=== PATIENT | female | born 1990 | race Caucasian/White ===

== ENCOUNTER 2018-01-01 13:52 | Emergency (ER) | payer SELFPAY ==
[~2018-01-01] VITALS: Ht 170.2 cm; Wt 131.5 kg
[~2018-01-01 13:52] MED LIST: ALPR0.5T PO; BISA5TAB8 PO; BREX2TAB PO; DCS100C PO; HC2.5C30 TOP; HYDR1TAB PO; HYDR1TAB66 PO; OXYC-12 PO; VITAMIN; YAZ
[2018-01-01] MEDS ORDERED: ASPIRIN 81 MG CHEW (CHILDREN'S ASA) PO ONE (14:00)
--- NOTE | 2018-01-01 14:04 | ED Chest Pain ---
General Stated Complaint: CHEST/BACK/LEFT ARM PAIN Source: patient Exam Limitations: no limitations History of Present Illness Date Seen by Provider: Jan 01, 2018 Time Seen by Provider: 14:02 Initial Comments To ER per private vehicle from [facility] with reports of left sided chest pain, left-sided thoracic back pain, left arm pain. This pain began yesterday. No shortness of breath. She was seen at the walk-in clinic at [facility] and had an EKG done and was told was abnormal. She was told to come back today for recheck. During her recheck today the EKG was repeated and continued to show ST elevation in lead aVL only. She was referred to the emergency room. Severity/Quality: moderate Location: central Associated Symptoms: fatigue Allergies and Home Medications Allergies Coded Allergies: Azithromycin (Unverified Adverse Reaction, N/V, 07/23/10) Patient Home Medication List Home Medication List Reviewed: Yes Review of Systems Constitutional: see HPI EENTM: No Symptoms Reported Respiratory: No Symptoms Reported Cardiovascular: See HPI, Chest Pain Gastrointestinal: No Symptoms Reported Genitourinary: No Symptoms Reported Musculoskeletal: no symptoms reported Skin: no symptoms reported Psychiatric/Neurological: No Symptoms Reported Endocrine: No Symptoms Reported Past Gxnndug-Dtgiuv-Jgseyg Hx Patient Social History Type Used: Electronic/Vapor Recent Foreign Travel: No Contact w/Someone Who Travel: No Recent Hopitalizations: Yes (2 vag deliveries and t&a 6 yrs ago) Surgeries Surgeries: Adenoidectomy, Gallbladder, Tonsillectomy, 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 Neurological Neurological Disorders: Headaches /Migraines Reproductive System Hx Reproductive Disorders: No 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 Psychosocial Behavioral Health Disorders: Anxiety, Depression Blood Transfusions Adverse Reaction to a Blood Tr: No Family Medical History Significant Family History: No Pertinent Family Hx Physical Exam Vital Signs Vital Signs - First Documented 01/01/18 13:52 Temp 98.9 Pulse 79 Resp 16 B/P (MAP) 151/95 (113) Pulse Ox 99 O2 Delivery Room Air Capillary Refill : General Appearance: No Apparent Distress, WD/WN, Obese HEENT: PERRL/EOMI, TMs Normal Respiratory: No Accessory Muscle Use, No Respiratory Distress Cardiovascular: Normal Peripheral Pulses Gastrointestinal: Normal Bowel Sounds, Non Tender, Soft Extremity: Normal Capillary Refill, Normal Inspection Neurologic/Psychiatric: Alert, Oriented x3 Skin: Normal Color, Warm/Dry Progress/Results/Core Measures Results/Orders Lab Results Laboratory Tests Test 01/01/18 14:24 01/01/18 14:28 Range/Units White Blood Count 9.9 4.3-11.0 10^3/uL Red Blood Count 4.74 4.35-5.85 10^6/uL Hemoglobin 13.4 11.5-16.0 G/DL Hematocrit 40 35-52 % Mean Corpuscular Volume 85 80-99 FL Mean Corpuscular Hemoglobin 28 25-34 PG Mean Corpuscular Hemoglobin Concent 33 32-36 G/DL Red Cell Distribution Width 13.5 10.0-14.5 % Platelet Count 258 130-400 10^3/uL Mean Platelet Volume 11.1 H 7.4-10.4 FL Neutrophils (%) (Auto) 73 42-75 % Lymphocytes (%) (Auto) 21 12-44 % Monocytes (%) (Auto) 5 0-12 % Eosinophils (%) (Auto) 1 0-10 % Basophils (%) (Auto) 0 0-10 % Neutrophils # (Auto) 7.2 1.8-7.8 X 10^3 Lymphocytes # (Auto) 2.1 1.0-4.0 X 10^3 Monocytes # (Auto) 0.5 0.0-1.0 X 10^3 Eosinophils # (Auto) 0.1 0.0-0.3 10^3/uL Basophils # (Auto) 0.0 0.0-0.1 10^3/uL Prothrombin Time 13.2 12.2-14.7 SEC INR Comment 1.0 0.8-1.4 Activated Partial Thromboplast Time 31 24-35 SEC D-Dimer 0.78 H 0.00-0.49 UG/ML Sodium Level 139 135-145 MMOL/L Potassium Level 3.8 3.6-5.0 MMOL/L Chloride Level 107 98-107 MMOL/L Carbon Dioxide Level 26 21-32 MMOL/L Anion Gap 6 5-14 MMOL/L Blood Urea Nitrogen 8 7-18 MG/DL Creatinine 0.83 0.60-1.30 MG/DL Estimat Glomerular Filtration Rate > 60 BUN/Creatinine Ratio 10 Glucose Level 114 H 70-105 MG/DL Calcium Level 9.3 8.5-10.1 MG/DL Magnesium Level 2.1 1.8-2.4 MG/DL Total Bilirubin 0.4 0.1-1.0 MG/DL Aspartate Amino Transf (AST/SGOT) 17 5-34 U/L Alanine Aminotransferase (ALT/SGPT) 17 0-55 U/L Alkaline Phosphatase 60 40-136 U/L Myoglobin 36.6 10.0-92.0 NG/ML Troponin I < 0.30 <0.30 NG/ML Total Protein 7.1 6.4-8.2 GM/DL Albumin 4.4 3.2-4.5 GM/DL Serum Test, Qualitative NEGATIVE NEGATIVE My Orders Orders - CR CARDOZA APRN Cbc With Automated Diff (01/01/18 14:00) Magnesium (01/01/18 14:00) Chest 1 View, Ap/Pa Only (01/01/18 14:00) Ekg Tracing (01/01/18 14:00) Cardiac Profile 1 (01/01/18 14:00) Comprehensive Metabolic Panel (01/01/18 14:00) Myoglobin Serum (01/01/18 14:00) Protime With Inr (01/01/18 14:00) Partial Thromboplastin Time (01/01/18 14:00) O2 (01/01/18 14:00) Monitor-Rhythm Ecg Trace Only (01/01/18 14:00) Aspirin Chewable Tablet (Baby Aspirin Ch (01/01/18 14:00) Saline Lock/Iv-Start (01/01/18 14:00) Fibrin Degradation Products (01/01/18 14:00) Ketorolac Injection (Toradol Injection) (01/01/18 14:15) Orphenadrine Injection (Norflex Injectio (01/01/18 14:15) Hcg,Qualitative Serum (01/01/18 14:34) Ct Angio Chest W (01/01/18 14:58) Iohexol Injection (Omnipaque 350 Mg/Ml 1 (01/01/18 15:15) Ns (Ivpb) (Sodium Chloride 0.9%) (01/01/18 15:15) Pharmacy Communication (Pharmacy Communi (01/01/18 15:08) Medications Given in ED Current Medications Medications Dose Ordered Sig/Maru Route Start Time Stop Time Status Last Admin Dose Admin Aspirin 324 mg ONCE ONCE PO 01/01/18 14:00 01/01/18 14:02 DC 01/01/18 14:27 324 MG Iohexol 150 ml ONCE ONCE IV 01/01/18 15:15 01/01/18 15:16 DC 01/01/18 15:15 125 ML Ketorolac Tromethamine 30 mg ONCE ONCE IVP 01/01/18 14:15 01/01/18 14:16 DC 01/01/18 14:34 30 MG Orphenadrine Citrate 60 mg ONCE ONCE IV 01/01/18 14:15 01/01/18 14:16 DC 01/01/18 14:33 60 MG Sodium Chloride 250 ml ONCE ONCE IV 01/01/18 15:15 01/01/18 15:16 DC 01/01/18 15:15 80 ML Vital Signs/I&O Vital Sign - Last 12Hours 01/01/18 01/01/18 13:52 16:18 Temp 98.9 98.6 Pulse 79 95 Resp 16 16 B/P (MAP) 151/95 (113) 124/88 Pulse Ox 99 99 O2 Delivery Room Air Room Air Departure Communication (Admissions) Progress Notes 1548-I did request records from [facility] to get a EKG for review. EKG that we have here does not show any ST segment elevation or depression. There is a flat T-wave in aVF, inverted T-wave in lead 3. Advised her that I do believe the chest//arm/back pain to be secondary to muscle given the absence of other findings. Patient is upset she was sent here to ER and we do not have any findings as a cause for her pain. No improvement in pain after Toradol and Norflex. I did offer her additional pain control here but she declined. Waiting for EKG to come from [facility] that we can review this. 1619- did receive the EKG from [facility]. I do not see any ST elevation in lead aVL when any of the leads that matter. There is no change from the [facility] EKG from our EKG. There is a wandering baseline/artifact on that EKG tho. Advised pt that pain is likely musculoskeletal. Impression Impression: Primary Impression: Chest pain Disposition: 01 HOME, SELF-CARE Condition: Stable Departure-Patient Inst. Decision time for Depature: 15:35 Referrals: [facility] (PCP/Family) Primary Care Physician Patient Instructions: Chest Pain (DC) CR CARDOZA APRN Jan 01, 2018 14:04
[2018-01-01] MEDS ORDERED: KETOROLAC 30 MG/ML VIAL IVP ONE (14:15)
[2018-01-01] MEDS ORDERED: ORPHENADRINE 60 MG/2 ML (NORFLEX) AMP IV ONE (14:15)
[2018-01-01 14:41] LABS: BASOPHILS % (AUTO) 0 % (0-10); EOSINOPHILS # (AUTO) 0.1 10^3/uL (0.0-0.3); EOSINOPHILS % (AUTO) 1 % (0-10); HEMATOCRIT 40 % (35-52); HEMOGLOBIN 13.4 G/DL (11.5-16.0); LYMPHOCYTES # (AUTO) 2.1 X 10^3 (1.0-4.0); LYMPHOCYTES % (AUTO) 21 % (12-44); MEAN CORPUSCULAR HEMOGLOBIN 28 PG (25-34); MEAN CORPUSCULAR HGB CONC 33 G/DL (32-36); MEAN CORPUSCULAR VOLUME 85 FL (80-99); MEAN PLATELET VOLUME 11.1 FL (7.4-10.4); MONOCYTES # (AUTO) 0.5 X 10^3 (0.0-1.0); MONOCYTES % (AUTO) 5 % (0-12); NEUTROPHILS # (AUTO) 7.2 X 10^3 (1.8-7.8); NEUTROPHILS % (AUTO) 73 % (42-75); PLATELET COUNT 258 10^3/uL (130-400); RED BLOOD COUNT 4.74 10^6/uL (4.35-5.85); RED CELL DISTRIBUTION WIDTH 13.5 % (10.0-14.5); WHITE BLOOD COUNT 9.9 10^3/uL (4.3-11.0)
[2018-01-01 14:42] LABS: PROTHROMBIN TIME PATIENT 13.2 SEC (12.2-14.7)
[2018-01-01 14:49] LABS: ALANINE AMINOTRANSFERASE 17 U/L (0-55); ALBUMIN 4.4 GM/DL (3.2-4.5); ALKALINE PHOSPHATASE 60 U/L (40-136); BILIRUBIN,TOTAL 0.4 MG/DL (0.1-1.0); BUN/CREATININE RATIO 10; CALCIUM 9.3 MG/DL (8.5-10.1); CARBON DIOXIDE 26 MMOL/L (21-32); CHLORIDE 107 MMOL/L (98-107); CREATININE SERUM 0.83 MG/DL (0.60-1.30); GFR ESTIMATED > 60; GLUCOSE 114 MG/DL (70-105); MAGNESIUM 2.1 MG/DL (1.8-2.4); POTASSIUM 3.8 MMOL/L (3.6-5.0); SODIUM 139 MMOL/L (135-145); TOTAL PROTEIN 7.1 GM/DL (6.4-8.2)
[2018-01-01 14:56] LABS: MYOGLOBIN SERUM 36.6 NG/ML (10.0-92.0)
--- NOTE | 2018-01-01 15:03 | Diagnostic Imaging Report ---
INDICATION: Chest pain. TIME OF EXAMINATION: 2:47 PM. FINDINGS: The heart size is normal. The pulmonary vascularity is unremarkable. The lungs are clear. No infiltrate, effusion, or pneumothorax is detected. IMPRESSION: No acute cardiopulmonary process is detected. Dictated by: Dictated on workstation # [id number]
[2018-01-01] MEDS ORDERED: SERT25TA PO (15:09)
[2018-01-01] MEDS ORDERED: IOHEXOL 350 MG/ML 150 ML (OMNIPAQUE 350) VIAL IV ONE (15:15)
[2018-01-01] MEDS ORDERED: NS 250 ML (IVPB) BAG IV ONE (15:15)
--- NOTE | 2018-01-01 15:34 | Diagnostic Imaging Report ---
PROCEDURE: CT angiography of the chest with contrast. TECHNIQUE: Multiple contiguous axial images were obtained through the chest after uneventful bolus administration of intravenous contrast. Reconstructed CTA MIP acquisitions were also performed. INDICATION: Chest pain. Evaluate for PE. COMPARISON: None. FINDINGS: There is no evidence of pulmonary embolus or acute thoracic aortic abnormality. There is no adenopathy in the mediastinum, hilum or axilla. There is no pneumothorax or pleural effusion. Heart size is normal. No pericardial effusion is seen. The lungs are clear. No acute osseous abnormality is seen. The gallbladder is absent. Visualized upper abdomen is otherwise unremarkable. IMPRESSION: No evidence of pulmonary embolus or other acute abnormality in the chest. Dictated by: Dictated on workstation # [id number]
[2018-01-01 16:18] VITALS: BP 124/88
== END 2018-01-01 16:18 | disposition home or self-care (01) ==
LOC: EDUNIT# 13:52 → ER 13:55
DX: R07.89 Other chest pain (principal); G43.909 Migraine, unspecified, not intractable, without status migrainosus; F41.9 Anxiety disorder, unspecified; F32.9 Major depressive disorder, single episode, unspecified; Z88.1 Allergy status to other antibiotic agents; Z98.51 Tubal ligation status; Z90.89 Acquired absence of other organs
CPT/HCPCS: 36415; 71045; 71275; 80053; 83735; 83874; 84484; 84703; 85025; 85379; 85610; 85730; 93005; 93041; 96374; 96375

== ENCOUNTER 2018-01-19 18:33 | Emergency (ER) | payer MEDICAID, OTHER ==
[~2018-01-19] VITALS: Ht 170.2 cm; Wt 133.8 kg
[~2018-01-19 18:33] MED LIST changes: +SERT25TA PO
--- OUTSIDE RECORDS SUMMARY | 2018-01-19 18:39 | XMS REPORT | Continuity of Care Document ---
Author Author [facility] Organization [facility] Address Unknown Phone Unavailable Allergies Active Description Code Type Severity Reaction Onset Reported/Identified Relationship to Patient Clinical Status Yes azithromycin [id number] Drug Allergy Unknown N/V 07/23/2010 Medications There is no data. Problems Date Dx Coded Attending Type Code Diagnosis Diagnosed By 09/16/2016 ADDISON TRAN Ot F17.210 NICOTINE DEPENDENCE, CIGARETTES, UNCOMPL 09/16/2016 ADDISON TRAN Ot G43.909 MIGRAINE, UNSP, NOT INTRACTABLE, WITHOUT 09/18/2016 ADDISON TRAN Ot F17.210 NICOTINE DEPENDENCE, CIGARETTES, UNCOMPL 09/18/2016 ADDISON TRAN Ot G43.909 MIGRAINE, UNSP, NOT INTRACTABLE, WITHOUT 01/05/2018 CR CARDOZA APRN Ot F32.9 MAJOR DEPRESSIVE DISORDER, SINGLE EPISOD 01/05/2018 CR CARDOZA APRN Ot F41.9 ANXIETY DISORDER, UNSPECIFIED 01/05/2018 CR CARDOZA APRN Ot G43.909 MIGRAINE, UNSP, NOT INTRACTABLE, WITHOUT 01/05/2018 CR CARDOZA APRN Ot R07.89 OTHER CHEST PAIN 01/05/2018 CR CARDOZA APRN Ot Z88.1 ALLERGY STATUS TO OTHER ANTIBIOTIC AGENT 01/05/2018 CR CARDOZA APRN Ot Z90.89 ACQUIRED ABSENCE OF OTHER ORGANS 01/05/2018 CR CARDOZA APRN Ot Z98.51 TUBAL LIGATION STATUS Procedures There is no data. Results Test Result Range Complete blood count (CBC) with automated white blood cell (WBC) differential - 01/01/18 14:24 Blood leukocytes automated count (number/volume) 9.9 10*3/uL 4.3-11.0 Blood erythrocytes automated count (number/volume) 4.74 10*6/uL 4.35-5.85 Venous blood hemoglobin measurement (mass/volume) 13.4 g/dL 11.5-16.0 Blood hematocrit (volume fraction) 40 % 35-52 Automated erythrocyte mean corpuscular volume 85 [foz_us] 80-99 Automated erythrocyte mean corpuscular hemoglobin (mass per erythrocyte) 28 pg 25-34 Automated erythrocyte mean corpuscular hemoglobin concentration measurement ( mass/volume) 33 g/dL 32-36 Automated erythrocyte distribution width ratio 13.5 % 10.0-14.5 Automated blood platelet count (count/volume) 258 10*3/uL 130-400 Automated blood platelet mean volume measurement 11.1 [foz_us] 7.4-10.4 Automated blood neutrophils/100 leukocytes 73 % 42-75 Automated blood lymphocytes/100 leukocytes 21 % 12-44 Blood monocytes/100 leukocytes 5 % 0-12 Automated blood eosinophils/100 leukocytes 1 % 0-10 Automated blood basophils/100 leukocytes 0 % 0-10 Blood neutrophils automated count (number/volume) 7.2 10*3 1.8-7.8 Blood lymphocytes automated count (number/volume) 2.1 10*3 1.0-4.0 Blood monocytes automated count (number/volume) 0.5 10*3 0.0-1.0 Automated eosinophil count 0.1 10*3/uL 0.0-0.3 Automated blood basophil count (count/volume) 0.0 10*3/uL 0.0-0.1 Comprehensive metabolic panel - 01/01/18 14:24 Serum or plasma sodium measurement (moles/volume) 139 mmol/L 135-145 Serum or plasma potassium measurement (moles/volume) 3.8 mmol/L 3.6-5.0 Serum or plasma chloride measurement (moles/volume) 107 mmol/L 98-107 Carbon dioxide 26 mmol/L 21-32 Serum or plasma anion gap determination (moles/volume) 6 mmol/L 5-14 Serum or plasma urea nitrogen measurement (mass/volume) 8 mg/dL 7-18 Serum or plasma creatinine measurement (mass/volume) 0.83 mg/dL 0.60-1.30 Serum or plasma urea nitrogen/creatinine mass ratio 10 NRG Serum or plasma creatinine measurement with calculation of estimated glomerular filtration rate > NRG Serum or plasma glucose measurement (mass/volume) 114 mg/dL 70-105 Serum or plasma calcium measurement (mass/volume) 9.3 mg/dL 8.5-10.1 Serum or plasma total bilirubin measurement (mass/volume) 0.4 mg/dL 0.1-1.0 Serum or plasma alkaline phosphatase measurement (enzymatic activity/volume) 60 U/L 40-136 Serum or plasma aspartate aminotransferase measurement (enzymatic activity/ volume) 17 U/L 5-34 Serum or plasma alanine aminotransferase measurement (enzymatic activity/volume ) 17 U/L 0-55 Serum or plasma protein measurement (mass/volume) 7.1 g/dL 6.4-8.2 Serum or plasma albumin measurement (mass/volume) 4.4 g/dL 3.2-4.5 Magnesium - 01/01/18 14:24 Magnesium 2.1 mg/dL 1.8-2.4 PT panel in platelet poor plasma by coagulation assay - 01/01/18 14:24 Prothrombin time (PT) in platelet poor plasma by coagulation assay 13.2 s 12.2-14.7 INR in platelet poor plasma or blood by coagulation assay 1.0 0.8-1.4 Activated partial thromboplastin time (aPTT) in platelet poor plasma bycoagulation assay - 01/01/18 14:24 Activated partial thromboplastin time (aPTT) in platelet poor plasma bycoagulation assay 31 s 24-35 Fibrin D-dimer FEU measurement in platelet poor plasma (mass/volume) - 14:24 Fibrin D-dimer FEU measurement in platelet poor plasma (mass/volume) 0.78 ug/mL 0.00-0.49 Serum or plasma troponin i.cardiac measurement (mass/volume) - 01/01/18 14:24 Serum or plasma troponin i.cardiac measurement (mass/volume) < ng/ mL <0.30 Myoglobin, serum - 01/01/18 14:24 Myoglobin, serum 36.6 ng/mL 10.0-92.0 Serum or plasma choriogonadotropin ( test) detection - 01/01/18 14:28 Serum or plasma choriogonadotropin ( test) detection NEGATIVE NEGATIVE Encounters ACCT No. Visit Date/Time Discharge Status Pt. Type Provider Facility Loc./Unit Complaint [id number] 01/01/2018 13:55:00 01/01/2018 16:18:00 DIS Outpatient CR CARDOZA APRN [facility] ER CHEST/BACK/LEFT ARM PAIN [id number] 09/16/2016 14:02:00 09/16/2016 17:13:00 DIS Emergency ADDISON TRAN [facility] ER MIGRAINE [id number] 07/02/2015 14:35:00 07/02/2015 23:59:59 CLS Outpatient STEVEN EDGAR APRN [facility] QUICK
--- NOTE | 2018-01-19 18:49 | ED GU-Female ---
General Stated Complaint: 5 WKS PREG/BLOOD WHEN WIPING Source: patient, spouse Exam Limitations: no limitations History of Present Illness Date Seen by Provider: Jan 19, 2018 Time Seen by Provider: 18:37 Initial Comments The patient presents to the ER with her significant other and a chief complaint that today she started having some left lower quadrant abdominal pain and when she wiped she knows some blood. She has no history of hemorrhoids. She thought maybe it was a UTI so she went to urgent care and he said that they did a urine pence test told her she was which ER he knew and told her she did not have an infection. They gave her orders to get an outpatient urgent ultrasound done. The patient's having no fevers chills history of constipation or diarrhea. No nausea or vomiting. She is a at 5 weeks and 1 day with the last menstrual period of December 14, 2017. Allergies and Home Medications Allergies Coded Allergies: Azithromycin (Unverified Adverse Reaction, N/V, 07/23/10) Patient Home Medication List Home Medication List Reviewed: Yes Review of Systems Constitutional: No chills, No fever, No malaise EENTM: No ear discharge, No ear pain Respiratory: No cough, No short of breath Cardiovascular: No chest pain, No palpitations Gastrointestinal: abdominal pain (LLQ); No constipation, No diarrhea, No heartburn Genitourinary: denies discharge, denies dysuria : Yes LMP: Dec 14, 2017 (5 weeks 1 day) Musculoskeletal: No back pain, No joint pain Skin: No pruritus, No rash Past Vdisxfo-Vpttss-Mimmlr Hx Patient Social History Alcohol Use: Denies Use Recreational Drug Use: Yes Drug of Choice: marijuana Smoking Status: Former Smoker Type Used: Electronic/Vapor Recent Foreign Travel: No Contact w/Someone Who Travel: No Recent Hopitalizations: No (2 vag deliveries and t&a 6 yrs ago) Seasonal Allergies Seasonal Allergies: No Past Medical History Surgeries: Yes Adenoidectomy, Gallbladder, Tonsillectomy, 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 Respiratory: No Cardiac: No Neurological: Yes Headaches /Migraines 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 Sexually Transmitted Disease: No Gastrointestinal: No Musculoskeletal: No Endocrine: No Psychosocial: Yes Anxiety, Depression Integumentary: No Blood Disorders: No Adverse Reaction/Blood Tranf: No Family Medical History No Pertinent Family Hx Physical Exam Vital Signs Vital Signs - First Documented 01/19/18 18:49 Temp 97.7 Pulse 111 Resp 18 B/P (MAP) 171/95 (120) Pulse Ox 100 O2 Delivery Room Air Capillary Refill : General Appearance: WD/WN, no apparent distress HEENT: PERRL/EOMI, pharynx normal Cardiovascular: regular rate, rhythm, no edema Respiratory: no respiratory distress, no accessory muscle use Gastrointestinal: normal bowel sounds, soft, tenderness (Left lower quadrant) Extremities: non-tender, normal inspection, no pedal edema, normal capillary refill Neurologic/Psychiatric: alert, normal mood/affect, oriented x 3 Skin: normal color, warm/dry Progress/Results/Core Measures Suspected Sepsis SIRS Temperature: Pulse: Respiratory Rate: Laboratory Tests 01/19/18 18:55: White Blood Count 10.5 Blood Pressure / Mean: Laboratory Tests 01/19/18 18:55: Creatinine 0.74, Platelet Count 268 Results/Orders Lab Results Laboratory Tests Test 01/19/18 18:55 01/19/18 19:02 Range/Units White Blood Count 10.5 4.3-11.0 10^3/uL Red Blood Count 4.53 4.35-5.85 10^6/uL Hemoglobin 12.6 11.5-16.0 G/DL Hematocrit 39 35-52 % Mean Corpuscular Volume 85 80-99 FL Mean Corpuscular Hemoglobin 28 25-34 PG Mean Corpuscular Hemoglobin Concent 33 32-36 G/DL Red Cell Distribution Width 13.8 10.0-14.5 % Platelet Count 268 130-400 10^3/uL Mean Platelet Volume 10.2 7.4-10.4 FL Neutrophils (%) (Auto) 65 42-75 % Lymphocytes (%) (Auto) 25 12-44 % Monocytes (%) (Auto) 7 0-12 % Eosinophils (%) (Auto) 2 0-10 % Basophils (%) (Auto) 0 0-10 % Neutrophils # (Auto) 6.8 1.8-7.8 X 10^3 Lymphocytes # (Auto) 2.7 1.0-4.0 X 10^3 Monocytes # (Auto) 0.8 0.0-1.0 X 10^3 Eosinophils # (Auto) 0.2 0.0-0.3 10^3/uL Basophils # (Auto) 0.0 0.0-0.1 10^3/uL Sodium Level 140 135-145 MMOL/L Potassium Level 3.7 3.6-5.0 MMOL/L Chloride Level 109 H 98-107 MMOL/L Carbon Dioxide Level 22 21-32 MMOL/L Anion Gap 9 5-14 MMOL/L Blood Urea Nitrogen 10 7-18 MG/DL Creatinine 0.74 0.60-1.30 MG/DL Estimat Glomerular Filtration Rate > 60 BUN/Creatinine Ratio 14 Glucose Level 92 70-105 MG/DL Calcium Level 9.6 8.5-10.1 MG/DL Human Chorionic Gonadotropin, Quant 2611 H <5 MIU/ML Urine Color YELLOW Urine Clarity CLEAR Urine pH 5 5-9 Urine Specific [place] 1.030 H 1.016-1.022 Urine Protein 2+ H NEGATIVE Urine Glucose (UA) NEGATIVE NEGATIVE Urine Ketones NEGATIVE NEGATIVE Urine Nitrite NEGATIVE NEGATIVE Urine Bilirubin 1+ H NEGATIVE Urine Urobilinogen 1 NORMAL MG/DL Urine Leukocyte Esterase 1+ H NEGATIVE Urine RBC (Auto) 2+ H NEGATIVE Urine RBC 0-2 /HPF Urine WBC 0-2 /HPF Urine Squamous Epithelial Cells 2-5 /HPF Urine Crystals PRESENT H /LPF Urine Calcium Oxalate Crystals MODERATE H /LPF Urine Bacteria NONE /HPF Urine Casts NONE /LPF Urine Mucus NEGATIVE /LPF Urine Culture Indicated NO My Orders Orders - ANDER PIERRE Basic Metabolic Panel (01/19/18 18:43) Cbc With Automated Diff (01/19/18 18:43) Hcg,Quantitative (01/19/18 18:43) Ua Culture If Indicated (01/19/18 18:43) Us Ob<14 Wks Sngle W/Transvag (01/19/18 18:43) Vital Signs/I&O 01/19/18 18:49 Temp 97.7 Pulse 111 Resp 18 B/P (MAP) 171/95 (120) Pulse Ox 100 O2 Delivery Room Air Capillary Refill : Progress Note : Time: 18:48 Progress Note Patient has a copy of her records demonstrating a urine test was positive but no urinalysis as included so we'll repeat a UA get a BMP and CBC looking for kidney dysfunction, anemia. Given her recent onset this is unlikely an ultrasound will be helpful to determine that her pain is not because of an ectopic . Diagnostic Imaging Diagonstic Imaging: Ultrasound Plain Films/CT/US/NM/MRI: pelvis (OB less than 14 weeks) Comments NAME: MY DE LE[facility] REC#: [id number] PHYSICIAN: ANDER PIERRE MD CC: DEBBI KINNEY MD; ANDER PIERRE Page 1 of 1 RADIOLOGY REPORT [facility], [facility]. [place], [place] CC: DEBBI KINNEY MD; ANDER PIERRE Page 1 of 1 RADIOLOGY REPORT NAME: MY DE LE[facility] REC#: [id number] PT STATUS: REG ER : 1990 PHYSICIAN: ANDER PIERRE MD ADMIT DATE: 01/19/18/ER Signed Date of Exam: 01/19/18 US OB<14 WKS SNGLE W/TRANSVAG INDICATION: Threatened miscarriage. TECHNIQUE: Transabdominal and endovaginal OB sonogram was performed. FINDINGS: There is an intrauterine gestational sac which is oval in shape. Placenta is not seen. It has a mean sac diameter of 5 mm which corresponds to a gestational age of 5 weeks. There is no pole or yolk sac seen. There is a 2.4 cm cyst on the left ovary and a 2 cm cyst on the right ovary. There is no free fluid. IMPRESSION: Intrauterine gestational sac with estimated gestational age of 5 weeks. Dictated by: Dictated on workstation # [id number] Dict: 01/19/181941 Trans: 01/19/181953 Interpreted by: DEBBI KINNEY MD Electronically signed by: DEBBI KINNEY MD 01/19/181953 Reviewed: Reviewed by Me Departure Impression Primary Impression: Threatened miscarriage in early Disposition: 01 HOME, SELF-CARE Condition: Stable Departure-Patient Inst. Decision time for Depature: 20:54 Referrals: SARAHY CLOMENARES MD (PCP) Primary Care Physician [facility] (Family) Primary Care Physician Patient Instructions: Threatened Miscarriage (DC) Add. Discharge Instructions: Follow with Dr Colmenares by calling tomorrow. You will need a repeat blood draw to see what the HCG is in 2-3 days. Copy Copies To 1: MAVERICK FERRARI TITUS J Jan 19, 2018 18:49
[2018-01-19 19:02] LABS: BASOPHILS % (AUTO) 0 % (0-10); EOSINOPHILS # (AUTO) 0.2 10^3/uL (0.0-0.3); EOSINOPHILS % (AUTO) 2 % (0-10); HEMATOCRIT 39 % (35-52); HEMOGLOBIN 12.6 G/DL (11.5-16.0); LYMPHOCYTES # (AUTO) 2.7 X 10^3 (1.0-4.0); LYMPHOCYTES % (AUTO) 25 % (12-44); MEAN CORPUSCULAR HEMOGLOBIN 28 PG (25-34); MEAN CORPUSCULAR HGB CONC 33 G/DL (32-36); MEAN CORPUSCULAR VOLUME 85 FL (80-99); MEAN PLATELET VOLUME 10.2 FL (7.4-10.4); MONOCYTES # (AUTO) 0.8 X 10^3 (0.0-1.0); MONOCYTES % (AUTO) 7 % (0-12); NEUTROPHILS # (AUTO) 6.8 X 10^3 (1.8-7.8); NEUTROPHILS % (AUTO) 65 % (42-75); PLATELET COUNT 268 10^3/uL (130-400); RED BLOOD COUNT 4.53 10^6/uL (4.35-5.85); RED CELL DISTRIBUTION WIDTH 13.8 % (10.0-14.5); WHITE BLOOD COUNT 10.5 10^3/uL (4.3-11.0)
[2018-01-19 19:07] LABS: CLARITY,URINE CLEAR; COLOR,URINE YELLOW; GLUCOSE, URINE (UA) NEGATIVE (NEGATIVE); KETONES,URINE NEGATIVE (NEGATIVE); LEUKOCYTE ESTERASE ,URINE 1+ (NEGATIVE); NITRITE,URINE NEGATIVE (NEGATIVE); PH,URINE 5 (5-9); PROTEIN,URINE 2+ (NEGATIVE); UROBILINOGEN,URINE 1 MG/DL (NORMAL)
[2018-01-19 19:20] LABS: BUN/CREATININE RATIO 14; CALCIUM 9.6 MG/DL (8.5-10.1); CARBON DIOXIDE 22 MMOL/L (21-32); CHLORIDE 109 MMOL/L (98-107); CREATININE SERUM 0.74 MG/DL (0.60-1.30); GFR ESTIMATED > 60; GLUCOSE 92 MG/DL (70-105); POTASSIUM 3.7 MMOL/L (3.6-5.0); SODIUM 140 MMOL/L (135-145)
[2018-01-19 19:31] LABS: BILIRUBIN,URINE 1+ (NEGATIVE); CALCIUM OXALATE CRYSTALS,UR MODERATE /LPF; RBC,URINE 0-2 /HPF; WBC,URINE 0-2 /HPF
--- NOTE | 2018-01-19 19:52 | Diagnostic Imaging Report ---
INDICATION: Threatened miscarriage. TECHNIQUE: Transabdominal and endovaginal OB sonogram was performed. FINDINGS: There is an intrauterine gestational sac which is oval in shape. Placenta is not seen. It has a mean sac diameter of 5 mm which corresponds to a gestational age of 5 weeks. There is no pole or yolk sac seen. There is a 2.4 cm cyst on the left ovary and a 2 cm cyst on the right ovary. There is no free fluid. IMPRESSION: Intrauterine gestational sac with estimated gestational age of 5 weeks. Dictated by: Dictated on workstation # [id number]
[2018-01-19 21:05] VITALS: BP 150/80
== END 2018-01-19 21:05 | disposition home or self-care (01) ==
LOC: EDUNIT# 18:33 → ER 18:35
DX: O20.0 Threatened abortion (principal); O99.351 Diseases of the nervous system complicating pregnancy, first trimester; G43.909 Migraine, unspecified, not intractable, without status migrainosus; O99.341 Other mental disorders complicating pregnancy, first trimester; F41.9 Anxiety disorder, unspecified; F32.9 Major depressive disorder, single episode, unspecified; O99.321 Drug use complicating pregnancy, first trimester; F12.10 Cannabis abuse, uncomplicated; Z87.891 Personal history of nicotine dependence; Z90.49 Acquired absence of other specified parts of digestive tract; Z98.51 Tubal ligation status; Z88.1 Allergy status to other antibiotic agents; Z3A.01 Less than 8 weeks gestation of pregnancy
CPT/HCPCS: 36415; 76801; 76817; 80048; 81000; 84702; 85025

== ENCOUNTER → 2018-02-19 | Outpatient (CLI) | payer MEDICAID ==
--- NOTE | 2018-02-19 17:14 | Diagnostic Imaging Report ---
PROCEDURE: US OB SINGLE FETUS <14 WKS. TECHNIQUE: Multiple real-time grayscale images were obtained over the gravid uterus in various projections. INDICATION: . COMPARISON: 01/26/2018 FINDINGS: There is a single live intrauterine gestation demonstrated. Latta-rump length measures about 2.5 cm which corresponds to an estimated gestational age of 9 weeks 2 days yielding an NADJA of 09/22/2018. cardiac activity is detected with a heart rate of 169 beats per minute. There is a 2.9 cm left ovarian cyst, probably a corpus luteum cyst. No other acute abnormality is seen. IMPRESSION: 1. There is a single live intrauterine gestation with estimated gestational age of 9 weeks 2 days based on today's ultrasound with a heart rate of 169 beats per minute. No acute abnormality is suspected. 2. 2.9 cm probable left corpus luteum cyst. Dictated by: Dictated on workstation # [id number]
== END ==
LOC: RAD 16:41
PROVIDERS: ATTEND Family Medicine
DX: Z34.81 Encounter for supervision of other normal pregnancy, first trimester (principal); Z3A.09 9 weeks gestation of pregnancy
CPT/HCPCS: 76801

== ENCOUNTER → 2018-03-20 | Outpatient (CLI) | payer MEDICAID | LOC: CARD 13:11 | PROVIDERS: ATTEND Nurse Practitioner Family | DX: R07.9 Chest pain, unspecified (principal); R00.2 Palpitations; R06.09 Other forms of dyspnea; R60.0 Localized edema; I07.1 Rheumatic tricuspid insufficiency; Z72.0 Tobacco use; Z68.42 Body mass index [BMI] 45.0-49.9, adult | CPT/HCPCS: 93306 ==

== ENCOUNTER 2018-04-04 21:03 | Emergency (ER) | payer MEDICAID ==
[~2018-04-04] VITALS: Ht 170.2 cm; Wt 133.8 kg
--- NOTE | 2018-04-04 21:27 | ED GI ---
General Chief Complaint: Rect Problems Stated Complaint: HEMORRHOID/16 WEEKS Source of Information: Patient Exam Limitations: No Limitations History of Present Illness Date Seen by Provider: Apr 04, 2018 Time Seen by Provider: 21:21 Initial Comments Patient presents to the ER by private conveyance with a chief complaint last couple days progressively worsening pain in her rectum/anus consistent with her history of hemorrhoids. She's never had a fissure. She says she had diarrhea couple days ago and has been staying very regular otherwise. She has been using her pramoxine and hydrocortisone cream but has not gotten better. She's had to have her hemorrhoids lanced multiple times in the past. She says she's been doing very well here lately though is just because she is 16 weeks . She is having a lot of anxiety with this as well. Allergies and Home Medications Allergies Coded Allergies: azithromycin (Unverified Adverse Reaction, Unknown, N/V, 04/04/18) Home Medications Hydrocortisone/Pramoxine 59 Ml Lotion, 5 ML TP Q4H PRN for PAIN-MODERATE Prescribed by: ANDER PIERRE on 04/04/182128 Patient Home Medication List Home Medication List Reviewed: Yes Review of Systems Constitutional: No chills, No diaphoresis EENTM: No Blurred Vision, No Double Vision Respiratory: Denies Cough, Denies Orthopnea Cardiovascular: Denies Chest Pain, Denies Lightheadedness Gastrointestinal: Denies Constipated, Denies Diarrhea, Denies Nausea Genitourinary: Denies Discharge, Denies Drainage Musculoskeletal: No back pain, No joint pain Past Ojcibmq-Uvhqjl-Yadmyu Hx Patient Social History Alcohol Use: Denies Use Recreational Drug Use: Yes Drug of Choice: marijuana Smoking Status: Current Everyday Smoker Type Used: Electronic/Vapor Recent Foreign Travel: No Contact w/Someone Who Travel: No Recent Hopitalizations: No (2 vag deliveries and t&a 6 yrs ago) Seasonal Allergies Seasonal Allergies: No Past Medical History Surgeries: Yes Adenoidectomy, Gallbladder, Tonsillectomy, 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 Respiratory: No Cardiac: No Neurological: Yes Headaches /Migraines 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 Sexually Transmitted Disease: No Gastrointestinal: No Musculoskeletal: No Endocrine: No Psychosocial: Yes Anxiety, Depression Integumentary: No Blood Disorders: No Adverse Reaction/Blood Tranf: No Family Medical History No Pertinent Family Hx Physical Exam Vital Signs Vital Signs - First Documented 04/04/18 21:07 Temp 98.3 Pulse 79 Resp 16 B/P (MAP) 140/88 (105) Pulse Ox 100 Capillary Refill : General Appearance: WD/WN, no apparent distress HEENT: PERRL/EOMI, pharynx normal Respiratory: no respiratory distress, no accessory muscle use Cardiovascular: normal peripheral pulses, regular rate, rhythm Gastrointestinal: normal bowel sounds, non tender, soft Rectal: hemorrhoids (bluish engorged/infarcted 9:00 position hemorrhoid that is present and tender palpation.) Extremities: normal inspection Procedures/Interventions I&D : Site: hemorrhoid 9:00 Blade Size: 11 I & D Procedure: betadine prep Progress Infiltrated with 1% lidocaine without epinephrine 2 cc and then made a small surgical incision with 11 blade scalpel and expressed about 2 cc of blood clot. Patient tolerated the procedure well. Progress/Results/Core Measures Results/Orders My Orders Orders - ANDER PIERRE Lidocaine 1% Inj 20 Ml (Xylocaine 1% Inj (04/04/18 21:30) Vital Signs/I&O 04/04/18 21:07 Temp 98.3 Pulse 79 Resp 16 B/P (MAP) 140/88 (105) Pulse Ox 100 Departure Impression Primary Impression: Hemorrhoids Qualified Codes: K64.5 - Perianal venous thrombosis Disposition: 01 HOME, SELF-CARE Condition: Improved Departure-Patient Inst. Decision time for Depature: 21:39 Referrals: KAUSHAL LICONA DO (PCP/Family) Primary Care Physician Patient Instructions: Hemorrhoids (DC) Add. Discharge Instructions: Utilize sitz baths, fiber and keep your stools regular. Use the spray foam pramoxine and hydrocortisone cream liberally. All discharge instructions reviewed with patient and/or family. Voiced understanding. Scripts Hydrocortisone/Pramoxine (Analpram Hc 2.5%-1% Lotion) 59 Ml Lotion 5 ML TP Q4H PRN for PAIN-MODERATE for 7 Days, #1 EACH 0 Refills Prov: ANDER PIERRE 04/04/18 Work/School Note: Work Release Form Date Seen in the Emergency Department: Apr 04, 2018 Return to Work: Apr 07, 2018 Restrictions: No Restrictions Copy Copies To 1: KAUSHAL LICONA TITUS J Apr 04, 2018 21:27
[2018-04-04] MEDS ORDERED: HYDR59LO10 TP (21:29)
[2018-04-04] MEDS ORDERED: LIDOCAINE 1% INJ 20 ML 20 ML VIAL INJ ONE (21:30)
[2018-04-04 22:08] VITALS: BP 130/80
== END 2018-04-04 22:08 | disposition home or self-care (01) ==
LOC: EDUNIT# 21:03 → ER 21:04
DX: O22.42 Hemorrhoids in pregnancy, second trimester (principal); O99.342 Other mental disorders complicating pregnancy, second trimester; F12.90 Cannabis use, unspecified, uncomplicated; F17.210 Nicotine dependence, cigarettes, uncomplicated; Z98.51 Tubal ligation status; Z90.89 Acquired absence of other organs; Z88.1 Allergy status to other antibiotic agents; Z3A.16 16 weeks gestation of pregnancy
CPT/HCPCS: 99283

== ENCOUNTER → 2018-05-04 | Outpatient (CLI) | payer MEDICAID ==
[~2018-05-04] MED LIST changes: +HYDR59LO10 TP
--- NOTE | 2018-05-04 15:35 | Diagnostic Imaging Report ---
INDICATION: survey. TECHNIQUE: Multiple real-time grayscale images were obtained over the gravid uterus. COMPARISON: 02/19/2018. FINDINGS: There is a single live fetus in a variable presentation. Placenta is anterior. Amniotic fluid volume is normal. heart rate was recorded at 135 beats per minute. Cervical length is 5.7 cm. survey demonstrates kidneys, bladder and stomach to be unremarkable. The brain is unremarkable. The spine is unremarkable. There is a three-vessel cord but the cord insertion was not well seen on today's study. Four-chamber heart view was not well seen. Biometrical measurements are as follows: Biparietal 4.4 cm, age 19 weeks 3 days. Head circumference 17.41 cm, age 20 weeks 0 days. Abdominal circumference 15.78 cm, age 21 weeks 0 days. Femur length 3.25 cm, age 20 weeks 1 days. Sonographic estimate age: 20 weeks 1 days. Sonographic estimated date of delivery: 09/20/2018. Estimated Weight: 355 gm (+/- 52 gm). LMP percentile: 79%. heart rate: 135 beats per minute. number: 1 of 1. IMPRESSION: Single live IUP approximately 20 weeks gestational age with estimated date of confinement sonographically of 09/20/2018. survey is unremarkable although the four-chamber heart view and cord insertion were not well demonstrated on today's study and followup could be performed. Dictated by: Dictated on workstation # [id number]
== END ==
LOC: RAD 13:59
PROVIDERS: ATTEND Obstetrics & Gynecology
DX: Z36.89 Encounter for other specified antenatal screening (principal); Z3A.20 20 weeks gestation of pregnancy
CPT/HCPCS: 76805

== ENCOUNTER 2018-06-11 14:08 | Outpatient (CLI) | payer MEDICAID ==
[~2018-06-11] VITALS: Ht 170.2 cm; Wt 131.8 kg
[2018-06-11 14:20] VITALS: BP 122/60
--- NOTE | 2018-06-15 22:17 | Physician Query-Final Dx ---
PRIMITIVO DAVIS 06/15/18 10:17pm: Clinic Account Progress/Dx Physician Query: Please give diagnosis Please provide diagnosis and weeks of gestation. Date of Service Jun 11, 2018 at 14:08 KAUSHAL LICONA DO 06/23/18 4:38pm: Clinic Account Progress/Dx DIAGNOSIS: Diagnosis 26 week IUP Cramping and spotting in PRIMITIVO DAVIS Jun 15, 2018 10:17 pm KAUSHAL LICONA DO Jun 23, 2018 4:38 pm
== END 2018-06-11 15:45 | disposition home or self-care (01) ==
LOC: WSo 14:08 → LDRP 14:09 → WSo 15:45
PROVIDERS: ATTEND Obstetrics & Gynecology
DX: O26.852 Spotting complicating pregnancy, second trimester (principal); Z3A.26 26 weeks gestation of pregnancy
CPT/HCPCS: 99213

== ENCOUNTER 2018-06-24 16:27 | Outpatient (CLI) | payer MEDICAID ==
[~2018-06-24] VITALS: Ht 170.2 cm; Wt 132.9 kg
[2018-06-24 16:41] VITALS: BP 125/67
[2018-06-24 17:22] LABS: BILIRUBIN,URINE NEGATIVE (NEGATIVE); COLOR,URINE YELLOW; GLUCOSE, URINE (UA) NEGATIVE (NEGATIVE); KETONES,URINE NEGATIVE (NEGATIVE); LEUKOCYTE ESTERASE ,URINE 1+ (NEGATIVE); NITRITE,URINE NEGATIVE (NEGATIVE); PH,URINE 7 (5-9); PROTEIN,URINE NEGATIVE (NEGATIVE); UROBILINOGEN,URINE 1 MG/DL (NORMAL)
[2018-06-24 17:23] LABS: BACTERIA,URINE FEW /HPF; CLARITY,URINE CLEAR; WBC,URINE 0-2 /HPF
[2018-06-24] MEDS ORDERED: NITR-65 PO (17:42)
[2018-06-24] MEDS ORDERED: FLU QUADRIvalent (5+ YOA) 2018-2019 (AFLURIA) 0.5 ML IM ONE (18:45)
[2018-06-24 20:18] LABS: AMORPHOUS SEDIMENT,UR MOD AMOR PHOSPHATE /LPF
--- NOTE | 2018-06-29 10:05 | Physician Query-Final Dx ---
GRACIELA RIDLEY 06/29/18 1005: Clinic Account Progress/Dx Physician Query: Please give diagnosis Please give a diagnosis and the weeks of gestation thank you Date of Service Jun 24, 2018 at 16:27 JOE RIDER MD 06/30/18 1245: Clinic Account Progress/Dx DIAGNOSIS: Diagnosis False labor approximately 30 weeks gestation with EDC of September 20, 2018 GRACIELA RIDLEY Jun 29, 2018 10:05 JOE RIDER MD Jun 30, 2018 12:45
== END 2018-06-24 17:52 | disposition home or self-care (01) ==
LOC: LDRP 16:27 → WSo 16:27
PROVIDERS: ATTEND Obstetrics & Gynecology
DX: O47.02 False labor before 37 completed weeks of gestation, second trimester (principal); Z3A.27 27 weeks gestation of pregnancy
CPT/HCPCS: 81000; 87077; 87088; 87186; 99213

== ENCOUNTER 2018-07-09 11:00 | Emergency (ER) | payer MEDICAID ==
[~2018-07-09] VITALS: Ht 170.2 cm; Wt 131.5 kg
[~2018-07-09 11:00] MED LIST changes: +NITR-65 PO
[2018-07-09 11:27] LABS: BASOPHILS % (AUTO) 0 % (0-10); EOSINOPHILS # (AUTO) 0.1 10^3/uL (0.0-0.3); EOSINOPHILS % (AUTO) 1 % (0-10); HEMATOCRIT 32 % (35-52); HEMOGLOBIN 10.4 G/DL (11.5-16.0); LYMPHOCYTES # (AUTO) 1.4 X 10^3 (1.0-4.0); LYMPHOCYTES % (AUTO) 16 % (12-44); MEAN CORPUSCULAR HEMOGLOBIN 28 PG (25-34); MEAN CORPUSCULAR HGB CONC 33 G/DL (32-36); MEAN CORPUSCULAR VOLUME 86 FL (80-99); MEAN PLATELET VOLUME 10.4 FL (7.4-10.4); MONOCYTES # (AUTO) 0.5 X 10^3 (0.0-1.0); MONOCYTES % (AUTO) 6 % (0-12); NEUTROPHILS # (AUTO) 6.6 X 10^3 (1.8-7.8); NEUTROPHILS % (AUTO) 77 % (42-75); PLATELET COUNT 198 10^3/uL (130-400); RED BLOOD COUNT 3.72 10^6/uL (4.35-5.85); RED CELL DISTRIBUTION WIDTH 15.3 % (10.0-14.5); WHITE BLOOD COUNT 8.5 10^3/uL (4.3-11.0)
[2018-07-09 11:45] LABS: ALANINE AMINOTRANSFERASE 16 U/L (0-55); ALBUMIN 3.5 GM/DL (3.2-4.5); ALKALINE PHOSPHATASE 82 U/L (40-136); BILIRUBIN,TOTAL 0.4 MG/DL (0.1-1.0); BUN/CREATININE RATIO 8; CALCIUM 9.1 MG/DL (8.5-10.1); CARBON DIOXIDE 20 MMOL/L (21-32); CHLORIDE 108 MMOL/L (98-107); CREATININE SERUM 0.62 MG/DL (0.60-1.30); GFR ESTIMATED > 60; GLUCOSE 97 MG/DL (70-105); POTASSIUM 4.1 MMOL/L (3.6-5.0); SODIUM 137 MMOL/L (135-145); TOTAL PROTEIN 6.3 GM/DL (6.4-8.2)
[2018-07-09 11:53] LABS: BILIRUBIN,URINE NEGATIVE (NEGATIVE); CLARITY,URINE CLEAR; COLOR,URINE YELLOW; GLUCOSE, URINE (UA) NEGATIVE (NEGATIVE); KETONES,URINE NEGATIVE (NEGATIVE); LEUKOCYTE ESTERASE ,URINE 1+ (NEGATIVE); NITRITE,URINE NEGATIVE (NEGATIVE); PH,URINE 7 (5-9); PROTEIN,URINE NEGATIVE (NEGATIVE); UROBILINOGEN,URINE NORMAL (NORMAL)
[2018-07-09 12:04] LABS: BACTERIA,URINE TRACE /HPF; RBC,URINE RARE /HPF
--- NOTE | 2018-07-09 12:38 | ED Chest Pain ---
General Chief Complaint: Chest Pain Stated Complaint: CHEST PAIN Nursing Triage Note: PT AMB TO ROOM #8 W/O DIFFICULTY. A&OX4. C/O LT SIDE CHEST PAIN THAT RADIATES TO BACK AND DOWN LT ARM. REPORTS SHE BEGAN TO FEEL HEART PALPITATIONS APPROX 1.5 WKS AGO AND BEGAN TO HAVE CHEST PAIN YESTERDAY. PT REPORTS SHE WOKE UP THIS MORNING AND CHEST PAIN WAS INCREASINGLY SEVERE AND WANTED TO BE SEEN IN ED. PT CURRENTLY 30WKS AND HAS HAD NO DIFFICULTY THUS FAR. Nursing Sepsis Screen: No Definite Risk Source: patient Exam Limitations: no limitations History of Present Illness Date Seen by Provider: Jul 09, 2018 Time Seen by Provider: 12:32 Initial Comments The patient is a 28-year-old white female who is 30 weeks with her third child. She reports that 2-3 days ago she began to have some chest pain. This was central and high sternal area. There was some radiation through to the back. The pain seemed to come and go. She has previously had heartburn but this does not seem quite the same. There has been no real problem with to this point. Her other children are 7 and 10 years old. Timing/Duration: 2-3 days Severity/Quality: sharp Location: substernal Radiation: back Prior CP/Workup: no prior chest pain Allergies and Home Medications Allergies Coded Allergies: azithromycin (Unverified Adverse Reaction, Unknown, N/V, 04/04/18) Home Medications Nitrofurantoin Monohyd/M-Cryst 100 Mg Capsule, 1 TAB PO BID, (Reported) Patient Home Medication List Home Medication List Reviewed: Yes Review of Systems Review of Systems Constitutional: see HPI EENTM: No Symptoms Reported Respiratory: No Symptoms Reported Cardiovascular: Chest Pain Gastrointestinal: No Symptoms Reported Genitourinary: No Symptoms Reported Musculoskeletal: no symptoms reported Skin: no symptoms reported Psychiatric/Neurological: No Symptoms Reported Endocrine: No Symptoms Reported Hematologic/Lymphatic: No Symptoms Reported Past Xmdodiz-Toozsu-Vrrqfl Hx Patient Social History Alcohol Use: Denies Use Recreational Drug Use: No (SMOKES 1/2 PPD) Drug of Choice: marijuana Smoking Status: Former Smoker Type Used: Electronic/Vapor Former Smoker, Quit: Jan 04, 2018 2nd Hand Smoke Exposure: No Recent Foreign Travel: No Contact w/Someone Who Travel: No Recent Infectious Disease Expo: No Recent Hopitalizations: No (2 vag deliveries and t&a 6 yrs ago) Physical Abuse: No Sexual Abuse: No Mistreated: No Seasonal Allergies Seasonal Allergies: No Past Medical History Surgeries: Yes Adenoidectomy, Gallbladder, Tonsillectomy, 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 Respiratory: No Cardiac: No Neurological: Yes Headaches /Migraines 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 0.6oz. 131.736314bu; 45.9 BMI Method:Stated General Appearance: Mild Distress HEENT: Normal ENT Inspection Neck: Normal Inspection Respiratory: Chest Non Tender, Lungs Clear, Normal Breath Sounds, No Accessory Muscle Use, No Respiratory Distress Cardiovascular: Regular Rate, Rhythm, No Edema, No Gallop, No JVD, No Murmur, Normal Peripheral Pulses Gastrointestinal: Normal Bowel Sounds, No Organomegaly, No Pulsatile Mass, Non Tender Extremity: Normal Capillary Refill, Normal Inspection, Normal Range of Motion, Non Tender, No Calf Tenderness, No Pedal Edema Neurologic/Psychiatric: Alert, Oriented x3, No Motor/Sensory Deficits, Normal Mood/Affect Skin: Normal Color, Warm/Dry Lymphatic: No Adenopathy Progress/Results/Core Measures Results/Orders Lab Results Laboratory Tests Test 07/09/18 11:15 07/09/18 11:45 Range/Units White Blood Count 8.5 4.3-11.0 10^3/uL Red Blood Count 3.72 L 4.35-5.85 10^6/uL Hemoglobin 10.4 L 11.5-16.0 G/DL Hematocrit 32 L 35-52 % Mean Corpuscular Volume 86 80-99 FL Mean Corpuscular Hemoglobin 28 25-34 PG Mean Corpuscular Hemoglobin Concent 33 32-36 G/DL Red Cell Distribution Width 15.3 H 10.0-14.5 % Platelet Count 198 130-400 10^3/uL Mean Platelet Volume 10.4 7.4-10.4 FL Neutrophils (%) (Auto) 77 H 42-75 % Lymphocytes (%) (Auto) 16 12-44 % Monocytes (%) (Auto) 6 0-12 % Eosinophils (%) (Auto) 1 0-10 % Basophils (%) (Auto) 0 0-10 % Neutrophils # (Auto) 6.6 1.8-7.8 X 10^3 Lymphocytes # (Auto) 1.4 1.0-4.0 X 10^3 Monocytes # (Auto) 0.5 0.0-1.0 X 10^3 Eosinophils # (Auto) 0.1 0.0-0.3 10^3/uL Basophils # (Auto) 0.0 0.0-0.1 10^3/uL Sodium Level 137 135-145 MMOL/L Potassium Level 4.1 3.6-5.0 MMOL/L Chloride Level 108 H 98-107 MMOL/L Carbon Dioxide Level 20 L 21-32 MMOL/L Anion Gap 9 5-14 MMOL/L Blood Urea Nitrogen 5 L 7-18 MG/DL Creatinine 0.62 0.60-1.30 MG/DL Estimat Glomerular Filtration Rate > 60 BUN/Creatinine Ratio 8 Glucose Level 97 70-105 MG/DL Calcium Level 9.1 8.5-10.1 MG/DL Corrected Calcium 9.5 8.5-10.1 MG/DL Total Bilirubin 0.4 0.1-1.0 MG/DL Aspartate Amino Transf (AST/SGOT) 12 5-34 U/L Alanine Aminotransferase (ALT/SGPT) 16 0-55 U/L Alkaline Phosphatase 82 40-136 U/L Total Protein 6.3 L 6.4-8.2 GM/DL Albumin 3.5 3.2-4.5 GM/DL Urine Color YELLOW Urine Clarity CLEAR Urine pH 7 5-9 Urine Specific [place] 1.010 L 1.016-1.022 Urine Protein NEGATIVE NEGATIVE Urine Glucose (UA) NEGATIVE NEGATIVE Urine Ketones NEGATIVE NEGATIVE Urine Nitrite NEGATIVE NEGATIVE Urine Bilirubin NEGATIVE NEGATIVE Urine Urobilinogen NORMAL NORMAL MG/DL Urine Leukocyte Esterase 1+ H NEGATIVE Urine RBC (Auto) NEGATIVE NEGATIVE Urine RBC RARE /HPF Urine WBC 2-5 /HPF Urine Squamous Epithelial Cells 2-5 /HPF Urine Renal Epithelial Cells NONE /HPF Urine Crystals NONE /LPF Urine Bacteria TRACE /HPF Urine Casts NONE /LPF Urine Mucus NEGATIVE /LPF Urine Culture Indicated NO My Orders Orders - GERARDO MILES MD Ekg Tracing (07/09/18 11:02) Cbc With Automated Diff (07/09/18 11:06) Comprehensive Metabolic Panel (07/09/18 11:06) Ua Culture If Indicated (07/09/18 11:06) Troponin I (07/09/18 12:12) Vital Signs/I&O 07/09/18 07/09/18 11:03 11:03 Temp 97.1 Pulse 80 Resp 20 B/P (MAP) 137/65 (89) Pulse Ox 100 O2 Delivery Room Air Room Air Blood Pressure Mean: 89 Departure Communication (Admissions) 1230: The findings were discussed with the patient. Given and age that was felt to be now value and performing a chest x-ray. Impression Primary Impression: chest pain, not myocardial Disposition: 01 HOME, SELF-CARE Condition: Stable/Unchanged Departure-Patient Inst. Decision time for Depature: 12:37 Referrals: KAUSHAL LICONA DO (PCP/Family) Primary Care Physician Patient Instructions: Chest Pain That Is Not Caused by the Heart (DC) Add. Discharge Instructions: All discharge instructions reviewed with patient and/or family. Voiced understanding. Try Tums or Rolaids. You may also use Prilosec. 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 GERARDO MILES MD Jul 09, 2018 12:37
[2018-07-09 12:57] VITALS: BP 115/60
== END 2018-07-09 12:58 | disposition home or self-care (01) ==
LOC: EDUNIT# 11:00 → ER 11:02
DX: O26.893 Other specified pregnancy related conditions, third trimester (principal); R07.81 Pleurodynia; O99.343 Other mental disorders complicating pregnancy, third trimester; F41.9 Anxiety disorder, unspecified; F32.9 Major depressive disorder, single episode, unspecified; O99.353 Diseases of the nervous system complicating pregnancy, third trimester; G43.909 Migraine, unspecified, not intractable, without status migrainosus; O99.323 Drug use complicating pregnancy, third trimester; F12.10 Cannabis abuse, uncomplicated; Z87.891 Personal history of nicotine dependence; Z87.19 Personal history of other diseases of the digestive system; Z88.0 Allergy status to penicillin; Z95.1 Presence of aortocoronary bypass graft; Z90.89 Acquired absence of other organs; Z3A.30 30 weeks gestation of pregnancy
CPT/HCPCS: 36415; 80053; 81000; 84484; 85025; 93005

== ENCOUNTER 2018-07-20 02:06 | Outpatient (CLI) | payer MEDICAID ==
[~2018-07-20] VITALS: Ht 167.6 cm; Wt 133.5 kg
[2018-07-20 02:20] VITALS: BP 134/79
[2018-07-20] MEDS ORDERED: D5 LR IV SOLUTION 1,000 ML IV ONE ×2 (02:46→04:08)
[2018-07-20] MEDS ORDERED: D5 LR IV SOLUTION 1,000 ML IV SCH ×2 (03:00→04:15)
[2018-07-20] MEDS ORDERED: BETAMETHASONE ACE/NA PHOS 6 MG/ML (CELESTONE SOLUSPAN) ONE ×2 (03:06→03:07)
[2018-07-20 03:10] LABS: BASOPHILS % (AUTO) 0 % (0-10); EOSINOPHILS # (AUTO) 0.1 10^3/uL (0.0-0.3); EOSINOPHILS % (AUTO) 1 % (0-10); HEMATOCRIT 31 % (35-52); HEMOGLOBIN 10.8 G/DL (11.5-16.0); LYMPHOCYTES # (AUTO) 1.9 X 10^3 (1.0-4.0); LYMPHOCYTES % (AUTO) 23 % (12-44); MEAN CORPUSCULAR HEMOGLOBIN 28 PG (25-34); MEAN CORPUSCULAR HGB CONC 35 G/DL (32-36); MEAN CORPUSCULAR VOLUME 82 FL (80-99); MEAN PLATELET VOLUME 10.3 FL (7.4-10.4); MONOCYTES # (AUTO) 0.6 X 10^3 (0.0-1.0); MONOCYTES % (AUTO) 7 % (0-12); NEUTROPHILS # (AUTO) 5.8 X 10^3 (1.8-7.8); NEUTROPHILS % (AUTO) 69 % (42-75); PLATELET COUNT 216 10^3/uL (130-400); RED BLOOD COUNT 3.81 10^6/uL (4.35-5.85); RED CELL DISTRIBUTION WIDTH 15.7 % (10.0-14.5); WHITE BLOOD COUNT 8.4 10^3/uL (4.3-11.0)
[2018-07-20 03:53] LABS: BILIRUBIN,URINE NEGATIVE (NEGATIVE); CLARITY,URINE CLEAR; COLOR,URINE YELLOW; GLUCOSE, URINE (UA) NEGATIVE (NEGATIVE); KETONES,URINE NEGATIVE (NEGATIVE); LEUKOCYTE ESTERASE ,URINE NEGATIVE (NEGATIVE); NITRITE,URINE NEGATIVE (NEGATIVE); PH,URINE 6.5 (5-9); PROTEIN,URINE NEGATIVE (NEGATIVE); UROBILINOGEN,URINE NORMAL (NORMAL)
[2018-07-20 04:02] LABS: BACTERIA,URINE TRACE /HPF; WBC,URINE RARE /HPF
[2018-07-20] MEDS ORDERED: SERT50TA2 PO (07:02)
[2018-07-20] MEDS ORDERED: FLU QUADRIvalent (5+ YOA) 2018-2019 (AFLURIA) 0.5 ML IM ONE (07:15)
[2018-07-20] MEDS ORDERED: BETAMETHASONE ACE/NA PHOS 6 MG/ML (CELESTONE SOLUSPAN) IM SCH (09:00)
[2018-07-21] MEDS ORDERED: BETAMETHASONE ACE/NA PHOS 6 MG/ML (CELESTONE SOLUSPAN) ONE (06:09)
--- NOTE | 2018-07-23 09:20 | Physician Query-Final Dx ---
GRACIELA RIDLEY 07/23/18 0920: Clinic Account Progress/Dx Physician Query: Please give a diagnosis and include the weeks of gestation if known thank you Date of Service Jul 20, 2018 at 02:06 JOE RIDER MD 07/24/18 0837: Clinic Account Progress/Dx DIAGNOSIS: Diagnosis FALSE LABOR AT 34 WEEKS GESTATION GRACIELA RIDLEY Jul 23, 2018 09:20 JOE RIDER MD Jul 24, 2018 08:37
== END 2018-07-20 07:10 | disposition home or self-care (01) ==
LOC: WSo 02:06 → LDRP 02:06 → WSo 07:10
PROVIDERS: ATTEND Obstetrics & Gynecology
DX: O47.03 False labor before 37 completed weeks of gestation, third trimester (principal); Z3A.34 34 weeks gestation of pregnancy
CPT/HCPCS: 36415; 81000; 85025; 96360; 96361; 96372; 99214

== ENCOUNTER 2018-07-21 06:20 | Outpatient (CLI) | payer MEDICAID ==
[~2018-07-21 06:20] MED LIST changes: +SERT50TA2 PO
[2018-07-21] MEDS ORDERED: BETAMETHASONE ACE/NA PHOS 6 MG/ML (CELESTONE SOLUSPAN) IM SCH (09:00)
--- NOTE | 2018-07-24 10:46 | Physician Query-Final Dx ---
GRACIELA RIDLEY 07/24/18 1046: Clinic Account Progress/Dx Physician Query: Please give a diagnosis and the weeks of gestation if known thank you Date of Service Jul 21, 2018 at 06:20 JOE RIDER MD 07/29/18 0802: Clinic Account Progress/Dx DIAGNOSIS: Diagnosis 30 WEEK IUP WITH PTL GRACIELA RIDLEY Jul 24, 2018 10:46 JOE RIDER MD Jul 29, 2018 08:02
== END 2018-07-21 06:32 | disposition home or self-care (01) ==
LOC: WSo 06:20 → LDRP 06:21 → WSo 06:32
PROVIDERS: ATTEND Obstetrics & Gynecology
DX: O60.03 Preterm labor without delivery, third trimester (principal); Z3A.30 30 weeks gestation of pregnancy
CPT/HCPCS: 96372

== ENCOUNTER 2018-07-22 09:24 | Outpatient (CLI) | payer MEDICAID ==
[~2018-07-22] VITALS: Ht 167.6 cm; Wt 133.1 kg
[2018-07-22 09:35] VITALS: BP 146/87
[2018-07-22] MEDS ORDERED: FLU QUADRIvalent (5+ YOA) 2018-2019 (AFLURIA) 0.5 ML IM ONE (10:00)
--- NOTE | 2018-07-27 10:50 | Physician Query-Final Dx ---
GRACIELA RIDLEY 07/27/18 1050: Clinic Account Progress/Dx Physician Query: Please give a diagnosis and the weeks of gestation if known thank you Date of Service Jul 22, 2018 at 09:24 KAUSHAL LICONA DO 07/27/18 2158: Clinic Account Progress/Dx DIAGNOSIS: Diagnosis 30 week IUP Vaginal discharge GRACIELA RIDLEY Jul 27, 2018 10:50 KAUSHAL LICONA DO Jul 27, 2018 21:58
== END 2018-07-22 10:40 | disposition home or self-care (01) ==
LOC: WSo 09:24 → LDRP 09:24 → WSo 10:40
PROVIDERS: ATTEND Obstetrics & Gynecology
DX: O99.89 Other specified diseases and conditions complicating pregnancy, childbirth and the puerperium (principal); N89.8 Other specified noninflammatory disorders of vagina; Z3A.30 30 weeks gestation of pregnancy; Z23 Encounter for immunization
CPT/HCPCS: 99213

== ENCOUNTER 2018-08-12 09:25 | Outpatient (CLI) | payer MEDICAID ==
[~2018-08-12] VITALS: Ht 170.2 cm; Wt 129.8 kg
[2018-08-12 09:57] VITALS: BP 122/61
[2018-08-12] MEDS ORDERED: FERR325T18 PO (10:04)
[2018-08-12] MEDS ORDERED: PREN1TAB79 PO (10:04)
[2018-08-12] MEDS ORDERED: RANI150T46 PO (10:04)
[2018-08-12] MEDS ORDERED: FLU QUADRIvalent (5+ YOA) 2018-2019 (AFLURIA) 0.5 ML IM ONE (13:30)
== END 2018-08-12 10:10 | disposition home or self-care (01) ==
LOC: WSo 09:25 → LDRP 09:26 → WSo 10:10
PROVIDERS: ATTEND Obstetrics & Gynecology
DX: O36.8130 Decreased fetal movements, third trimester, not applicable or unspecified (principal); Z3A.34 34 weeks gestation of pregnancy
CPT/HCPCS: 59025

== ENCOUNTER 2018-08-22 02:15 | Outpatient (CLI) | payer MEDICAID ==
[~2018-08-22] VITALS: Ht 170.2 cm; Wt 130.6 kg
[~2018-08-22 02:15] MED LIST changes: +FERR325T18 PO; +PREN1TAB79 PO; +RANI150T46 PO
[2018-08-22 02:38] LABS: BILIRUBIN,URINE NEGATIVE (NEGATIVE); CLARITY,URINE CLEAR; COLOR,URINE YELLOW; GLUCOSE, URINE (UA) NEGATIVE (NEGATIVE); KETONES,URINE 3+ (NEGATIVE); LEUKOCYTE ESTERASE ,URINE 1+ (NEGATIVE); NITRITE,URINE NEGATIVE (NEGATIVE); PH,URINE 5 (5-9); PROTEIN,URINE 2+ (NEGATIVE); UROBILINOGEN,URINE 1 MG/DL (NORMAL)
[2018-08-22] MEDS ORDERED: BETAMETHASONE ACE/NA PHOS 6 MG/ML (CELESTONE SOLUSPAN) IM SCH (02:45)
[2018-08-22] MEDS ORDERED: AMPICILLIN FOR IV USE 2,000 MG in NS (IVPB) 50 ML IV ONE (02:45)
[2018-08-22 02:46] LABS: BACTERIA,URINE TRACE /HPF; WBC,URINE RARE /HPF
[2018-08-22] MEDS: D5 LR IV SOLUTION 1,000 ML IV SCH ×2 (03:02→04:45)
[2018-08-22 03:05] LABS: BASOPHILS % (AUTO) 0 % (0-10); EOSINOPHILS # (AUTO) 0.1 10^3/uL (0.0-0.3); EOSINOPHILS % (AUTO) 1 % (0-10); HEMATOCRIT 32 % (35-52); HEMOGLOBIN 10.5 G/DL (11.5-16.0); LYMPHOCYTES # (AUTO) 1.8 X 10^3 (1.0-4.0); LYMPHOCYTES % (AUTO) 18 % (12-44); MEAN CORPUSCULAR HEMOGLOBIN 26 PG (25-34); MEAN CORPUSCULAR HGB CONC 33 G/DL (32-36); MEAN CORPUSCULAR VOLUME 80 FL (80-99); MEAN PLATELET VOLUME 10.6 FL (7.4-10.4); MONOCYTES # (AUTO) 0.7 X 10^3 (0.0-1.0); MONOCYTES % (AUTO) 7 % (0-12); NEUTROPHILS % (AUTO) 73 % (42-75); PLATELET COUNT 216 10^3/uL (130-400); RED BLOOD COUNT 4.05 10^6/uL (4.35-5.85); RED CELL DISTRIBUTION WIDTH 15.2 % (10.0-14.5); WHITE BLOOD COUNT 9.6 10^3/uL (4.3-11.0)
[2018-08-22 03:08] VITALS: BP 147/79
[2018-08-22 03:30] VITALS: BP 115/53
[2018-08-22 07:15] VITALS: BP 119/68
[2018-08-22] MEDS ORDERED: FLU QUADRIvalent (5+ YOA) 2018-2019 (AFLURIA) 0.5 ML IM ONE (07:30)
--- NOTE | 2018-08-22 08:10 | History & Physical ---
History and Physical Date Seen by Provider: Aug 22, 2018 Time Seen by Provider: 08:07 This patient is a 28-year-old white female patient of Dr. Calvillo. She presented with complaint of contractions and pain. She was found to be eddie every 2-4 minutes. Her cervix initially showed some cervical change however contractions lessened and she has not shown any further cervical change through the night. She is having occasional contractions now. She denies rupture membranes or bleeding. Her GBS culture was negative. Allergies are to a Zithromax Medications are vitamins Medical social and surgical histories are per the antepartum record HEENT exam is normal Neck is supple Abdomen is gravid/markedly obese Extremities show no clubbing cyanosis. There is no Homans sign. Pelvic exam is deferred. Patient has shown no cervical change on serial exams per the labor and delivery nurse. Laboratory Tests 08/22/18 02:50 Assessment and plan 36 week gestation with labor. She has shown no cervical change so we will allow discharge home with follow-up in clinic labor Allergies and Home Medications Allergies Coded Allergies: azithromycin (Unverified Adverse Reaction, Unknown, N/V, 04/04/18) Home Medications Ferrous Sulfate 325 Mg Tablet, 325 MG PO BID WITH MEALS, (Reported) Vit W-Ca,Fe,FA(<1 mg) 1 Each Tablet, 1 EACH PO DAILY, (Reported) Ranitidine HCl 150 Mg Tablet, 150 MG PO BID, (Reported) Sertraline HCl 50 Mg Tablet, 50 MG PO DAILY Prescribed by: TIM HOLLNAD on 07/20/18 0702 Patient Home Medication List Home Medication List Reviewed: JOE Guajardo MD Aug 22, 2018 8:10 am
--- NOTE | 2018-08-22 08:13 | Discharge Instructions ---
Discharge Instructions Patient Instructions Patient Instructions: as directed Return to The Hospital For: As directed Activity & Diet Discharge Diet: No Restrictions Activity as Tolerated: Yes Orders-Post D/C & Referrals Return to clinic with PCP as scheduled Return promptly for any sign symptoms or indications of labor JOE RIDER MD Aug 22, 2018 8:13 am
== END 2018-08-22 08:20 | disposition home or self-care (01) ==
LOC: WSo 02:15 → LDRP 02:16 → WSo 08:20
PROVIDERS: ATTEND Obstetrics & Gynecology
DX: O60.03 Preterm labor without delivery, third trimester (principal); Z3A.36 36 weeks gestation of pregnancy
CPT/HCPCS: 36415; 81000; 82570; 84156; 85025

== ENCOUNTER 2018-08-28 06:24 | Outpatient (CLI) | payer MEDICAID ==
[~2018-08-28] VITALS: Ht 170.2 cm; Wt 130.6 kg
[2018-08-28] MEDS ORDERED: ACET325T38 PO (06:48)
[2018-08-28] MEDS ORDERED: LANS15CA21 PO (06:48)
[2018-08-28 06:49] VITALS: BP 133/67
--- NOTE | 2018-08-28 07:48 | Physician Query-Final Dx ---
Clinic Account Progress/Dx Physician Query: Date of Service Aug 28, 2018 at 06:24 DIAGNOSIS: Diagnosis 36 week uterine irritability hemorrhoids LUKE KLINE DO Aug 28, 2018 07:48
[2018-08-28] MEDS ORDERED: DOCU-143 PO ×2 (23:37)
[2018-09-09] MEDS ORDERED: IBUP-844 PO (21:53)
[2018-09-09] MEDS ORDERED: ACHD5005 PO (21:53)
[2018-09-09] MEDS ORDERED: DOCU100C37 PO (21:53)
== END 2018-08-28 07:45 | disposition home or self-care (01) ==
LOC: WSo 06:24 → LDRP 06:32 → WSo 07:45
PROVIDERS: ATTEND Obstetrics & Gynecology
DX: K64.9 Unspecified hemorrhoids (principal); Z3A.36 36 weeks gestation of pregnancy
CPT/HCPCS: 99213

== ENCOUNTER 2018-08-28 22:48 | Outpatient (CLI) | payer MEDICAID ==
[~2018-08-28] VITALS: Ht 170.2 cm; Wt 130.6 kg
[~2018-08-28 22:48] MED LIST changes: +ACET325T38 PO; +LANS15CA21 PO
[2018-08-28 23:11] VITALS: BP 127/65
[2018-08-28] MEDS ORDERED: MILK OF MAGNESIA 400 MG/5 ML 30 ML UDC ONE (23:21)
[2018-08-28] MEDS ORDERED: BISACODYL 5 MG (DULCOLAX) TABLET PO ONE ×2 (23:21→23:30)
[2018-08-28] MEDS ORDERED: POLYETHYLENE GLYCOL 17 GM (MIRALAX) PACK ONE (23:21)
[2018-08-28] MEDS ORDERED: POLYETHYLENE GLYCOL 17 GM (MIRALAX) PACK PO ONE (23:30)
[2018-08-28] MEDS ORDERED: MILK OF MAGNESIA 400 MG/5 ML 30 ML UDC PO ONE (23:30)
[2018-08-28] MEDS ORDERED: DOCU-143 PO ×2 (23:37)
--- NOTE | 2018-08-30 09:28 | Physician Query-Final Dx ---
Clinic Account Progress/Dx Physician Query: Date of Service Aug 28, 2018 at 22:48 DIAGNOSIS: Diagnosis constipation 35 week hemorrhoid LUKE KLINE DO Aug 30, 2018 09:28
[2018-09-09] MEDS ORDERED: IBUP-844 PO (21:53)
[2018-09-09] MEDS ORDERED: DOCU100C37 PO (21:53)
[2018-09-09] MEDS ORDERED: ACHD5005 PO (21:53)
== END 2018-08-28 23:47 | disposition home or self-care (01) ==
LOC: WSo 22:48 → LDRP 22:50 → WSo 23:47
PROVIDERS: ATTEND Obstetrics & Gynecology
DX: O99.89 Other specified diseases and conditions complicating pregnancy, childbirth and the puerperium (principal); K59.00 Constipation, unspecified; K64.9 Unspecified hemorrhoids; Z3A.35 35 weeks gestation of pregnancy
CPT/HCPCS: 99212

== ENCOUNTER 2018-09-03 05:19 | Outpatient (CLI) | payer MEDICAID ==
[~2018-09-03] VITALS: Ht 170.2 cm; Wt 128.8 kg
[~2018-09-03 05:19] MED LIST changes: +DOCU-143 PO
[2018-09-03 05:40] VITALS: BP 118/57
[2018-09-03 06:06] LABS: BACTERIA,URINE TRACE /HPF; BILIRUBIN,URINE NEGATIVE (NEGATIVE); CLARITY,URINE CLEAR; COLOR,URINE YELLOW; GLUCOSE, URINE (UA) NEGATIVE (NEGATIVE); KETONES,URINE 3+ (NEGATIVE); LEUKOCYTE ESTERASE ,URINE 1+ (NEGATIVE); NITRITE,URINE NEGATIVE (NEGATIVE); PH,URINE 5 (5-9); PROTEIN,URINE 1+ (NEGATIVE); RBC,URINE RARE /HPF; UROBILINOGEN,URINE NORMAL (NORMAL)
[2018-09-03] MEDS ORDERED: FLU QUADRIvalent (5+ YOA) 2018-2019 (AFLURIA) 0.5 ML IM ONE (07:15)
[2018-09-09] MEDS ORDERED: ACHD5005 PO (21:53)
[2018-09-09] MEDS ORDERED: IBUP-844 PO (21:53)
[2018-09-09] MEDS ORDERED: DOCU100C37 PO (21:53)
== END 2018-09-03 08:35 | disposition home or self-care (01) ==
LOC: WSo 05:19 → LDRP 05:22 → WSo 08:35
PROVIDERS: ATTEND Obstetrics & Gynecology
DX: O47.03 False labor before 37 completed weeks of gestation, third trimester (principal); Z3A.36 36 weeks gestation of pregnancy
CPT/HCPCS: 81000; 99213

== ENCOUNTER 2018-09-09 06:38 | Inpatient (IN) | payer MEDICAID ==
[~2018-09-09] VITALS: Ht 170.2 cm; Wt 128.8 kg
[2018-09-09] VITALS (60 sets, daily range): BP systolic 71–177; BP diastolic 38–105
[2018-09-09] MEDS ORDERED: FLU QUADRIvalent (5+ YOA) 2018-2019 (AFLURIA) 0.5 ML IM ONE (07:30)
[2018-09-09] MEDS ORDERED: D5 LR IV SOLUTION 1,000 ML IV ONE (08:33)
[2018-09-09] MEDS: D5 LR IV SOLUTION 1,000 ML IV SCH ×2 (08:55→16:30)
[2018-09-09] MEDS ORDERED: MINERAL OIL CONCENTRATE 99.9% 15 ML UDC TOP SCH (09:15)
[2018-09-09 09:24] LABS: BILIRUBIN,URINE NEGATIVE (NEGATIVE); CLARITY,URINE SLIGHTLY CLOUDY; COLOR,URINE YELLOW; GLUCOSE, URINE (UA) NEGATIVE (NEGATIVE); KETONES,URINE 3+ (NEGATIVE); LEUKOCYTE ESTERASE ,URINE 2+ (NEGATIVE); NITRITE,URINE NEGATIVE (NEGATIVE); PH,URINE 5 (5-9); PROTEIN,URINE 1+ (NEGATIVE); UROBILINOGEN,URINE NORMAL (NORMAL)
[2018-09-09 09:24] LABS: BASOPHILS % (AUTO) 0 % (0-10); EOSINOPHILS # (AUTO) 0.1 10^3/uL (0.0-0.3); EOSINOPHILS % (AUTO) 1 % (0-10); HEMATOCRIT 33 % (35-52); HEMOGLOBIN 10.4 G/DL (11.5-16.0); LYMPHOCYTES # (AUTO) 1.9 X 10^3 (1.0-4.0); LYMPHOCYTES % (AUTO) 25 % (12-44); MEAN CORPUSCULAR HEMOGLOBIN 25 PG (25-34); MEAN CORPUSCULAR HGB CONC 32 G/DL (32-36); MEAN CORPUSCULAR VOLUME 77 FL (80-99); MEAN PLATELET VOLUME 11.6 FL (7.4-10.4); MONOCYTES # (AUTO) 0.4 X 10^3 (0.0-1.0); MONOCYTES % (AUTO) 6 % (0-12); NEUTROPHILS # (AUTO) 5.2 X 10^3 (1.8-7.8); NEUTROPHILS % (AUTO) 69 % (42-75); PLATELET COUNT 227 10^3/uL (130-400); RED BLOOD COUNT 4.25 10^6/uL (4.35-5.85); RED CELL DISTRIBUTION WIDTH 15.4 % (10.0-14.5); WHITE BLOOD COUNT 7.6 10^3/uL (4.3-11.0)
[2018-09-09 09:34] LABS: BACTERIA,URINE FEW /HPF; CALCIUM OXALATE CRYSTALS,UR FEW /LPF; WBC,URINE 25-50 /HPF; YEAST,URINE FEW /HPF
[2018-09-09] MEDS ORDERED: LACTATED RINGERS 1,000 ML IV ONE (09:46)
[2018-09-09] MEDS ORDERED: SUFENTA 0.6MCG/ML BUPIVA 0.125 100 ML ONE (09:57)
[2018-09-09] MEDS ORDERED: BUPIVACAINE 0.25% 30 ML (SENSORCAINE) VIAL ONE (10:01)
[2018-09-09] MEDS ORDERED: fentaNYL INJECTION 100 MCG/2 ML AMP ONE (10:01)
[2018-09-09] MEDS ORDERED: ONDANSETRON 4 MG/2 ML (SDV) Z0FRAN ONE ×2 (10:41→22:47)
[2018-09-09] MEDS: EPIDURAL (SUFENTA 0.6MCG/ML BUPIVA 0.125%) 100 ML BAG EPI PRN ×2 (10:41→17:46)
[2018-09-09] MEDS ORDERED: OXYTOCIN/NORMAL SALINE 500 ML IV SCH ×2 (11:21→21:50)
[2018-09-09] MEDS ORDERED: LACTATED RINGERS 1,000 ML IV SCH (11:53)
[2018-09-09] MEDS ORDERED: NALOXONE 0.4 MG/ML 1 ML (NARCAN) VIAL IV PRN ×2 (12:00)
[2018-09-09] MEDS ORDERED: ONDANSETRON 4 MG/2 ML (SDV) Z0FRAN IV PRN (12:00)
[2018-09-09] MEDS ORDERED: diphenhydrAMINE 50 MG/ML INJ (BENADRYL) IV PRN (12:00)
[2018-09-09] MEDS ORDERED: METOCLOPRAMIDE INJ 10 MG/2 ML (REGLAN) IV PRN (12:00)
[2018-09-09] MEDS ORDERED: CATHETER FLUSH 10 ML SYR IV SCH ×2 (14:00→22:00)
[2018-09-09] MEDS ORDERED: ceFAZolin 2 GM IV Premixed 50 ML ONE (21:27)
[2018-09-09] MEDS ORDERED: CITRIC ACID/SOB CIT (BICITRA) 30 ML UDC ONE (21:27)
[2018-09-09] MEDS ORDERED: FAMOTIDINE 20MG/2ML IV (PEPCID) ONE (21:36)
--- NOTE | 2018-09-09 21:45 | History & Physical-OB ---
OB - Chief Complaint & HPI Date/Time Date of Admission: Date of Admission: Sep 09, 2018 at 7:55 am Date seen by a Provider: Sep 09, 2018 Time Seen by a Provider: 09:30 Chief Complaint/History OB-Reason for Admission/Chief: Onset of Labor Hx : 3 Hx Para: 2 Expected Date of Delivery: Sep 20, 2018 Gestational Age in Weeks: 38 Gestational Age in Days: 3 Admission Nurse Assessment Rev: Yes History of Labs O pos Antibody neg RI RPR NR HBsAg NR HIV NR GC neg GBS neg Allergies and Home Medications Allergies Coded Allergies: azithromycin (Unverified Adverse Reaction, Unknown, N/V, 04/04/18) Home Medications Acetaminophen 325 Mg Tablet, 325 MG PO PRN, (Reported) Docusate Sodium 100 Mg Capsule, 100 MG PO BID, (Reported) Ferrous Sulfate 325 Mg Tablet, 325 MG PO BID WITH MEALS, (Reported) Lansoprazole 15 Mg Capsule.dr, 15 MG PO BID, (Reported) Vit W-Ca,Fe,FA(<1 mg) 1 Each Tablet, 1 EACH PO DAILY, (Reported) Ranitidine HCl 150 Mg Tablet, 150 MG PO BID, (Reported) Sertraline HCl 50 Mg Tablet, 50 MG PO DAILY Prescribed by: TIM HOLLAND on 07/20/18 0702 Patient Home Medication List Home Medication List Reviewed: Yes OB - History Hx of Present Care: Yes Ultrasounds: Normal mid trimester US Obstetrical Complications: None Medical Complications: None Obstetrical History Hx : 3 Hx Para: 2 Delivery History Hx Blood Disorders: No Adverse Rxn to Tranfusion: No Patient Past Medical History BMI > 40 Social History/Family History Recent Infectious Disease Expo: No Sexually Transmitted Disease: No Alcohol Use: Denies Use Recreational Drug Use: No 2nd Hand Smoke Exposure: No OB - Admission Exam Physical Exam Vitals: Vital Signs 09/09/18 09/09/18 19:30 20:15 Temp 98.5 Pulse 71 Resp 20 B/P (MAP) 116/64 (81) Pulse Ox 100 O2 Delivery Room Air HEENT: NCAT Heart: Rhythm Normal Lungs: Clear Abdomen: Gravid Extremities: Normal Reflexes: Normal Cervical Dilatation: 5cm Effacement: 75% Station: -3 Membranes: Intact Heart Rate: 130's Accelerations: Accelerations Present Decelerations: No Decelerations Short Term Variability: Present Retirement Variability: Average (6-25) Contractions on Admission: < 5 Minutes Apart Intensity: Firm Labs Laboratory Tests Test 09/09/18 08:30 09/09/18 08:56 Range/Units Urine Color YELLOW Urine Clarity SLIGHTLY CLOUDY Urine pH 5 5-9 Urine Specific [place] 1.025 H 1.016-1.022 Urine Protein 1+ H NEGATIVE Urine Glucose (UA) NEGATIVE NEGATIVE Urine Ketones 3+ H NEGATIVE Urine Nitrite NEGATIVE NEGATIVE Urine Bilirubin NEGATIVE NEGATIVE Urine Urobilinogen NORMAL NORMAL MG/DL Urine Leukocyte Esterase 2+ H NEGATIVE Urine RBC (Auto) NEGATIVE NEGATIVE Urine RBC NONE /HPF Urine WBC 25-50 H /HPF Urine Squamous Epithelial Cells 10-25 H /HPF Urine Crystals PRESENT H /LPF Urine Calcium Oxalate Crystals FEW H /LPF Urine Bacteria FEW H /HPF Urine Casts NONE /LPF Urine Mucus NEGATIVE /LPF Urine Yeast FEW H /HPF Urine Culture Indicated YES White Blood Count 7.6 4.3-11.0 10^3/uL Red Blood Count 4.25 L 4.35-5.85 10^6/uL Hemoglobin 10.4 L 11.5-16.0 G/DL Hematocrit 33 L 35-52 % Mean Corpuscular Volume 77 L 80-99 FL Mean Corpuscular Hemoglobin 25 25-34 PG Mean Corpuscular Hemoglobin Concent 32 32-36 G/DL Red Cell Distribution Width 15.4 H 10.0-14.5 % Platelet Count 227 130-400 10^3/uL Mean Platelet Volume 11.6 H 7.4-10.4 FL Neutrophils (%) (Auto) 69 42-75 % Lymphocytes (%) (Auto) 25 12-44 % Monocytes (%) (Auto) 6 0-12 % Eosinophils (%) (Auto) 1 0-10 % Basophils (%) (Auto) 0 0-10 % Neutrophils # (Auto) 5.2 1.8-7.8 X 10^3 Lymphocytes # (Auto) 1.9 1.0-4.0 X 10^3 Monocytes # (Auto) 0.4 0.0-1.0 X 10^3 Eosinophils # (Auto) 0.1 0.0-0.3 10^3/uL Basophils # (Auto) 0.0 0.0-0.1 10^3/uL OB - Assessment/Plan/Diagnosis Assessment Assessment: active labor Admission Dx 28 yo G3 P 2 @ 38.3 weeks Onset labor GBS neg Admission Status: Inpatient Order (span 2 midnights) Reason for Inpatient Admission: Term labor Plan Other Plan AROM and Pitocin started, epidural at request KAUSHAL LICONA DO Sep 09, 2018 9:45 pm
[2018-09-09] MEDS ORDERED: LIDOCAINE PF 2% 5 ML (XYLOCAINE) VIAL ONE (21:48)
--- NOTE | 2018-09-09 21:49 | Progress Note-Standard ---
Standard Progress Note Progress Notes/Assess & Plan Date Seen by a Provider: Sep 09, 2018 Time Seen by a Provider: 21:45 Progress/Assessment & Plan Patient presented in active labor this Am and was noted to be 5 cm at arrival eddie every 2-3 min. After admission epidural was obtained and AROM was performed at 1130 AM. Pitocin augmentation was started prior to AROM, and patient progressed comfortably with little to no pain or discomfort to 8-9 cm. There was noted to be no decent in the vertex from admission to dilatation of 8-9 cm. She was noted to be this at approx 1830, and made no change despite adequate contractions up until 2130 almost 3 hr, as well as no descent into the pelvis. Due to CPD, and failure to descend I discussed with the patient proceeding with vs continuing to wait. Risk of the procedure was discussed in detail, after everything was covered including risk and recovery timeframe, the patient is agreeable to proceed. Consent will be obtained and patient will be taken to OR once staff arrives. KAUSHAL LICONA DO Sep 09, 2018 9:49 pm
--- NOTE | 2018-09-09 21:52 | Discharge Inst-Women's Service ---
Discharge Inst-Women's Serv Depart Medication/Instructions New, Converted or Re-Newed RX: RX on Chart Final Diagnosis POD 2 PLTCS, Acute blood loss anemia Consults/Follow Up Additional Follow Up: Yes Orders/Referrals Dr. Lincoln in 7-10 days and in 6 weeks Activity Driving Instructions: No Driving for 1 Week NO SMOKING: NO SMOKING Nothing Inside Vagina: No Douching, No [employer], No Tampons Diet Discharge Diet: No Restrictions Symptoms to Report to : Bleeding Excessive, Pain Increased, Fever Over 101 Degrees F, Vaginal Bleeding Increase, Questions/Concerns For Any Problems or Questions: Contact Your Physician Skin/Wound Care Infection Signs and Symptoms: Increased Redness, Foul Odor of Wound, Increased Drainage, Skin Itchy or Has a Rash, Increased Swelling, Temperature Above 101 F Stitches/[place]/Dermabond: Dermabond, Care of Stitches Bathing Instructions: KAUSHAL Olivera DO Sep 09, 2018 9:52 pm
[2018-09-09] MEDS ORDERED: DOCU100C37 PO (21:53)
[2018-09-09] MEDS ORDERED: IBUP-844 PO (21:53)
[2018-09-09] MEDS ORDERED: ACHD5005 PO (21:53)
[2018-09-09] MEDS ORDERED: HYDROmorphone 2 MG/ML VIAL (DILAUDID) IV PRN (22:00)
[2018-09-09] MEDS ORDERED: ONDANSETRON 4 MG/2 ML (SDV) Z0FRAN IVP PRN (22:00)
[2018-09-09] MEDS ORDERED: KETOROLAC 30 MG/ML VIAL IVP SCH (22:00)
[2018-09-09] MEDS ORDERED: MEASLES,MUMPS,RUBELLA 1 EA INJ SC SCH (22:00)
[2018-09-09] MEDS ORDERED: TETANUS,DIPTH,PERTUSS P/F (BOOSTRIX) 0.5 ML VIAL IM SCH (22:00)
[2018-09-09] MEDS ORDERED: KETAMINE HCL 100 MG/ML 5 ML VIAL ONE (22:03)
[2018-09-09] MEDS ORDERED: BUPIVACAINE 0.5% 30 ML (SENSORCAINE) VIAL ONE (22:47)
[2018-09-09] MEDS ORDERED: KETOROLAC 30 MG/ML VIAL ONE (22:47)
[2018-09-09] MEDS ORDERED: OXYTOCIN/NORMAL SALINE 1,000 ML IV ONE (22:48)
[2018-09-10 00:45] VITALS: BP 124/59
[2018-09-10 01:48] VITALS: BP 142/74
[2018-09-10] MEDS: HYDROcodone/APAP 5 MG/325 MG (LORTAB) TAB PO PRN ×4 (01:49→20:02)
[2018-09-10] MEDS ORDERED: LACTATED RINGERS 1,000 ML IV PRN (01:50)
[2018-09-10] MEDS ORDERED: METOCLOPRAMIDE INJ 10 MG/2 ML (REGLAN) IV ONE (02:00)
[2018-09-10] MEDS ORDERED: CITRIC ACID/SOB CIT (BICITRA) 30 ML UDC PO ONE (02:00)
[2018-09-10] MEDS ORDERED: FAMOTIDINE 20MG/2ML IV (PEPCID) IV ONE (02:15)
--- NOTE | 2018-09-10 03:00 | OPERATIVE REPORT ---
DATE OF SERVICE: PREOPERATIVE DIAGNOSES: 1. A 28-year-old G3, P2 at 38 weeks gestation. 2. Cephalopelvic disproportion. 3. Failure to descend. POSTOPERATIVE DIAGNOSES: 1. A 28-year-old G3, P2 at 38 weeks gestation. 2. Cephalopelvic disproportion. 3. Failure to descend. PROCEDURE: Primary low transverse section. SURGEON: Edward Licona DO ANESTHESIA: Epidural, which was bolused. ESTIMATED BLOOD LOSS: 800 mL. URINE OUTPUT 500 mL clear at the end of the procedure. FLUIDS: 1500 mL lactated Ringer's solution. FINDINGS: A live female weighing 9 pounds 3 ounces, Apgars of 8 and 9. Grossly normal appearing uterus and bilateral fallopian tubes with the exception of some adhesions of the posterior cul-de-sac and the pouch of Mono as well as dense adhesions of the anterior abdominal wall. Evidence of previous abdominal surgery. SPECIMENS SENT WAS: Placenta. INDICATIONS FOR PROCEDURE: Please see my preoperative note for complete details pertaining to the indications for procedure and proceeded with section. The risk and the consent was reviewed with the patient in the preoperative area. After that was obtained, the patient was taken to the operating room. OPERATIVE REPORT IN DETAIL: Once in the operating room, epidural analgesia was bolused and found to be adequate, placed in supine position with a leftward tilt, prepped and draped in normal sterile fashion. A Pfannenstiel skin incision was made through a previously existing scar using knife and carried down the underlying fascia using Bovie cautery after a timeout was performed and anesthesia was tested. I then extended the fascial incision using Bovie cautery laterally, which then I am able to grasp with James clamps, tented upward and dissected off the underlying rectus muscles. The inferior aspect of the fascial incision was grasped with James clamps, tented upward and dissected off the underlying rectus muscles. The rectus muscle was then dissected down the midline using Metzenbaum scissors, some fine sharp dissection and blunt traction was used to access the peritoneum as this is densely scarred. Once peritoneal access was obtained I am able to take down the adhesions in a methodical careful manner to avoid the bladder. Once I have an adequate peritoneal access I placed an Isaias ring retractor which offered excellent lateral sidewall retraction. I made a low transverse incision to the lower uterine segment with a knife and bluntly dissect the lower uterine segment. Vesicouterine peritoneum creating a bladder flap and then proceeded with myotomy until membranes were visualized, at which point I extended the uterine incision laterally and superiorly with bandage scissors. The inferior margin of the placenta was encountered in this process. The infant was found in the vertex presentation. Amniotomy had already been performed in the labor process. I placed my hand beneath the infant's head, elevated up to the incision. With gentle fundal pressure, the 's head was elevated up to the incision where the nares and oropharynx were then bulb suctioned. Anterior and posterior shoulders were delivered. The was then brought to the operative field where the cord was doubly clamped and cut, and the infant was handed off to waiting nurses in attendance. Cord blood was collected. Three-vessel cord with intact placenta was delivered spontaneously thereafter. IV Pitocin was initiated to facilitate uterine contraction. Uterine fundus became firmer by manual massage. The uterus was then exteriorized and cleared of all endometrial clots and debris. I then closed the uterine incision using 0 Vicryl suture in a running locked fashion. Second layer of imbricating 0 Monocryl was placed. Excellent hemostasis was noted after doing this; however, there were a few areas that are oozing on the uterine incision, which were made hemostatic using 3-0 ligation sutures in a [id number] fashion. Once this was done, I placed the uterus back in the pelvis copiously irrigated the pelvis with normal saline. There was no active bleeding noted from any of my dissection planes. I then placed Interceed antiadhesive over my low transverse incision and proceeded with closing the peritoneum and the rectus muscles in one layer as they were densely adhesed. I do this in an interrupted fashion using 3-0 Vicryl suture. The fascia was reapproximated using 0 Vicryl suture in a running fashion. Subcutaneous tissue was reapproximated with 3-0 plain interrupted subcutaneous stitch and skin reapproximated using 4-0 Monocryl running subcuticular. Dermabond was applied to the incision and sterile dressing with adhesive white tape. The patient tolerated the procedure well and sent to recovery area in stable condition. Lap and sponge counts were correct at the end of the procedure. Instrument count was correct as well. Two grams of Ancef given preoperatively for infection prophylaxis. Job ID: [id number] DocumentID: [id number] Dictated Date: 09/09/2018 23:07:41 Flight Deck Officer Date: 09/10/2018 02:59:26 Dictated By: EDWARD LICONA DO
[2018-09-10 05:39] VITALS: BP 148/93
[2018-09-10 06:26] LABS: BASOPHILS % (AUTO) 0 % (0-10); EOSINOPHILS % (AUTO) 0 % (0-10); HEMATOCRIT 32 % (35-52); HEMOGLOBIN 10.2 G/DL (11.5-16.0); LYMPHOCYTES # (AUTO) 1.8 X 10^3 (1.0-4.0); LYMPHOCYTES % (AUTO) 16 % (12-44); MEAN CORPUSCULAR HEMOGLOBIN 25 PG (25-34); MEAN CORPUSCULAR HGB CONC 32 G/DL (32-36); MEAN CORPUSCULAR VOLUME 77 FL (80-99); MEAN PLATELET VOLUME 11.7 FL (7.4-10.4); MONOCYTES # (AUTO) 0.6 X 10^3 (0.0-1.0); MONOCYTES % (AUTO) 5 % (0-12); NEUTROPHILS # (AUTO) 9.1 X 10^3 (1.8-7.8); NEUTROPHILS % (AUTO) 79 % (42-75); PLATELET COUNT 239 10^3/uL (130-400); RED CELL DISTRIBUTION WIDTH 15.8 % (10.0-14.5); WHITE BLOOD COUNT 11.6 10^3/uL (4.3-11.0)
[2018-09-10 09:05] VITALS: BP 134/92
[2018-09-10] MEDS: DOCUSATE SODIUM 100 MG (COLACE) CAP PO SCH (09:05)
--- NOTE | 2018-09-10 10:07 | Anesthesia-Regional Post-Op ---
Regional Patient Condition Mental Status: Alert, Oriented x3 Circulation: Same as Pre-Op Headache: Absent Sensation: Full Recovery Motor Block: Absent Post Op Complications Complications None Follow Up Care/Instructions Patient Instructions None needed. Anesthesia/Patient Condition Patient is doing well, no complaints, stable vital signs, no apparent adverse anesthesia problems. No complications reported per nursing. DESTINEY KITCHEN CRNA Sep 10, 2018 10:07
--- NOTE | 2018-09-10 10:08 | Postpartum Progress Note ---
Note Note Day # 1 Subjective: Patient is without complaints. Ambulating, voiding. Tolerating a regular diet without nausea or vomiting. Normal lochia. Pain is well controlled with oral pain medications. Objective: Vital Sign - Last 24 Hours 09/09/18 09/09/18 09/09/18 09/09/18 10:15 10:18 10:21 10:23 Pulse 90 89 90 95 Resp 18 18 18 18 B/P (MAP) 143/94 (110) 143/105 (118) 156/65 (95) 152/70 (97) Pulse Ox 100 100 100 98 O2 Delivery Room Air Room Air Room Air Room Air 09/09/18 09/09/18 09/09/18 09/09/18 10:26 10:30 10:33 10:36 Pulse 95 89 89 100 Resp 18 18 18 18 B/P (MAP) 142/62 (88) 145/67 (93) 143/69 (93) 164/90 (114) Pulse Ox 99 99 99 99 O2 Delivery Room Air Room Air Room Air Room Air 09/09/18 09/09/18 09/09/18 09/09/18 10:40 10:41 10:43 10:45 Pulse 131 98 70 89 Resp 18 18 18 18 B/P (MAP) 177/78 (111) 119/55 (76) 73/38 (50) 145/67 (93) Pulse Ox 99 99 O2 Delivery Room Air Room Air Room Air Room Air 09/09/18 09/09/18 09/09/18 09/09/18 10:46 10:47 11:00 11:15 Pulse 67 69 90 94 Resp 18 18 18 18 B/P (MAP) 71/38 (49) 122/58 (79) 113/87 (96) 130/72 (91) Pulse Ox 99 99 99 O2 Delivery Room Air Room Air Room Air Room Air 09/09/18 09/09/18 09/09/18 09/09/18 11:30 11:45 12:00 12:15 Temp 96.7 Pulse 94 92 76 90 Resp 18 18 18 18 B/P (MAP) 110/62 (78) 119/72 (88) 129/78 (95) 120/73 (89) Pulse Ox 100 98 100 100 O2 Delivery Room Air Room Air Room Air Room Air 09/09/18 09/09/18 09/09/18 12/5/18 12:30 12:45 13:00 13:15 Pulse 92 74 95 102 Resp 18 18 18 18 B/P (MAP) 120/67 (84) 136/67 (90) 112/71 (85) 124/74 (91) Pulse Ox 100 99 100 100 O2 Delivery Room Air Room Air Room Air Room Air 09/09/18 09/09/18 09/09/18 09/09/18 13:30 13:45 14:00 14:15 Pulse 76 81 77 83 Resp 18 18 18 18 B/P (MAP) 141/76 (97) 152/88 (109) 144/83 (103) 139/83 (101) Pulse Ox 100 100 100 100 O2 Delivery Room Air Room Air Room Air Room Air 09/09/18 09/09/18 09/09/18 09/09/18 14:30 14:45 15:00 15:15 Pulse 78 86 88 72 Resp 18 18 18 18 B/P (MAP) 128/79 (95) 128/88 (101) 130/85 (100) 140/85 (103) Pulse Ox 99 97 98 98 O2 Delivery Room Air Room Air Room Air Room Air 09/09/18 09/09/18 09/09/18 09/09/18 15:30 15:45 16:00 16:15 Temp 97.7 Pulse 96 85 75 74 Resp 20 20 20 20 B/P (MAP) 106/65 (79) 131/77 (95) 121/66 (84) 133/89 (104) Pulse Ox 98 98 98 99 O2 Delivery Room Air Room Air Room Air Room Air 09/09/18 09/09/18 09/09/18 09/09/18 16:30 16:45 17:00 17:15 Pulse 82 82 72 75 Resp 20 20 20 20 B/P (MAP) 134/75 (94) 141/82 (101) 137/77 (97) 156/87 (110) Pulse Ox 99 100 100 99 O2 Delivery Room Air Room Air Room Air Room Air 09/09/18 09/09/18 09/09/18 09/09/18 17:30 17:45 18:00 18:15 Pulse 75 82 77 85 Resp 20 20 20 20 B/P (MAP) 156/87 (110) 135/81 (99) 148/85 (106) 110/71 (84) Pulse Ox 99 100 97 100 O2 Delivery Room Air Room Air Room Air Room Air 09/09/18 09/09/18 09/09/18 09/09/18 18:30 18:45 19:00 19:15 Temp 97.3 Pulse 90 82 85 77 Resp 20 20 20 20 B/P (MAP) 134/77 (96) 131/77 (95) 125/73 (90) 126/78 (94) Pulse Ox 100 100 99 99 O2 Delivery Room Air Room Air Room Air Room Air 09/09/18 09/09/18 09/09/18 09/09/18 19:30 19:45 20:00 20:15 Temp 98.5 Pulse 87 77 80 71 Resp 20 20 20 20 B/P (MAP) 122/76 (91) 124/85 (98) 128/81 (97) 116/64 (81) Pulse Ox 99 100 99 100 O2 Delivery Room Air Room Air Room Air Room Air 09/09/18 09/09/18 09/09/18 09/09/18 20:30 20:45 21:00 21:15 Temp 96.9 Pulse 78 79 75 70 Resp 20 20 20 20 B/P (MAP) 127/74 (91) 131/81 (98) 127/75 (92) 125/73 (90) Pulse Ox 100 100 100 99 O2 Delivery Room Air Room Air Room Air Room Air 09/09/18 09/09/18 09/09/18 09/10/18 21:30 22:00 22:10 00:45 Temp 98.2 Pulse 79 79 82 85 Resp 20 20 20 18 B/P (MAP) 131/79 (96) 140/80 (100) 129/73 (91) 124/59 (80) Pulse Ox 100 99 100 96 O2 Delivery Room Air Room Air Room Air Room Air 09/10/18 09/10/18 09/10/18 01:48 05:39 09:05 Temp 98.3 98.1 97.2 Pulse 84 79 81 Resp 18 18 20 B/P (MAP) 142/74 (96) 148/93 (111) 134/92 (106) Pulse Ox 97 99 O2 Delivery Room Air Room Air Room Air Intake and Output 09/09/18 09/09/18 09/10/18 15:00 23:00 07:00 Intake Total 50 ml 640 ml Output Total 700 ml Balance 50 ml -60 ml Physical Exam: General - Alert and oriented, no apparent distress Abdomen - Soft, appropriately tender to palpation, non-distended, fundus firm at umbilicus Extremities - no edema, negative Erica's bilaterally Incision- c/d/i Assessment: POD 1 PLTCS Acute blood loss anemia- superimposed on anemia of Plan: Routine care. Encourage breast feeding. Encourage ambulation. Ferrous sulfate supplementation. Plan for discharge tomorrow Vitals - Labs Vital Signs - I&O Vital Signs Date Time Temp Pulse Resp B/P (MAP) Pulse Ox O2 Delivery O2 Flow Rate FiO2 09/10/18 09:05 97.2 81 20 134/92 (106) Room Air 09/10/18 05:39 98.1 79 18 148/93 (111) 99 Room Air 09/10/18 01:48 98.3 84 18 142/74 (96) 97 Room Air 09/10/18 00:45 98.2 85 18 124/59 (80) 96 Room Air 09/09/18 22:10 82 20 129/73 (91) 100 Room Air 09/09/18 22:00 79 20 140/80 (100) 99 Room Air 09/09/18 21:30 79 20 131/79 (96) 100 Room Air 09/09/18 21:15 96.9 70 20 125/73 (90) 99 Room Air 09/09/18 21:00 75 20 127/75 (92) 100 Room Air 09/09/18 20:45 79 20 131/81 (98) 100 Room Air 09/09/18 20:30 78 20 127/74 (91) 100 Room Air 09/09/18 20:15 71 20 116/64 (81) 100 Room Air 09/09/18 20:00 80 20 128/81 (97) 99 Room Air 09/09/18 19:45 77 20 124/85 (98) 100 Room Air 09/09/18 19:30 98.5 87 20 122/76 (91) 99 Room Air 09/09/18 19:15 77 20 126/78 (94) 99 Room Air 09/09/18 19:00 85 20 125/73 (90) 99 Room Air 09/09/18 18:45 97.3 82 20 131/77 (95) 100 Room Air 09/09/18 18:30 90 20 134/77 (96) 100 Room Air 09/09/18 18:15 85 20 110/71 (84) 100 Room Air 09/09/18 18:00 77 20 148/85 (106) 97 Room Air 09/09/18 17:45 82 20 135/81 (99) 100 Room Air 09/09/18 17:30 75 20 156/87 (110) 99 Room Air 09/09/18 17:15 75 20 156/87 (110) 99 Room Air 09/09/18 17:00 72 20 137/77 (97) 100 Room Air 09/09/18 16:45 82 20 141/82 (101) 100 Room Air 09/09/18 16:30 82 20 134/75 (94) 99 Room Air 09/09/18 16:15 74 20 133/89 (104) 99 Room Air 09/09/18 16:00 97.7 75 20 121/66 (84) 98 Room Air 09/09/18 15:45 85 20 131/77 (95) 98 Room Air 09/09/18 15:30 96 20 106/65 (79) 98 Room Air 09/09/18 15:15 72 18 140/85 (103) 98 Room Air 09/09/18 15:00 88 18 130/85 (100) 98 Room Air 09/09/18 14:45 86 18 128/88 (101) 97 Room Air 09/09/18 14:30 78 18 128/79 (95) 99 Room Air 09/09/18 14:15 83 18 139/83 (101) 100 Room Air 09/09/18 14:00 77 18 144/83 (103) 100 Room Air 09/09/18 13:45 81 18 152/88 (109) 100 Room Air 09/09/18 13:30 76 18 141/76 (97) 100 Room Air 09/09/18 13:15 102 18 124/74 (91) 100 Room Air 09/09/18 13:00 95 18 112/71 (85) 100 Room Air 09/09/18 12:45 74 18 136/67 (90) 99 Room Air 09/09/18 12:30 92 18 120/67 (84) 100 Room Air 09/09/18 12:15 90 18 120/73 (89) 100 Room Air 09/09/18 12:00 96.7 76 18 129/78 (95) 100 Room Air 09/09/18 11:45 92 18 119/72 (88) 98 Room Air 09/09/18 11:30 94 18 110/62 (78) 100 Room Air 09/09/18 11:15 94 18 130/72 (91) 99 Room Air 09/09/18 11:00 90 18 113/87 (96) 99 Room Air 09/09/18 10:47 69 18 122/58 (79) 99 Room Air 09/09/18 10:46 67 18 71/38 (49) Room Air 09/09/18 10:45 89 18 145/67 (93) 99 Room Air 09/09/18 10:43 70 18 73/38 (50) Room Air 09/09/18 10:41 98 18 119/55 (76) Room Air 09/09/18 10:40 131 18 177/78 (111) 99 Room Air 09/09/18 10:36 100 18 164/90 (114) 99 Room Air 09/09/18 10:33 89 18 143/69 (93) 99 Room Air 09/09/18 10:30 89 18 145/67 (93) 99 Room Air 09/09/18 10:26 95 18 142/62 (88) 99 Room Air 09/09/18 10:23 95 18 152/70 (97) 98 Room Air 09/09/18 10:21 90 18 156/65 (95) 100 Room Air 09/09/18 10:18 89 18 143/105 (118) 100 Room Air 09/09/18 10:15 90 18 143/94 (110) 100 Room Air I & O 09/10/18 07:00 Intake Total 690 ml Output Total 700 ml Balance -10 ml Labs Laboratory Tests 09/10/18 05:49: White Blood Count 11.6H, Red Blood Count 4.10L, Hemoglobin 10.2L, Hematocrit 32L , Mean Corpuscular Volume 77L, Mean Corpuscular Hemoglobin 25, Mean Corpuscular Hemoglobin Concent 32, Red Cell Distribution Width 15.8H, Platelet Count 239, Mean Platelet Volume 11.7H, Neutrophils (%) (Auto) 79H, Lymphocytes (%) (Auto) 16, Monocytes (%) (Auto) 5, Eosinophils (%) (Auto) 0, Basophils (%) (Auto) 0, Neutrophils # (Auto) 9.1H, Lymphocytes # (Auto) 1.8, Monocytes # (Auto) 0.6, Eosinophils # (Auto) 0.0, Basophils # (Auto) 0.0 KAUSHAL LICONA DO Sep 10, 2018 10:08
[2018-09-10 13:00] VITALS: BP 126/82
[2018-09-10] MEDS: IBUPROFEN 600 MG (MOTRIN) TAB PO SCH ×2 (13:09→17:59)
[2018-09-10 17:55] VITALS: BP 132/80
[2018-09-11 00:14] VITALS: BP 123/73
[2018-09-11] MEDS: IBUPROFEN 600 MG (MOTRIN) TAB PO SCH ×2 (00:14→05:22)
[2018-09-11] MEDS: HYDROcodone/APAP 5 MG/325 MG (LORTAB) TAB PO PRN ×2 (01:57→10:42)
[2018-09-11 05:22] VITALS: BP 126/80
--- NOTE | 2018-09-11 08:21 | Postpartum Progress Note ---
Note Note Day # 2 Subjective: Patient is without complaints. Ambulating, voiding. Tolerating a regular diet without nausea or vomiting. Normal lochia. Pain is well controlled with oral pain medications. Objective: Vital Sign - Last 24 Hours 09/10/18 09/10/18 09/10/18 09/11/18 09:05 13:00 17:55 00:14 Temp 97.2 97.6 97.8 98.5 Pulse 81 83 80 86 Resp 20 20 20 20 B/P (MAP) 134/92 (106) 126/82 (97) 132/80 (97) 123/73 (90) Pulse Ox 98 O2 Delivery Room Air Room Air Room Air Room Air 09/11/18 05:22 Temp 98.2 Pulse 84 Resp 20 B/P (MAP) 126/80 (95) Pulse Ox 98 O2 Delivery Room Air Physical Exam: General - Alert and oriented, no apparent distress Abdomen - Soft, appropriately tender to palpation, non-distended, fundus firm at umbilicus Extremities - no edema, negative Erica's bilaterally Incision- c/d/i Assessment: POD 2 PLTCS Acute blood loss anemia Plan: Routine care. Encourage breast feeding. Encourage ambulation. Ferrous sulfate supplementation. Plan for discharge today Vitals - Labs Vital Signs - I&O Vital Signs Date Time Temp Pulse Resp B/P (MAP) Pulse Ox O2 Delivery O2 Flow Rate FiO2 09/11/18 05:22 98.2 84 20 126/80 (95) 98 Room Air 09/11/18 00:14 98.5 86 20 123/73 (90) 98 Room Air 09/10/18 17:55 97.8 80 20 132/80 (97) Room Air 09/10/18 13:00 97.6 83 20 126/82 (97) Room Air 09/10/18 09:05 97.2 81 20 134/92 (106) Room Air Labs Microbiology 09/09/18 Urine Culture - Final, Complete See Report KAUSHAL LICONA DO Sep 11, 2018 08:21
[2018-09-11 09:00] VITALS: BP 133/63
[2018-09-11] MEDS: DOCUSATE SODIUM 100 MG (COLACE) CAP PO SCH (09:08)
== END 2018-09-11 12:50 | disposition home or self-care (01) | DRG 787 ==
LOC: WSo 06:38 → LDRP 06:39 → WSo 07:55 → LDRP 09-10 02:18
PROVIDERS: ADMIT Obstetrics & Gynecology; ATTEND Obstetrics & Gynecology
PROC: 10D00Z1 Extraction of Products of Conception, Low, Open Approach (ICD-10-PCS; principal; 2018-09-09 22:16)
DX: O99.213 Obesity complicating pregnancy, third trimester (principal); E66.01 Morbid (severe) obesity due to excess calories; O99.03 Anemia complicating the puerperium; D62 Acute posthemorrhagic anemia; O33.9 Maternal care for disproportion, unspecified; O99.613 Diseases of the digestive system complicating pregnancy, third trimester; K21.9 Gastro-esophageal reflux disease without esophagitis; Z3A.38 38 weeks gestation of pregnancy; Z37.0 Single live birth
CPT/HCPCS: 36415; 81000; 85025; 86850; 86900; 86901; 87088; 88307; 90715; 99212

== ENCOUNTER 2018-09-14 19:59 | Day surgery (SDC) | payer MEDICAID ==
[~2018-09-14] VITALS: Ht 170.2 cm; Wt 125.5 kg
[~2018-09-14 19:59] MED LIST changes: +ACHD5005 PO; +DOCU100C37 PO; +IBUP-844 PO
[2018-09-14] MEDS ORDERED: morphine INJ 10 MG/ML 1ML (SYR OR VIAL) ONE (21:12)
[2018-09-14] MEDS ORDERED: morphine INJ 10 MG/ML 1ML (SYR OR VIAL) IVP ONE ×2 (21:15→21:45)
[2018-09-14] MEDS ORDERED: LIDOCAINE/EPI 2% 1:100,00 (XYLOCAINE) 20 ML VIAL ONE (21:35)
--- NOTE | 2018-09-14 21:43 | ED General ---
General Chief Complaint: Rect Problems Stated Complaint: RECTAL PAIN Nursing Triage Note: pt states that yesterday she began to experience rectal pain and a presenting hemrrhoid, states she had similar issues after giving to her second child naturally, but states that she gave to her third child via this and has not experienced hemrrhoids to this severity in her life. Nursing Sepsis Screen: No Definite Risk Source of Information: Patient History of Present Illness Date Seen by Provider: Sep 14, 2018 Time Seen by Provider: 20:50 Initial Comments C/O "BAD HEMORRHOIDS" SINCE LAST PM HAS HISTORY OF SAME, 7 YEARS AGO, AND HAD SURGICAL REMOVAL BY DR VAUGHAN AT THAT TIME--STATES THIS IS MUCH WORSE STATES SHE HAS NOT HAD PROBLEMS WITH HEMORRHOIDS SINCE THEN STATES 3-4 WEEKS AGO SHE WAS CONSTIPATED, BUT HAS BEEN TAKING STOOL SOFTENERS SINCE THEN AND HAS NOT BEEN CONSTIPATED SINCE. STATES SHE HAD A NORMAL SOFT BM TODAY, NO RECTAL BLEEDING STATES SHE DELIVERED VIA LAST Friday09/09/18, FOR FAILURE TO PROGRESS, BY DR. LICONA HAS NOT ATTEMPTED TO CONTACT HIM FOR THIS PROBLEM IS HAVING A SMALL AMOUNT OF VAGINAL BLEEDING/LOCHIA NO ABDOMINAL PAIN NO FEVER NO NAUSEA/VOMITING NO PROBLEMS WITH INCISION NO RELIEF WITH TUCKS, ICE AND SITZ BATHS HAS NOT TAKEN ANYTHING FOR PAIN PT IS TRYING TO BREAST FEED / PUMPING BREAST MILK, BUT IS ALSO SUPPLEMENTING WITH FORMULA Allergies and Home Medications Allergies Coded Allergies: azithromycin (Unverified Adverse Reaction, Unknown, N/V, 04/04/18) Home Medications Acetaminophen 325 Mg Tablet, 325 MG PO PRN, (Reported) Docusate Sodium 100 Mg Capsule, 100 MG PO BID PRN for CONSTIPATION-1ST LINE Prescribed by: KAUSHAL LICONA on 09/09/182152 Ferrous Sulfate 325 Mg Tablet, 325 MG PO BID WITH MEALS, (Reported) Hydrocodone Bit/Acetaminophen 1 Tab Tab, 1 TAB PO Q4H PRN for PAIN-MODERATE Prescribed by: KAUSHAL LICONA on 09/09/182152 Ibuprofen 600 Mg Tablet, 600 MG PO Q6H Prescribed by: KAUSHAL LICONA on 09/09/182152 Lansoprazole 15 Mg Capsule.dr, 15 MG PO BID, (Reported) Vit W-Ca,Fe,FA(<1 mg) 1 Each Tablet, 1 EACH PO DAILY, (Reported) Ranitidine HCl 150 Mg Tablet, 150 MG PO BID, (Reported) Sertraline HCl 50 Mg Tablet, 50 MG PO DAILY Prescribed by: TIM HOLLAND on 07/20/18 0702 Patient Home Medication List Home Medication List Reviewed: Yes Review of Systems Review of Systems Constitutional: no symptoms reported Respiratory: no symptoms reported Cardiovascular: no symptoms reported Gastrointestinal: other (PER HPI) Musculoskeletal: no symptoms reported Skin: no symptoms reported Psychiatric/Neurological: No Symptoms Reported Past Nogfabh-Keljsz-Vjnugs Hx Patient Social History Alcohol Use: Denies Use Recreational Drug Use: No Drug of Choice: marijuana Smoking Status: Former Smoker Type Used: Electronic/Vapor Former Smoker, Quit: Jan 04, 2018 2nd Hand Smoke Exposure: No Recent Foreign Travel: No Contact w/Someone Who Travel: No Recent Infectious Disease Expo: No Recent Hopitalizations: No (2 vag deliveries and t&a 6 yrs ago) Physical Abuse: No Sexual Abuse: No Mistreated: No Fear: No Immunizations Up To Date Tetanus Booster (TDap): Unknown Seasonal Allergies Seasonal Allergies: No Past Medical History Surgeries: Yes ( X 1; HEMORRHOIDECTOMY) Adenoidectomy, Section, Gallbladder, Rectal, Tonsillectomy, 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 Respiratory: No Cardiac: No Neurological: Yes Headaches /Migraines : No Last Menstrual Period: Dec 14, 2016 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 No Pertinent Family Hx Physical Exam Vital Signs Vital Signs - First Documented 09/14/18 20:11 Temp 98.3 Pulse 73 Resp 22 B/P (MAP) 140/78 (98) Pulse Ox 99 O2 Delivery Room Air Capillary Refill : Less Than 3 Seconds Height, Weight, BMI Height: 5'7.00" Weight: 270lbs. 0.0oz. 122.467300zy; 44.5 BMI Method:Stated General Appearance: Obese, Other (CRYING UNCONTROLLABLY) Rectal: Hemorrhoids (MULTIPLE VERY LARGE, MARKEDLY TENDER, INFLAMED, "BOGGY" EXTERNAL HEMORRHOIDS. NO BLEEDING) Extremity: Pedal Edema (1-2+ EDEMA BILATERALLY) Neurologic/Psychiatric: Alert, Oriented x3, No Motor/Sensory Deficits Skin: Normal Color, Warm/Dry Progress/Results/Core Measures Suspected Sepsis Recent Fever Within 48 Hours: No Infection Criteria Present: None New/Unexplained Altered Menta: No Sepsis Screen: No Definite Risk SIRS Temperature:98.3 Pulse: 73 Respiratory Rate: 22 Blood Pressure 140 /78 Mean: 98 Results/Orders My Orders Orders - WESTON MONSON DO Morphine Injection (Morphine Injection (09/14/18 21:12) Saline Lock/Iv-Start (09/14/18 21:21) Morphine Injection (Morphine Injection (09/15/18 00:09) Medications Given in ED Current Medications Medications Dose Ordered Sig/Maru Route Start Time Stop Time Status Last Admin Dose Admin Lidocaine/ Epinephrine 20 ml STK-MED ONCE .ROUTE 09/14/18 21:35 09/14/18 21:37 DC 09/14/18 21:40 20 ML Morphine Sulfate 2 mg ONCE ONCE IVP 09/14/18 21:45 09/14/18 21:46 DC 09/14/18 21:47 2 MG Morphine Sulfate 4 mg ONCE ONCE IVP 09/14/18 21:15 09/14/18 21:16 DC 09/14/18 21:20 4 MG Morphine Sulfate 4 mg ONCE PRN IVP 09/14/18 22:30 09/14/18 22:24 4 MG Vital Signs/I&O 09/14/18 09/15/18 09/15/18 09/15/18 20:11 01:26 01:30 04:10 Temp 98.3 97.6 98.5 Pulse 73 68 62 Resp 22 20 18 B/P (MAP) 140/78 (98) 133/71 (91) 137/75 (95) Pulse Ox 99 98 97 O2 Delivery Room Air Room Air Room Air Room Air 09/15/18 04:33 Temp 98.3 Pulse 82 Resp 18 B/P (MAP) 139/80 (99) Pulse Ox 99 O2 Delivery Room Air Capillary Refill : Less Than 3 Seconds Blood Pressure Mean: 98 Departure Communication (Admissions) 2099--SPOKE WITH DR. MARTIN, SURGEON BILLET INSPECTOR. WILL BE IN TO SEE PT 2106--DR. MARTIN HERE, CARE TURNED OVER TO HIM 2249--PT WILL BE ADMITTED TO DR. MARTIN AND WILL BE TAKING PT TO [place] TOMORROW MORNING Impression Primary Impression: MULTIPLE THROMBOSED HEMORRHOIDS Disposition: ADMITTED INPATIENT Condition: Stable Admissions Decision to Admit Reason: Admit from ER (General) Decision to Admit/Date: Sep 14, 2018 Time/Decision to Admit Time: 22:50 Departure-Patient Inst. Referrals: NO,LOCAL PHYSICIAN (PCP/Family) Primary Care Physician WESTON MONSON DO Sep 14, 2018 21:43
[2018-09-14] MEDS ORDERED: morphine INJ 4 MG/ML 1 ML (VIAL/SYRINGE) IVP PRN (22:30)
[2018-09-15] VITALS (7 sets, daily range): BP systolic 116–147; BP diastolic 71–90
[2018-09-15] MEDS ORDERED: morphine INJ 10 MG/ML 1ML (SYR OR VIAL) IVP STA (00:09)
[2018-09-15] MEDS ORDERED: NS IV 1000 ML 1,000 ML ONE (02:04)
[2018-09-15] MEDS: NS IV 1000 ML 1,000 ML IV SCH ×2 (02:14→12:55)
[2018-09-15] MEDS: morphine INJ 4 MG/ML 1 ML (VIAL/SYRINGE) IVP PRN ×5 (02:58→12:57)
[2018-09-15] MEDS ORDERED: FLU QUADRIvalent (5+ YOA) 2018-2019 (AFLURIA) 0.5 ML IM ONE (07:30)
--- NOTE | 2018-09-15 07:44 | History & Physical-Surgical ---
History of Present Illness History of Present Illness Reason for visit/HPI Patient seen and evaluated in ED. Patient is a 28 year old female who had failure to progress with childbirth and required c section. Patient states that she was doing fine post , but last night began having issues with hemorrhoids. They continued to get larger and became extremely painful. The pain has continued to get worse and she states is severe at this time. Nothing is making him better. Nothing is making them worse. She states that she has not been constipated. She has had issues with hemorrhoids after her second . She has had no bleeding from them. She denies any other complaints. She denies any nausea vomiting fever sweats chills shortness of breath or chest pain. Date of Admission Sep 14, 2018 at 21:07 Date Seen by a Provider: Sep 14, 2018 Time Seen by a Provider: 21:07 I consulted on this patient on 09/14/18 21:07 Attending Physician Dina Morillo DO Admitting Physician [place],Local Physician Consult Allergies and Home Medications Allergies Coded Allergies: azithromycin (Unverified Adverse Reaction, Unknown, N/V, 04/04/18) Home Medications Acetaminophen 325 Mg Tablet, 325 MG PO PRN, (Reported) Docusate Sodium 100 Mg Capsule, 100 MG PO BID PRN for CONSTIPATION-1ST LINE Prescribed by: KAUSHAL LICONA on 09/09/182152 Ferrous Sulfate 325 Mg Tablet, 325 MG PO BID WITH MEALS, (Reported) Hydrocodone Bit/Acetaminophen 1 Tab Tab, 1 TAB PO Q4H PRN for PAIN-MODERATE Prescribed by: KAUSHAL LICONA on 09/09/182152 Ibuprofen 600 Mg Tablet, 600 MG PO Q6H Prescribed by: KAUSHAL LICONA on 09/09/182152 Lansoprazole 15 Mg Capsule.dr, 15 MG PO BID, (Reported) Vit W-Ca,Fe,FA(<1 mg) 1 Each Tablet, 1 EACH PO DAILY, (Reported) Ranitidine HCl 150 Mg Tablet, 150 MG PO BID, (Reported) Sertraline HCl 50 Mg Tablet, 50 MG PO DAILY Prescribed by: TIM HOLLAND on 07/20/18 0702 Patient Home Medication List Home Medication List Reviewed: Yes Past Kxbpnsv-Vmumdt-Plmstw Hx Patient Social History Alcohol Use: Denies Use Recreational Drug Use: No Drug of Choice: marijuana Smoking Status: Former Smoker Former Smoker, Quit: Sep 05, 2017 Type Used: Electronic/Vapor 2nd Hand Smoke Exposure: No Recent Foreign Travel: No Contact w/Someone Who Travel: No Recent Infectious Disease Expo: No Recent Hopitalizations: Yes ( LAST WEEK) Physical Abuse Screen: No Sexual Abuse: No Immunizations Up To Date Tetanus Booster (TDap): Unknown PED Vaccines UTD: Yes Seasonal Allergies Seasonal Allergies: No Surgeries History of Surgeries: Yes ( X 1; HEMORRHOIDECTOMY) Surgeries: Adenoidectomy, Section, Gallbladder, Rectal, Tonsillectomy , 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 Respiratory History of Respiratory Disorde: No Cardiovascular History of Cardiac Disorders: No Neurological History of Neurological Disord: Yes Neurological Disorders: Headaches /Migraines Reproductive System : No Hx Reproductive Disorders: No Sexually Transmitted Disease: No HIV/AIDS: No Female Reproductive Disorders: Denies 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 Genitourinary History of Genitourinary Disor: No Gastrointestinal History of Gastrointestinal Di: Yes Gastrointestinal Disorders: Gastroesophageal Reflux, Hemorrhoids Musculoskeletal History of Musculoskeletal Dis: No Endocrine History of Endocrine Disorders: No HEENT History of HEENT Disorders: No Cancer History of Cancer: No Psychosocial History of Psychiatric Problem: Yes Behavioral Health Disorders: Anxiety, Depression Integumentary History of Skin or Integumenta: No Blood Transfusions History of Blood Disorders: No Adverse Reaction to a Blood Tr: No Family Medical History Significant Family History: No Pertinent Family Hx Family Medial History: Patient reports no known family medical history. Review of Systems Constitutional: no symptoms reported EENTM: no symptoms reported Respiratory: no symptoms reported Cardiovascular: no symptoms reported Gastrointestinal: see HPI Genitourinary: no symptoms reported : No Musculoskeletal: no symptoms reported Skin: no symptoms reported Psychiatric/Neurological: No Symptoms Reported Physical Exam Vital Signs Vital Signs - First Documented 09/14/18 20:11 Temp 98.3 Pulse 73 Resp 22 B/P (MAP) 140/78 (98) Pulse Ox 99 O2 Delivery Room Air Capillary Refill : Less Than 3 Seconds Height, Weight, BMI Height: 5'7.00" Weight: 276lbs. 9.8oz. [id number]; 43.2 BMI Method:Stated General Appearance: Mild Distress HEENT: PERRL/EOMI, Normal ENT Inspection Neck: Non Tender, Supple Respiratory: Chest Non Tender, No Accessory Muscle Use, No Respiratory Distress Cardiovascular: Regular Rate, Rhythm Gastrointestinal: Non Tender, Soft Rectal: Tenderness, Other (large right external thrombosed hemorrhoids, extremely tender to touch) Back: Normal Inspection Extremity: Normal Inspection Neurologic/Psychiatric: Alert, Oriented x3, No Motor/Sensory Deficits, Normal Mood/Affect, sexual assault counselor II-XII Norm as Tested Skin: Normal Color, Warm/Dry Lymphatic: No Adenopathy Assessment/Plan Assessment/Plan Admission Diagonsis intractable pain external thrombosed hemorrhoids Admission Status: Observation Assessment/Plan intractable pain external thrombosed hemorrhoids incision and drainage and removal of clots of throbosed hemorrhoids patient was only partially able to tolerate this she also just had oral intake will keep in observation, npo after midnight and plan exam under anesthesia all other indicated procedures patient understands risks and benefits and wishes to proceed as planned. pain control Clinical Quality Measures DVT/VTE Risk/Contraindication: Risk Factor Score Per Nursin RFS Level Per Nursing on Admit: 2=Moderate DINA MORILLO DO Sep 15, 2018 07:44
[2018-09-15] MEDS ORDERED: HYDR-3812 PO (08:48)
[2018-09-15] MEDS ORDERED: SERT50TA9 PO (08:48)
[2018-09-15] MEDS ORDERED: FAMO20TA5 PO (08:48)
[2018-09-15] MEDS ORDERED: IBUP-1773 PO (08:48)
[2018-09-15] MEDS ORDERED: DOCU-244 PO (08:48)
[2018-09-15] MEDS ORDERED: LIDOCAINE 1% INJ 20 ML 20 ML VIAL ONE (13:09)
[2018-09-15] MEDS ORDERED: BUPIVACAINE 0.5% 30 ML (SENSORCAINE) VIAL ONE (13:09)
[2018-09-15] MEDS ORDERED: DEXAMETHASONE 10 MG/ML (DECADRON) 1 ML VIAL ONE (13:33)
[2018-09-15] MEDS ORDERED: SEVOFLURANE (ULTANE) 15 ML INHAL SOLN ONE ×2 (13:33→15:18)
[2018-09-15] MEDS ORDERED: ONDANSETRON 4 MG/2 ML (SDV) Z0FRAN ONE (13:33)
[2018-09-15] MEDS ORDERED: proPOfol 200 MG/20 ML (DIPRIVAN) VIAL IV ONE ×2 (13:33→15:17)
--- NOTE | 2018-09-15 13:33 | Progress Note ---
Subjective Date Seen by a Provider: Sep 15, 2018 Time Seen by a Provider: 12:42 Subjective/Events-last exam Patient feeling maybe a little better. Feels like the area has gotten larger with hemorrhoids. Still with significant pain. denies any new complaints. denies fever sweats chills shortness of breath or chest pain. Objective Exam Vital Signs Date Time Temp Pulse Resp B/P (MAP) Pulse Ox O2 Delivery O2 Flow Rate FiO2 09/15/18 08:00 98.6 67 16 147/90 (109) 96 Room Air 09/15/18 04:33 98.3 82 18 139/80 (99) 99 Room Air 09/15/18 04:10 98.5 62 18 137/75 (95) 97 Room Air 09/15/18 01:30 Room Air 09/15/18 01:26 97.6 68 20 133/71 (91) 98 Room Air 09/14/18 20:11 98.3 73 22 140/78 (98) 99 Room Air I & O 09/15/18 07:00 Intake Total 0 ml Balance 0 ml Capillary Refill : Less Than 3 Seconds General Appearance: No Apparent Distress HEENT: PERRL/EOMI, Normal ENT Inspection Neck: Non Tender, Supple Respiratory: Chest Non Tender, No Accessory Muscle Use, No Respiratory Distress Cardiovascular: Regular Rate, Rhythm Extremity: Normal Inspection Neurologic/Psychiatric: Alert, Oriented x3, No Motor/Sensory Deficits, Normal 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 pain control Clinical Quality Measures DVT/VTE Risk/Contraindication: Risk Factor Score Per Nursin RFS Level Per Nursing on Admit: 2=Moderate DINA MARTIN DO Sep 15, 2018 13:33
[2018-09-15] MEDS ORDERED: fentaNYL INJECTION 100 MCG/2 ML AMP ONE ×2 (13:34→15:03)
[2018-09-15] MEDS ORDERED: MIDAZOLAM 2 MG/2 ML (VERSED) VIAL ONE (13:34)
[2018-09-15] MEDS: LACTATED RINGERS 1,000 ML IV PRN ×2 (14:25→16:03)
[2018-09-15] MEDS ORDERED: LIDOCAINE PF 2% 5 ML (XYLOCAINE) VIAL ONE (14:53)
[2018-09-15] MEDS ORDERED: KETOROLAC 30 MG/ML VIAL ONE (14:53)
--- NOTE | 2018-09-15 15:40 | Progress Note-Post Operative ---
Post-Operative Progess Note Surgeon (s)/Pole Setter (s) Surgeon DINA MARTIN DO Pole Setter: na Pre-Operative Diagnosis thrombosed external hemorrhoids Post-Operative Diagnosis same Procedure & Operative Findings Date of Procedure 09/15/18 Procedure Performed/Findings exam under anesthesia, i and d thrombosed external hemorrhoids Anesthesia Type gen Estimated Blood Loss Estimated blood loss (mL): min Specimens/Packing Specimens Removed na DINA MARTIN DO Sep 15, 2018 15:40
[2018-09-15] MEDS ORDERED: MEPERIDINE (DEMEROL) INJ 50 MG/ML IVP ONE (15:45)
[2018-09-15] MEDS ORDERED: morphine INJ 10 MG/ML 1ML (SYR OR VIAL) IVP ONE (15:45)
[2018-09-15] MEDS ORDERED: HYDROmorphone 2 MG/ML VIAL (DILAUDID) IV ONE (15:45)
[2018-09-15] MEDS ORDERED: HYDROcodone/APAP 5 MG/325 MG (LORTAB) TAB PO PRN (15:45)
[2018-09-15] MEDS ORDERED: ONDANSETRON 4 MG/2 ML (SDV) Z0FRAN IVP PRN (15:45)
--- NOTE | 2018-09-15 15:46 | Discharge Inst-Simple/Standard ---
Discharge Inst-Standard Patient Instructions/Follow Up Plan of Care/Instructions/FU: Ilia 2 weeks. Any issues before then be seen at that time. Sitz bath 3 time per day and as needed and after bowel movements. Massage the hemorrhoidal tissues to keep open. Activity as Tolerated: No Discharge Diet: Regular Diet Other Inst to Patient Follow up Appt: Make appointment for 2 week. Instructions: No lifting greater than 10 pounds. No strenuous activity. May shower in 24 hours, no tub bath or soaking. Use incentive spirometer at home as directed. No Smoking Skin/Wound Care: Sitz bath 3 times per day and as needed and after bowel movements. Massage hemorrhoidal tissue to keep incisions open. Symptoms to Report: Appetite Changes, Extremity Discoloration, Numbness/Tingling, Swelling Increased , Bleeding Excessive, Eyesight Changes, Pain Increased, Urine Color Change, Constipation(Persistent), Fever over 101 degree F, Pain/Pressure in chest, Urinating Difficulty, Cough Up/Vomit Blood, Heart Beat Irreg/Pounding, Pain/ Pressure in jaw, Vaginal Bleeding Increase, Cramps in feet or legs, Lightheadedness, Pain/Pressure in shoulder, Diarrhea(Persistent), Memory Changes Suddenly, Questions/Concerns, Weight gain consecutive days, Dizziness/ Fainting, Nausea/Vomiting, Shortness of Breath, Weight gain over 2 pounds If questions or concerns contact your physician Or seek help at emergency department. DINA MARTIN DO Sep 15, 2018 15:46
--- NOTE | 2018-09-16 00:20 | OPERATIVE REPORT ---
DATE OF SERVICE: 09/15/2018 PREOPERATIVE DIAGNOSIS: Thrombosed external hemorrhoids. POSTOPERATIVE DIAGNOSIS: Thrombosed external hemorrhoids. PROCEDURE: Exam under anesthesia, incision and drainage of thrombosed external hemorrhoids. SURGEON: Dina Morillo DO. ANESTHESIA: General. ESTIMATED BLOOD LOSS: Minimal. COMPLICATIONS: None. INDICATIONS: The patient is a 28-year-old female who was unable to tolerate incision and drainage of thrombosed external hemorrhoids in the Emergency Department yesterday. She was explained risks and benefits of procedure and wished to proceed with procedure. Consent was signed on the chart. DESCRIPTION OF PROCEDURE: The patient was taken to the operating suite. She was prepped and draped in the lithotomy position. Timeout was performed. Digital rectal exam was performed and the external hemorrhoids were noted. There are no other palpable polyps, masses or ulcerations. The right side hemorrhoids were already partially opened. Hemostat was placed in . Clot continued to be evacuated by grasping and removing it. There are still some areas that were difficult to access where a significant amount of clot was present. Therefore, the incision was lengthened. The clots were continued to be dissected and removed from the right anterior and posterior external thrombosed hemorrhoids. The left side now was able to be inspected and evaluated. The left side external hemorrhoids, two fairly significant large areas where a 15 blade scalpel was used to make incisions over these two areas. Hemostats were used to dissect down through the incision and large amount of clot was evacuated. No other clots were visualized after the large clot burden was removed from both areas. The wounds were then irrigated with copious amounts of irrigation. After removing all the clots the hemorrhoidal tissue already had seemed to reduce in the overall amount. The area was then irrigated and washed and dried and sterile bandage was applied. The patient was taken to the recovery room in stable condition. Prior to bandaging local anesthetic was infiltrated and a block was performed as well. Job ID: [id number] DocumentID: [id number] Dictated Date: 09/15/2018 21:33:44 Technician Helper Instrument Date: 09/16/2018 00:20:03 Dictated By: DINA MORILLO DO
--- NOTE | 2018-09-16 08:24 | OPERATIVE REPORT ---
DATE OF SERVICE: PREPROCEDURE DIAGNOSIS: Thrombosed external hemorrhoids. POSTPROCEDURE DIAGNOSIS: Thrombosed external hemorrhoids. PROCEDURE: Incision, drainage and removal of clot of thrombosed hemorrhoids. SURGEON: Dina Morillo DO ANESTHESIA: Local 1% lidocaine with epinephrine. ESTIMATED BLOOD LOSS: Minimal. COMPLICATIONS: None. INDICATIONS: The patient is a 28-year-old female with intractable pain from thrombosed hemorrhoids that are external. She understands risks and benefits of procedure and wished to proceed with procedure in the Emergency Department. She and her understands risks, benefits and wished to proceed. Consent was signed and on the chart. DESCRIPTION OF PROCEDURE: The patient was placed in the left lithotomy position, prepped and draped with Betadine. Local anesthetic was infiltrated along the right external thrombosed hemorrhoids. Incision was made with 11 blade scalpel with large thrombosed hemorrhoid on the posterior and anterior right side. A hemostat was used to open the incision and began removing large clots that were present. Clots were extremely large and continued to be deeper and the patient was unable to continue to tolerate a procedure at bedside. She just recently had oral intake. Therefore, we discussed admission to the hospital and doing surgery tomorrow under general anesthetic. The patient wishes to proceed with plan. The area was washed and dried and sterile bandage was applied. Job ID: [id number] DocumentID: [id number] Dictated Date: 09/15/2018 21:29:41 Boilers Inspector Date: 09/16/2018 00:19:18 Dictated By: DINA MORILLO DO
--- NOTE | 2018-09-16 14:04 | Anesthesia-General Post-Op ---
General Patient Condition Mental Status/LOC: Same as Preop Cardiovascular: Satisfactory Nausea/Vomiting: Absent Respiratory: Satisfactory Pain: Controlled Complications: Absent Post Op Complications Complications None Follow Up Care/Instructions Patient Instructions None needed. Anesthesia/Patient Condition Patient Condition Patient is already discharged to home. No complications noted per nursing staff. SARAH MESSINA DO Sep 16, 2018 14:04
== END 2018-09-15 20:00 | disposition home or self-care (01) ==
LOC: EDUNIT# 19:59 → ER 20:01 → SDC 20:02 → 4TH 20:02 → UNDOADMOB 09-15 01:07 → 4TH 09-15 01:07 → SDC 09-15 20:00 → UNDODISOB 09-15 20:00
PROVIDERS: ATTEND Surgery
DX: O87.2 Hemorrhoids in the puerperium (principal); O99.63 Diseases of the digestive system complicating the puerperium; K21.9 Gastro-esophageal reflux disease without esophagitis; O99.345 Other mental disorders complicating the puerperium; F32.9 Major depressive disorder, single episode, unspecified; Z79.899 Other long term (current) drug therapy
CPT/HCPCS: 87081; 96374; 96376; 99284

== ENCOUNTER 2018-09-20 09:25 | Emergency (ER) | payer MEDICAID ==
[~2018-09-20] VITALS: Ht 170.2 cm; Wt 123.4 kg
[~2018-09-20 09:25] MED LIST changes: +DOCU-244 PO; +FAMO20TA5 PO; +HYDR-3812 PO; +IBUP-1773 PO; +SERT50TA9 PO
[2018-09-20 11:28] LABS: BILIRUBIN,URINE NEGATIVE (NEGATIVE); CLARITY,URINE CLEAR; COLOR,URINE YELLOW; GLUCOSE, URINE (UA) NEGATIVE (NEGATIVE); KETONES,URINE NEGATIVE (NEGATIVE); LEUKOCYTE ESTERASE ,URINE NEGATIVE (NEGATIVE); NITRITE,URINE NEGATIVE (NEGATIVE); PH,URINE 7 (5-9); PROTEIN,URINE NEGATIVE (NEGATIVE); UROBILINOGEN,URINE NORMAL (NORMAL)
[2018-09-20 11:30] LABS: BASOPHILS % (AUTO) 1 % (0-10); EOSINOPHILS # (AUTO) 0.2 10^3/uL (0.0-0.3); EOSINOPHILS % (AUTO) 3 % (0-10); HEMATOCRIT 33 % (35-52); HEMOGLOBIN 10.1 G/DL (11.5-16.0); LYMPHOCYTES # (AUTO) 1.8 X 10^3 (1.0-4.0); LYMPHOCYTES % (AUTO) 26 % (12-44); MEAN CORPUSCULAR HEMOGLOBIN 24 PG (25-34); MEAN CORPUSCULAR HGB CONC 31 G/DL (32-36); MEAN CORPUSCULAR VOLUME 79 FL (80-99); MEAN PLATELET VOLUME 9.8 FL (7.4-10.4); MONOCYTES # (AUTO) 0.3 X 10^3 (0.0-1.0); MONOCYTES % (AUTO) 5 % (0-12); NEUTROPHILS # (AUTO) 4.3 X 10^3 (1.8-7.8); NEUTROPHILS % (AUTO) 65 % (42-75); PLATELET COUNT 391 10^3/uL (130-400); RED BLOOD COUNT 4.17 10^6/uL (4.35-5.85); RED CELL DISTRIBUTION WIDTH 15.6 % (10.0-14.5); WHITE BLOOD COUNT 6.6 10^3/uL (4.3-11.0)
[2018-09-20 11:38] LABS: BACTERIA,URINE TRACE /HPF; RBC,URINE RARE /HPF; WBC,URINE 0-2 /HPF
--- NOTE | 2018-09-20 11:39 | ED GU-Female ---
General Chief Complaint: General Problems/Pain Stated Complaint: SWOLLEN FEET,HIGH BP Nursing Triage Note: AMB TO ROOM REPORTS HAD BABY ON SEP 09 SINCE THAN HAS HAD A INCREASE IN LEG SWELLING AND B/P HAS BEEN ELEVATED. TODAY WITH CHEST PAIN. PAIN WORSE WITH INSPIRATION. AND MOVING Nursing Sepsis Screen: No Definite Risk Source: patient, family Exam Limitations: no limitations History of Present Illness Date Seen by Provider: Sep 20, 2018 Time Seen by Provider: 11:35 Initial Comments The patient is a 28-year-old white female who had a baby girl on 09/09. She reports that since she has returned home she has noted leg swelling which was a relative minimum while . She also has noted a blood pressure elevation and pressure in her chest. There was apparently no evidence of preeclampsia during the and none during her prior 2 pregnancies. Timing/Duration: week Severity/Quality: mild, moderate Allergies and Home Medications Allergies Coded Allergies: azithromycin (Unverified Adverse Reaction, Unknown, N/V, 04/04/18) Home Medications Acetaminophen 325 Mg Tablet, 325 MG PO Q4H PRN for PAIN-MILD, (Reported) Docusate Sodium 100 Mg Capsule, 100 MG PO BID PRN for CONSTIPATION-1ST LINE, ( Reported) Famotidine 20 Mg Tablet, 20 MG PO BID PRN for HEARTBURN, (Reported) Hydrocodone/Acetaminophen 1 Each Tablet, 1 TAB PO Q4H PRN for PAIN-MODERATE, ( Reported) Ibuprofen 600 Mg Tablet, 600 MG PO Q6H PRN for PAIN-MILD, (Reported) Sertraline HCl 50 Mg Tablet, 50 MG PO DAILY, (Reported) Patient Home Medication List Home Medication List Reviewed: Yes Review of Systems Review of Systems Constitutional: see HPI EENTM: no symptoms reported Respiratory: no symptoms reported, other (some pressure in the chest) Cardiovascular: no symptoms reported Gastrointestinal: no symptoms reported Genitourinary: no symptoms reported Skin: no symptoms reported Psychiatric/Neurological: No Symptoms Reported Endocrine: No Symptoms Reported Hematologic/Lymphatic: No Symptoms Reported Past Ysxlgmq-Yhxarl-Jqssir Hx Patient Social History Alcohol Use: Denies Use Recreational Drug Use: No (SMOKES 1/2 PPD) Drug of Choice: marijuana Smoking Status: Never a Smoker Type Used: Electronic/Vapor Former Smoker, Quit: Sep 05, 2017 2nd Hand Smoke Exposure: No Recent Foreign Travel: No Contact w/Someone Who Travel: No Recent Infectious Disease Expo: No Recent Hopitalizations: Yes ( LAST WEEK) Immunizations Up To Date Tetanus Booster (TDap): Unknown PED Vaccines UTD: Yes Seasonal Allergies Seasonal Allergies: No Past Medical History Surgeries: Yes ( X 1; HEMORRHOIDECTOMY) Adenoidectomy, Section, Gallbladder, Rectal, Tonsillectomy, 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 Respiratory: No Currently Using CPAP: No Currently Using BIPAP: No Cardiac: No Neurological: Yes Headaches /Migraines Reproductive Disorders: No Female Reproductive Disorders: Denies 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 No Pertinent Family Hx Physical Exam Vital Signs Vital Signs - First Documented 09/20/18 09:44 Temp 97.2 Pulse 54 Resp 18 B/P (MAP) 170/100 (123) Pulse Ox 54 O2 Delivery Room Air Capillary Refill : Less Than 3 Seconds Height, Weight, BMI Height: 5'7.00" Weight: 272lbs. 9.8oz. 123.165479sx; 43.2 BMI Method:Stated General Appearance: WD/WN, no apparent distress HEENT: normal ENT inspection Neck: full range of motion Cardiovascular: normal peripheral pulses, regular rate, rhythm, no edema, no gallop, no JVD, no murmur Respiratory: chest non-tender, lungs clear, normal breath sounds, no respiratory distress, no accessory muscle use, respiratory distress Gastrointestinal: normal bowel sounds, non tender, soft, no organomegaly, no pulsatile mass, abnormal bowel sounds Pelvic: normal external exam, normal adnexa, no cerv. motion tender, no masses , discharge, lesions, mass Back: normal inspection, no CVA tenderness, no vertebral tenderness, CVA tenderness (R), CVA tenderness (L) Neurologic/Psychiatric: channel partners II-XII nml as tested, no motor/sensory deficits, alert, normal mood/affect, oriented x 3 Skin: normal color, warm/dry, cyanosis, cool, diaphoresis, pallor Lymphatic: no adenopathy Minimum pedal edema and no pitting. The pressure at this time is 149/110 Progress/Results/Core Measures Suspected Sepsis Recent Fever Within 48 Hours: No Infection Criteria Present: None New/Unexplained Altered Menta: No Sepsis Screen: No Definite Risk SIRS Temperature:97.2 Pulse: 54 Respiratory Rate: 18 Laboratory Tests 09/20/18 11:23: White Blood Count 6.6 Blood Pressure 170 /100 Mean: 123 Laboratory Tests 09/20/18 11:23: Creatinine 0.83, Platelet Count 391, Total Bilirubin 0.5 Results/Orders Lab Results Laboratory Tests Test 09/20/18 11:19 09/20/18 11:23 Range/Units Urine Color YELLOW Urine Clarity CLEAR Urine pH 7 5-9 Urine Specific [place] 1.005 L 1.016-1.022 Urine Protein NEGATIVE NEGATIVE Urine Glucose (UA) NEGATIVE NEGATIVE Urine Ketones NEGATIVE NEGATIVE Urine Nitrite NEGATIVE NEGATIVE Urine Bilirubin NEGATIVE NEGATIVE Urine Urobilinogen NORMAL NORMAL MG/DL Urine Leukocyte Esterase NEGATIVE NEGATIVE Urine RBC (Auto) 3+ H NEGATIVE Urine RBC RARE /HPF Urine WBC 0-2 /HPF Urine Crystals NONE /LPF Urine Bacteria TRACE /HPF Urine Casts NONE /LPF Urine Mucus NEGATIVE /LPF Urine Culture Indicated NO White Blood Count 6.6 4.3-11.0 10^3/uL Red Blood Count 4.17 L 4.35-5.85 10^6/uL Hemoglobin 10.1 L 11.5-16.0 G/DL Hematocrit 33 L 35-52 % Mean Corpuscular Volume 79 L 80-99 FL Mean Corpuscular Hemoglobin 24 L 25-34 PG Mean Corpuscular Hemoglobin Concent 31 L 32-36 G/DL Red Cell Distribution Width 15.6 H 10.0-14.5 % Platelet Count 391 130-400 10^3/uL Mean Platelet Volume 9.8 7.4-10.4 FL Neutrophils (%) (Auto) 65 42-75 % Lymphocytes (%) (Auto) 26 12-44 % Monocytes (%) (Auto) 5 0-12 % Eosinophils (%) (Auto) 3 0-10 % Basophils (%) (Auto) 1 0-10 % Neutrophils # (Auto) 4.3 1.8-7.8 X 10^3 Lymphocytes # (Auto) 1.8 1.0-4.0 X 10^3 Monocytes # (Auto) 0.3 0.0-1.0 X 10^3 Eosinophils # (Auto) 0.2 0.0-0.3 10^3/uL Basophils # (Auto) 0.0 0.0-0.1 10^3/uL Sodium Level 145 135-145 MMOL/L Potassium Level 3.8 3.6-5.0 MMOL/L Chloride Level 109 H 98-107 MMOL/L Carbon Dioxide Level 24 21-32 MMOL/L Anion Gap 12 5-14 MMOL/L Blood Urea Nitrogen 7 7-18 MG/DL Creatinine 0.83 0.60-1.30 MG/DL Estimat Glomerular Filtration Rate > 60 BUN/Creatinine Ratio 8 Glucose Level 90 70-105 MG/DL Calcium Level 9.0 8.5-10.1 MG/DL Corrected Calcium 9.1 8.5-10.1 MG/DL Total Bilirubin 0.5 0.1-1.0 MG/DL Aspartate Amino Transf (AST/SGOT) 15 5-34 U/L Alanine Aminotransferase (ALT/SGPT) 19 0-55 U/L Alkaline Phosphatase 111 40-136 U/L Total Protein 6.9 6.4-8.2 GM/DL Albumin 3.9 3.2-4.5 GM/DL My Orders Orders - GERARDO MILES MD Cbc With Automated Diff (09/20/18 10:51) Comprehensive Metabolic Panel (09/20/18 10:51) Ua Culture If Indicated (09/20/18 10:51) Chest 1 View, Ap/Pa Only (09/20/18 11:55) Vital Signs/I&O 09/20/18 09/20/18 09/20/18 09:44 11:40 12:20 Temp 97.2 Pulse 54 44 44 Resp 18 18 18 B/P (MAP) 170/100 (123) 149/110 (123) 156/95 (115) Pulse Ox 54 99 99 O2 Delivery Room Air Room Air Room Air Capillary Refill : Less Than 3 Seconds Blood Pressure Mean: 123 Departure Impression Primary Impression: hypertension Disposition: 01 HOME, SELF-CARE Condition: Stable/Unchanged Departure-Patient Inst. Decision time for Depature: 12:23 Referrals: NO,LOCAL PHYSICIAN (PCP) Primary Care Physician Add. Discharge Instructions: All discharge instructions reviewed with patient and/or family. Voiced understanding. I have discussed this with Dr. Paredes who is covering for Dr. LICONA today. We are going to start you on a blood pressure medicine. You should expect a call back from obstetrics tomorrow. Scripts Labetalol HCl (Labetalol HCl) 100 Mg Tablet 100 MG PO DAILY, #30 TAB Prov: GERARDO MILES MD 09/20/18 GERARDO MILES MD Sep 20, 2018 11:39
[2018-09-20 11:40] VITALS: BP 149/110
[2018-09-20 11:53] LABS: ALANINE AMINOTRANSFERASE 19 U/L (0-55); ALBUMIN 3.9 GM/DL (3.2-4.5); ALKALINE PHOSPHATASE 111 U/L (40-136); BILIRUBIN,TOTAL 0.5 MG/DL (0.1-1.0); BUN/CREATININE RATIO 8; CARBON DIOXIDE 24 MMOL/L (21-32); CHLORIDE 109 MMOL/L (98-107); CREATININE SERUM 0.83 MG/DL (0.60-1.30); GFR ESTIMATED > 60; GLUCOSE 90 MG/DL (70-105); POTASSIUM 3.8 MMOL/L (3.6-5.0); SODIUM 145 MMOL/L (135-145); TOTAL PROTEIN 6.9 GM/DL (6.4-8.2)
--- NOTE | 2018-09-20 12:15 | Diagnostic Imaging Report ---
INDICATION: Swelling of leg with chest pain. Comparison with 01/01/2018. FINDINGS: Portable chest. The heart does appear slightly larger though this is probably due to current images being quite lordotic. There are no infiltrates. The lungs are well-aerated. There is no air trapping. No pulmonary edema. No hilar adenopathy. No pneumothorax or pleural effusions. IMPRESSION: 1. Rather lordotic view of the chest with no acute abnormalities demonstrated. Dictated by: Dictated on workstation # [id number]
[2018-09-20 12:20] VITALS: BP 156/95
[2018-09-20] MEDS ORDERED: LABE100T6 PO (12:47)
[2018-09-20] MEDS ORDERED: LABETALOL 200 MG (NORMODYNE) TAB PO ONE (13:00)
[2018-09-20 13:03] VITALS: BP 147/109
== END 2018-09-20 13:03 | disposition home or self-care (01) ==
LOC: EDUNIT# 09:25 → ER 09:26
DX: O16.5 Unspecified maternal hypertension, complicating the puerperium (principal); O99.355 Diseases of the nervous system complicating the puerperium; G43.909 Migraine, unspecified, not intractable, without status migrainosus; O99.63 Diseases of the digestive system complicating the puerperium; K21.9 Gastro-esophageal reflux disease without esophagitis; O99.345 Other mental disorders complicating the puerperium; F41.9 Anxiety disorder, unspecified; F32.9 Major depressive disorder, single episode, unspecified; O99.325 Drug use complicating the puerperium; F12.10 Cannabis abuse, uncomplicated; Z98.890 Other specified postprocedural states; Z88.0 Allergy status to penicillin; Z87.19 Personal history of other diseases of the digestive system; Z87.59 Personal history of other complications of pregnancy, childbirth and the puerperium; Z87.891 Personal history of nicotine dependence
CPT/HCPCS: 36415; 71045; 80053; 81000; 85025

== ENCOUNTER 2019-02-24 13:46 | Emergency (ER) | payer OTHER ==
[~2019-02-24] VITALS: Ht 170.2 cm; Wt 120.2 kg
[~2019-02-24 13:46] MED LIST changes: +LABE100T6 PO
[2019-02-24 16:28] VITALS: BP 0/0
--- NOTE | 2019-02-24 16:28 | NUR ---
When called from the waiting room the patient was not found. Pt. lwbs.
== END 2019-02-24 16:28 | disposition left against medical advice (07) ==
LOC: EDUNIT# 13:46 → ER 13:47
DX: N93.9 Abnormal uterine and vaginal bleeding, unspecified (principal); F17.210 Nicotine dependence, cigarettes, uncomplicated
CPT/HCPCS: 99281

== ENCOUNTER 2019-03-22 14:11 | Emergency (ER) | payer OTHER ==
[~2019-03-22] VITALS: Ht 170.2 cm; Wt 120.2 kg
[2019-03-22] MEDS ORDERED: MEDR5TAB PO (14:34)
--- NOTE | 2019-03-22 14:34 | ED GU-Female ---
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 She's had some ongoing issues with heavy vaginal bleeding since delivery of her child in September. His particular episode of bleeding started midnight last night, she's been using 1 supraorbital tampon per hour every hour since then, having some lower abdominal cramping, generally not feeling well. Unable to go to work and "ruining my furniture" because of the degree of bleeding. She was formerly on medroxyprogesterone acetate until she ran out of that about 5 days ago. She is scheduled to have it D&C with Dr. Lincoln next week for this issue. Timing/Duration: constant Severity/Quality: moderate Radiation: none Prior Genitourinary Problems: none Modifying Factors: Improves With Analgesics Associated Symptoms: denies symptoms Allergies and Home Medications Allergies Coded Allergies: azithromycin (Unverified Adverse Reaction, Unknown, N/V, 04/04/18) Home Medications Acetaminophen 325 Mg Tablet, 325 MG PO Q4H PRN for PAIN-MILD, (Reported) Docusate Sodium 100 Mg Capsule, 100 MG PO BID PRN for CONSTIPATION-1ST LINE, (Reported) Famotidine 20 Mg Tablet, 20 MG PO BID PRN for HEARTBURN, (Reported) Hydrocodone/Acetaminophen 1 Each Tablet, 1 TAB PO Q4H PRN for PAIN-MODERATE, (Reported) Ibuprofen 600 Mg Tablet, 600 MG PO Q6H PRN for PAIN-MILD, (Reported) Labetalol HCl 100 Mg Tablet, 100 MG PO DAILY Prescribed by: GERARDO MILES on 09/20/18 1247 Medroxyprogesterone Acetate 5 Mg Tablet, 5 MG PO DAILY Prescribed by: CR CARDOZA on 03/22/19 1434 Sertraline HCl 50 Mg Tablet, 50 MG PO DAILY, (Reported) Patient Home Medication List Home Medication List Reviewed: Yes Review of Systems Review of Systems Constitutional: see HPI EENTM: see HPI Respiratory: no symptoms reported Cardiovascular: no symptoms reported Genitourinary: see HPI Musculoskeletal: no symptoms reported Skin: no symptoms reported Psychiatric/Neurological: No Symptoms Reported Endocrine: No Symptoms Reported Hematologic/Lymphatic: No Symptoms Reported Past Zsxjjju-Qwnwmr-Nesopv Hx Patient Social History Drug of Choice: marijuana Type Used: Electronic/Vapor Former Smoker, Quit: Sep 05, 2017 2nd Hand Smoke Exposure: No Recent Foreign Travel: No Contact w/Someone Who Travel: No Recent Hopitalizations: Yes ( 5 months ago) Immunizations Up To Date Tetanus Booster (TDap): Unknown PED Vaccines UTD: Yes Seasonal Allergies Seasonal Allergies: No Past Medical History Surgeries: Yes ( X 1; HEMORRHOIDECTOMY) Adenoidectomy, Section, Gallbladder, Rectal, Tonsillectomy, 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 Respiratory: No Currently Using CPAP: No Currently Using BIPAP: No Cardiac: No Neurological: Yes Headaches /Migraines Reproductive Disorders: No Female Reproductive Disorders: Denies 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 No Pertinent Family Hx Physical Exam Vital Signs Vital Signs - First Documented 03/22/19 14:15 Temp 98.8 Pulse 65 Resp 18 B/P (MAP) 132/76 (94) Pulse Ox 100 O2 Delivery Room Air Capillary Refill : Height, Weight, BMI Height: 5'7.00" Weight: 265lbs. 9.8oz. 120.383703ws; 43.2 BMI Method:Stated General Appearance: WD/WN, no apparent distress, other (hemodynamically stable without tachycardia or hypotension on arrival, mentating well,) HEENT: PERRL/EOMI, normal ENT inspection Neck: non-tender, full range of motion Respiratory: lungs clear, normal breath sounds, no respiratory distress, no accessory muscle use Gastrointestinal: normal bowel sounds, non tender, soft Extremities: normal range of motion, non-tender Neurologic/Psychiatric: alert, oriented x 3 Skin: normal color, warm/dry Progress/Results/Core Measures Suspected Sepsis SIRS Temperature: Pulse: Respiratory Rate: Laboratory Tests 03/22/19 14:39: White Blood Count 7.4 Blood Pressure / Mean: Laboratory Tests 03/22/19 14:39: Platelet Count 278 Results/Orders Lab Results Laboratory Tests Test 03/22/19 14:39 Range/Units White Blood Count 7.4 4.3-11.0 10^3/uL Red Blood Count 4.86 4.35-5.85 10^6/uL Hemoglobin 11.2 L 11.5-16.0 G/DL Hematocrit 37 35-52 % Mean Corpuscular Volume 76 L 80-99 FL Mean Corpuscular Hemoglobin 23 L 25-34 PG Mean Corpuscular Hemoglobin Concent 30 L 32-36 G/DL Red Cell Distribution Width 18.7 H 10.0-14.5 % Platelet Count 278 130-400 10^3/uL Mean Platelet Volume 10.9 H 7.4-10.4 FL Neutrophils (%) (Auto) 60 42-75 % Lymphocytes (%) (Auto) 32 12-44 % Monocytes (%) (Auto) 6 0-12 % Eosinophils (%) (Auto) 2 0-10 % Basophils (%) (Auto) 0 0-10 % Neutrophils # (Auto) 4.5 1.8-7.8 X 10^3 Lymphocytes # (Auto) 2.4 1.0-4.0 X 10^3 Monocytes # (Auto) 0.4 0.0-1.0 X 10^3 Eosinophils # (Auto) 0.1 0.0-0.3 10^3/uL Basophils # (Auto) 0.0 0.0-0.1 10^3/uL My Orders Orders - CR CARDOZA APRN Cbc With Automated Diff (03/22/19 14:27) Medroxyprogesterone Tablet (Provera Tabl (03/22/19 15:00) Vital Signs/I&O 03/22/19 14:15 Temp 98.8 Pulse 65 Resp 18 B/P (MAP) 132/76 (94) Pulse Ox 100 O2 Delivery Room Air Capillary Refill : Departure Communication (Admissions) I was able to contact Dr. LINCOLN who recommends restarting Provera 5 mg daily until next week when she has her D&C. He would recommend checking a hemoglobin since she was a bit low around 11 last time he checked. Impression Primary Impression: Menorrhagia Qualified Codes: N92.1 - Excessive and frequent menstruation with irregular cycle Disposition: 01 HOME, SELF-CARE Condition: Stable Departure-Patient Inst. Decision time for Depature: 14:33 Referrals: NO,LOCAL PHYSICIAN (PCP) Primary Care Physician JF BOYKIN (Family) Primary Care Physician Patient Instructions: Heavy Periods Add. Discharge Instructions: 1. Keep your appointment with Dr. LINCOLN. Call his office today for follow-up. Return to ER for any concerns. Aditionally take one ibuprofen tablet 3 times daily which can help reduce endometrial blood flow by 20-40%. All discharge instructions reviewed with patient and/or family. Voiced understanding. Scripts Medroxyprogesterone Acetate (Provera) 5 Mg Tablet 5 MG PO DAILY, #10 TAB Prov: CR CARDOZA APRN 03/22/19 Work/School Note: Work Release Form Date Seen in the Emergency Department: Mar 22, 2019 Return to Work: Mar 25, 2019 Copy Copies To 1: KAUSHAL LINCOLN PETER J APRN Mar 22, 2019 14:34
[2019-03-22 14:45] LABS: BASOPHILS % (AUTO) 0 % (0-10); EOSINOPHILS # (AUTO) 0.1 10^3/uL (0.0-0.3); EOSINOPHILS % (AUTO) 2 % (0-10); HEMATOCRIT 37 % (35-52); HEMOGLOBIN 11.2 G/DL (11.5-16.0); LYMPHOCYTES # (AUTO) 2.4 X 10^3 (1.0-4.0); LYMPHOCYTES % (AUTO) 32 % (12-44); MEAN CORPUSCULAR HEMOGLOBIN 23 PG (25-34); MEAN CORPUSCULAR HGB CONC 30 G/DL (32-36); MEAN CORPUSCULAR VOLUME 76 FL (80-99); MEAN PLATELET VOLUME 10.9 FL (7.4-10.4); MONOCYTES # (AUTO) 0.4 X 10^3 (0.0-1.0); MONOCYTES % (AUTO) 6 % (0-12); NEUTROPHILS # (AUTO) 4.5 X 10^3 (1.8-7.8); NEUTROPHILS % (AUTO) 60 % (42-75); PLATELET COUNT 278 10^3/uL (130-400); RED CELL DISTRIBUTION WIDTH 18.7 % (10.0-14.5); WHITE BLOOD COUNT 7.4 10^3/uL (4.3-11.0)
[2019-03-22] MEDS ORDERED: medroxyPROGESTERone 10 MG (PROVERA) TAB PO ONE (15:00)
[2019-03-22 15:23] VITALS: BP 111/57
== END 2019-03-22 15:22 | disposition home or self-care (01) ==
LOC: EDUNIT# 14:11 → ER 14:12
DX: N92.0 Excessive and frequent menstruation with regular cycle (principal); G43.909 Migraine, unspecified, not intractable, without status migrainosus; K21.9 Gastro-esophageal reflux disease without esophagitis; F41.9 Anxiety disorder, unspecified; F32.9 Major depressive disorder, single episode, unspecified; Z87.19 Personal history of other diseases of the digestive system; Z88.1 Allergy status to other antibiotic agents; Z79.52 Long term (current) use of systemic steroids; Z87.891 Personal history of nicotine dependence; Z90.89 Acquired absence of other organs; Z98.890 Other specified postprocedural states; Z98.51 Tubal ligation status
CPT/HCPCS: 36415; 85025

== ENCOUNTER 2019-03-30 12:15 | Outpatient (CLI) | payer OTHER ==
[~2019-03-30] VITALS: Ht 170.2 cm; Wt 120.5 kg
[~2019-03-30 12:15] MED LIST changes: +MEDR5TAB PO
[2019-03-30] MEDS ORDERED: AMLO5TAB9 PO (12:27)
[2019-03-30] MEDS ORDERED: CYCL10TA9 PO (12:27)
[2019-03-30] MEDS ORDERED: GABA-490 PO (12:27)
[2019-04-01] MEDS ORDERED: IBUP-1773 PO (11:56)
== END 2019-03-30 12:39 | disposition home or self-care (01) ==
LOC: PREOP 12:15
PROVIDERS: ATTEND Obstetrics & Gynecology
DX: Z01.818 Encounter for other preprocedural examination (principal)

== ENCOUNTER 2019-04-01 08:41 | Day surgery (SDC) | payer OTHER ==
[~2019-04-01] VITALS: Ht 170.2 cm; Wt 120.5 kg
[2019-04-01] VITALS (11 sets, daily range): BP systolic 110–146; BP diastolic 2–93
[~2019-04-01 08:41] MED LIST changes: +AMLO5TAB9 PO; +CYCL10TA9 PO; +GABA-490 PO
--- NOTE | 2019-04-01 08:47 | Progress Note-Pre Operative ---
Pre-Operative Progress Note H&P Reviewed The H&P was reviewed, patient examined and no changes noted. Date Seen by Provider: Apr 01, 2019 Time Seen by Provider: 08:47 Date H&P Reviewed: Apr 01, 2019 Time H&P Reviewed: 08:47 Pre-Operative Diagnosis: KAUSHAL HO DO Apr 01, 2019 08:47
[2019-04-01] MEDS ORDERED: LACTATED RINGERS 1,000 ML IV PRN (08:56)
[2019-04-01 09:32] LABS: BASOPHILS % (AUTO) 0 % (0-10); EOSINOPHILS # (AUTO) 0.1 10^3/uL (0.0-0.3); EOSINOPHILS % (AUTO) 1 % (0-10); HEMATOCRIT 36 % (35-52); HEMOGLOBIN 11.1 G/DL (11.5-16.0); LYMPHOCYTES % (AUTO) 24 % (12-44); MEAN CORPUSCULAR HEMOGLOBIN 23 PG (25-34); MEAN CORPUSCULAR HGB CONC 31 G/DL (32-36); MEAN CORPUSCULAR VOLUME 77 FL (80-99); MONOCYTES # (AUTO) 0.4 X 10^3 (0.0-1.0); MONOCYTES % (AUTO) 5 % (0-12); NEUTROPHILS # (AUTO) 5.5 X 10^3 (1.8-7.8); NEUTROPHILS % (AUTO) 69 % (42-75); PLATELET COUNT 304 10^3/uL (130-400); RED CELL DISTRIBUTION WIDTH 18.3 % (10.0-14.5)
[2019-04-01] MEDS ORDERED: SCOPOLAMINE 1.5 MG (TRANSDERM-SCOP) PATCH TOP ONE (09:45)
[2019-04-01] MEDS ORDERED: FAMOTIDINE 20MG/2ML IV (PEPCID) IV ONE (09:45)
[2019-04-01] MEDS ORDERED: ONDANSETRON 4 MG/2 ML (SDV) Z0FRAN IV ONE (09:45)
[2019-04-01] MEDS ORDERED: BACL10TA PO (10:01)
[2019-04-01] MEDS ORDERED: BUPIVACAINE 0.25% 30 ML (SENSORCAINE) VIAL ONE (11:12)
[2019-04-01] MEDS ORDERED: ONDANSETRON 4 MG/2 ML (SDV) Z0FRAN ONE (11:50)
[2019-04-01] MEDS ORDERED: proPOfol 200 MG/20 ML (DIPRIVAN) VIAL IV ONE (11:50)
[2019-04-01] MEDS ORDERED: LIDOCAINE PF 2% 5 ML (XYLOCAINE) VIAL ONE (11:50)
[2019-04-01] MEDS ORDERED: fentaNYL INJECTION 100 MCG/2 ML AMP ONE (11:51)
[2019-04-01] MEDS ORDERED: MIDAZOLAM 2 MG/2 ML (VERSED) VIAL ONE (11:51)
[2019-04-01] MEDS ORDERED: D5 LR IV SOLUTION 1,000 ML IV SCH (11:53)
--- NOTE | 2019-04-01 11:55 | Discharge Inst-Women's Service ---
Discharge Inst-Women's Serv Depart Medication/Instructions New, Converted or Re-Newed RX: RX on Chart Consults/Follow Up Additional Follow Up: Yes Orders/Referrals Dr. Licona in 3 weeks Activity Activity: Activity as Tolerated Driving Instructions: You May Drive NO SMOKING: NO SMOKING Nothing Inside Vagina: No Douching, No [place], No Tampons Diet Discharge Diet: No Restrictions Symptoms to Report to : Bleeding Excessive, Pain Increased, Fever Over 101 Degrees F, Vaginal Bleeding Increase, Questions/Concerns For Any Problems or Questions: Contact Your Physician KAUSHAL LICONA DO Apr 01, 2019 11:55
[2019-04-01] MEDS ORDERED: SEVOFLURANE (ULTANE) 15 ML INHAL SOLN ONE ×2 (11:56→12:26)
[2019-04-01] MEDS ORDERED: IBUP-1773 PO (11:56)
[2019-04-01] MEDS ORDERED: HYDROcodone/APAP 5 MG/325 MG (LORTAB) TAB PO PRN (12:00)
[2019-04-01] MEDS ORDERED: KETOROLAC 30 MG/ML VIAL IVP ONE (12:00)
[2019-04-01] MEDS ORDERED: ONDANSETRON 4 MG/2 ML (SDV) Z0FRAN IVP PRN ×2 (12:00→12:45)
[2019-04-01] MEDS ORDERED: DEXAMETHASONE 10 MG/ML (DECADRON) 1 ML VIAL ONE (12:05)
[2019-04-01] MEDS ORDERED: morphine INJ 10 MG/ML 1ML (SYR OR VIAL) ONE (12:39)
[2019-04-01] MEDS ORDERED: MEPERIDINE (DEMEROL) INJ 50 MG/ML IVP ONE (12:45)
[2019-04-01] MEDS ORDERED: morphine INJ 10 MG/ML 1ML (SYR OR VIAL) IVP ONE (12:45)
[2019-04-01] MEDS ORDERED: PROMETHAZINE INJ 25 MG/ML (PHENERGAN) AMP IVP ONE (12:45)
[2019-04-01] MEDS ORDERED: HYDROmorphone 2 MG/ML VIAL (DILAUDID) IV ONE (12:45)
--- NOTE | 2019-04-01 13:16 | Anesthesia-General Post-Op ---
General Patient Condition Mental Status/LOC: Same as Preop Cardiovascular: Satisfactory Nausea/Vomiting: Absent Respiratory: Satisfactory Pain: Controlled Complications: Absent Post Op Complications Complications None Follow Up Care/Instructions Patient Instructions None needed. Anesthesia/Patient Condition Patient Condition Patient is doing well, no complaints, stable vital signs, no apparent adverse anesthesia problems. No complications reported per nursing. NICKOLAS JHAVERI CRNA Apr 01, 2019 13:16
--- NOTE | 2019-04-01 14:12 | NUR ---
CALLED RT AT THIS TIME AND REQUESTED INCENTIVE SPIROMETER TEACHING, STATED THEY WOULD BE HERE SHORTLY
--- NOTE | 2019-04-01 14:28 | NUR ---
RT AT BEDSIDE FOR IS TRAINING
--- NOTE | 2019-04-01 14:46 | OPERATIVE REPORT ---
DATE OF SERVICE: PREOPERATIVE DIAGNOSIS: A 29-year-old female with abnormal uterine bleeding - menorrhagia. POSTOPERATIVE DIAGNOSIS: A 29-year-old female with abnormal uterine bleeding - menorrhagia. PROCEDURE: D and C, hysteroscopy. SURGEON: Edward Lincoln DO ANESTHESIA: General endotracheal. ESTIMATED BLOOD LOSS: Minimal. URINE OUTPUT: 200 mL clear, drained at the start of the procedure. FLUIDS: 500 mL lactated Ringer's solution. FINDINGS: A grossly normal external female genitalia, normal appearing cervix, normal appearing endometrial cavity. SPECIMENS SENT: Endometrial curettings. INDICATIONS FOR PROCEDURE: This 29-year-old female is the patient that has been well established in my office since her timeframe. She has had significant concerns with heavy bleeding. She did underwent a Mirena IUD and has had to be put on medroxyprogesterone on several different occasions to control her heavy bleeding. She has recently gone to the ER probably twice in the last six months for heavy vaginal bleeding concerning for anemia. We discussed on several accounts proceeding with D and C hysteroscopy after she had the Mirena IUD removed. Risks of the procedure were discussed with the patient in detail. Eventually, she decided that this was the best option for her. After all of her questions were answered, consent was obtained in the preoperative area and the patient was taken to the operating room. OPERATIVE REPORT IN DETAIL: Once in the operating room, general anesthesia was found to be adequate. She was placed in dorsal lithotomy position, prepped and draped in normal sterile fashion. After the bladder was drained and timeout was performed, a weighted speculum was inserted in the patient's vagina. A right angle retractor was utilized. Cervix was grasped at 12 oclock position using a long Allis clamp. I then performed paracervical block at 3 and 9 o'clock positions on the cervix using 0.25% Marcaine. Care was taken to aspirate before injecting. Total of 5 mL was injected at each site. I then gently sound the uterine cavity, depth was found to be 7 cm. The cervix was then gently dilated using Hegar dilators to allow placement of my hysteroscope. Using normal saline as my visual medium and the Vaccinogen fluid management system, I then advanced the hysteroscope into the endometrial cavity, which appears grossly normal on inspection. Bilateral patent tubal ostia were noted after which I removed the hysteroscope and performed a gentle curettage using a small endometrial curette. That tissue was collected and sent as endometrial curettings. I then removed all the instruments from the patient's vagina. The patient tolerated the procedure well and was sent to recovery area in stable condition. Lap and sponge counts were correct at the end of the procedure. Instrument counts were correct as well. Job ID: [id number] DocumentID: [id number] Dictated Date: 04/01/2019 12:42:42 Drug Safety Scientist Date: 04/01/2019 14:45:58 Dictated By: DO CHRISTINA BARDALES
== END 2019-04-01 14:42 | disposition home or self-care (01) ==
LOC: SDC 08:41
PROVIDERS: ATTEND Obstetrics & Gynecology
DX: N92.0 Excessive and frequent menstruation with regular cycle (principal); I10 Essential (primary) hypertension; F32.9 Major depressive disorder, single episode, unspecified; F41.9 Anxiety disorder, unspecified; E66.01 Morbid (severe) obesity due to excess calories; Z68.41 Body mass index [BMI] 40.0-44.9, adult; Z79.899 Other long term (current) drug therapy
CPT/HCPCS: 36415; 84703; 85025; 86850; 86900; 86901; 87081

== ENCOUNTER → 2019-09-07 | Outpatient (CLI) | payer OTHER ==
[~2019-09-07] MED LIST changes: +BACL10TA PO; +RANI-613 PO; -RANI150T46 PO
[2019-09-07 12:14] LABS: HEMOGLOBIN 11.9 G/DL (11.5-16.0); MEAN PLATELET VOLUME 10.1 FL (7.4-10.4); RED CELL DISTRIBUTION WIDTH 16.9 % (10.0-14.5)
--- NOTE | 2019-09-07 12:39 | Diagnostic Imaging Report ---
INDICATION: Persistent cough since June. TECHNIQUE/COMPARISON: A frontal chest was obtained at 12:21 PM and is compared to 09/20/2018. FINDINGS: The heart and mediastinal silhouette are normal in appearance. The lungs are clear. There is no pneumothorax or pleural fluid. IMPRESSION: Negative chest. Dictated by: Dictated on workstation # [id number]
[2019-09-07 12:46] LABS: ALANINE AMINOTRANSFERASE 22 U/L (0-55); ALBUMIN 4.7 GM/DL (3.2-4.5); ALKALINE PHOSPHATASE 80 U/L (40-136); BILIRUBIN,TOTAL 0.7 MG/DL (0.1-1.0); BUN/CREATININE RATIO 12; CALCIUM 9.4 MG/DL (8.5-10.1); CARBON DIOXIDE 25 MMOL/L (21-32); CHLORIDE 107 MMOL/L (98-107); CREATININE SERUM 0.77 MG/DL (0.60-1.30); GFR ESTIMATED > 60; GLUCOSE 95 MG/DL (70-105); POTASSIUM 3.9 MMOL/L (3.6-5.0); SODIUM 142 MMOL/L (135-145); TOTAL PROTEIN 7.3 GM/DL (6.4-8.2)
[2019-09-07 13:07] LABS: FREE T4 (FREE THYROXINE) 0.81 NG/DL (0.70-1.48)
== END ==
LOC: LAB 12:01
PROVIDERS: ATTEND Internal Medicine
DX: I10 Essential (primary) hypertension (principal); R06.00 Dyspnea, unspecified; R05 Cough; R63.4 Abnormal weight loss
CPT/HCPCS: 36415; 71045; 80053; 82728; 83036; 84439; 84443; 85027; 85652

== ENCOUNTER 2019-10-05 12:52 | Outpatient (CLI) | payer OTHER ==
[2019-10-05] MEDS ORDERED: IRON DEXTRAN 25 MG/NS 6.25 ML TOTAL VOLUME IV ONE ×3 (13:15)
[2019-10-05] MEDS ORDERED: IRON DEXTRAN 1,000 MG/NS 250 ML IVPB IV ONE ×2 (13:15)
[2019-10-05 13:17] VITALS: BP 141/74
== END 2019-10-05 15:15 | disposition home or self-care (01) ==
LOC: SDC 12:52
PROVIDERS: ATTEND Internal Medicine
DX: E61.1 Iron deficiency (principal)
CPT/HCPCS: 96365; 96366

== ENCOUNTER → 2019-12-01 | Outpatient (CLI) | payer OTHER ==
[~2019-12-01] MED LIST changes: -DOCU-244 PO
[2019-12-01 11:43] LABS: BASOPHILS % (AUTO) 0 % (0-10); EOSINOPHILS # (AUTO) 0.2 10^3/uL (0.0-0.3); EOSINOPHILS % (AUTO) 2 % (0-10); HEMATOCRIT 43 % (35-52); HEMOGLOBIN 13.8 G/DL (11.5-16.0); LYMPHOCYTES # (AUTO) 2.2 X 10^3 (1.0-4.0); LYMPHOCYTES % (AUTO) 25 % (12-44); MEAN CORPUSCULAR HEMOGLOBIN 27 PG (25-34); MEAN CORPUSCULAR HGB CONC 32 G/DL (32-36); MEAN CORPUSCULAR VOLUME 82 FL (80-99); MEAN PLATELET VOLUME 10.3 FL (7.4-10.4); MONOCYTES # (AUTO) 0.3 X 10^3 (0.0-1.0); MONOCYTES % (AUTO) 4 % (0-12); NEUTROPHILS # (AUTO) 6.1 X 10^3 (1.8-7.8); NEUTROPHILS % (AUTO) 69 % (42-75); PLATELET COUNT 250 10^3/uL (130-400); RED CELL DISTRIBUTION WIDTH 18.6 % (10.0-14.5); WHITE BLOOD COUNT 8.9 10^3/uL (4.3-11.0)
[2019-12-01 12:02] LABS: ALANINE AMINOTRANSFERASE 15 U/L (0-55); ALBUMIN 4.5 GM/DL (3.2-4.5); ALKALINE PHOSPHATASE 79 U/L (40-136); BILIRUBIN,TOTAL 0.4 MG/DL (0.1-1.0); BUN/CREATININE RATIO 12; CALCIUM 9.5 MG/DL (8.5-10.1); CARBON DIOXIDE 24 MMOL/L (21-32); CHLORIDE 107 MMOL/L (98-107); CREATININE SERUM 0.74 MG/DL (0.60-1.30); GFR ESTIMATED > 60; GLUCOSE 106 MG/DL (70-105); SODIUM 140 MMOL/L (135-145); TOTAL PROTEIN 7.2 GM/DL (6.4-8.2)
== END ==
LOC: LAB 11:25
PROVIDERS: ATTEND Internal Medicine
DX: D64.9 Anemia, unspecified (principal); R51 Headache
CPT/HCPCS: 36415; 80053; 82728; 83540; 85025

== ENCOUNTER → 2019-12-20 | Outpatient (CLI) | payer OTHER ==
[~2019-12-20] VITALS: Ht 170 cm; Wt 136.0 kg
[~2019-12-20] MED LIST changes: -HYDR-3812 PO; +IRON DEXTRAN 1,000 MG/NS 250 ML IVPB IV ONE; +IRON DEXTRAN 25 MG/NS 6.25 ML TOTAL VOLUME IV ONE
[2019-12-20 13:16] VITALS: BP 118/66
== END ==
LOC: SDC 12:16
PROVIDERS: ATTEND Internal Medicine
DX: E61.1 Iron deficiency (principal)
CPT/HCPCS: 96365

== ENCOUNTER → 2019-12-20 | Outpatient (CLI) | payer OTHER ==
[~2019-12-20] MED LIST changes: +BARIUM for suspension 96% w/w (Vanilla Silq Medium Density) PO ONE; +BARIUM for suspension 98% w/w (Vanilla Silq High Density) PO ONE; -IRON DEXTRAN 1,000 MG/NS 250 ML IVPB IV ONE; -IRON DEXTRAN 25 MG/NS 6.25 ML TOTAL VOLUME IV ONE
--- NOTE | 2019-12-20 11:57 | Diagnostic Imaging Report ---
INDICATION: Preoperative gastric sleeve. Patient ingested effervescent crystals as well as thin and thick barium and imaging of the esophagus, stomach and proximal small bowel was performed. A total of 55 seconds of fluoroscopic time was utilized. The esophagus has a smooth contour. No mass or strictures identified. No gastroesophageal reflux or hiatal hernia was demonstrated. Stomach has normal configuration. There is prompt emptying into the small bowel. Duodenal bulb is without deformity. IMPRESSION: Unremarkable upper GI. Dictated by: Dictated on workstation # [id number]
== END ==
LOC: RAD 10:49
PROVIDERS: ATTEND Nurse Practitioner Family
DX: K21.9 Gastro-esophageal reflux disease without esophagitis (principal)
CPT/HCPCS: 74246

== ENCOUNTER → 2019-12-27 | Outpatient (CLI) | payer OTHER ==
[~2019-12-27] MED LIST changes: -BARIUM for suspension 96% w/w (Vanilla Silq Medium Density) PO ONE; -BARIUM for suspension 98% w/w (Vanilla Silq High Density) PO ONE; +RT-ALBUTEROL SULF 2.5 MG/3 ML PRE-MIX VIAL INH ONE; +RT-ALBUTEROL SULF 2.5 MG/3 ML PRE-MIX VIAL ONE
== END ==
LOC: RT 12:35
PROVIDERS: ATTEND Internal Medicine
DX: R06.2 Wheezing (principal)
CPT/HCPCS: 94060; 94726; 94729

== ENCOUNTER → 2020-02-29 | Outpatient (CLI) | payer OTHER ==
[~2020-02-29] MED LIST changes: -RT-ALBUTEROL SULF 2.5 MG/3 ML PRE-MIX VIAL INH ONE; -RT-ALBUTEROL SULF 2.5 MG/3 ML PRE-MIX VIAL ONE
[2020-02-29 16:51] LABS: CLARITY,URINE CLEAR; GLUCOSE, URINE (UA) NEGATIVE (NEGATIVE); KETONES,URINE 3+ (NEGATIVE); LEUKOCYTE ESTERASE ,URINE 1+ (NEGATIVE); NITRITE,URINE NEGATIVE (NEGATIVE); PH,URINE 6.5 (5-9); PROTEIN,URINE 1+ (NEGATIVE)
[2020-02-29 16:52] LABS: BASOPHILS % (AUTO) 0 % (0-10); EOSINOPHILS # (AUTO) 0.3 10^3/uL (0.0-0.3); EOSINOPHILS % (AUTO) 3 % (0-10); HEMATOCRIT 40 % (35-52); HEMOGLOBIN 13.7 G/DL (11.5-16.0); LYMPHOCYTES # (AUTO) 1.6 X 10^3 (1.0-4.0); LYMPHOCYTES % (AUTO) 20 % (12-44); MEAN CORPUSCULAR HEMOGLOBIN 29 PG (25-34); MEAN CORPUSCULAR HGB CONC 34 G/DL (32-36); MEAN CORPUSCULAR VOLUME 85 FL (80-99); MONOCYTES # (AUTO) 0.6 X 10^3 (0.0-1.0); MONOCYTES % (AUTO) 8 % (0-12); NEUTROPHILS # (AUTO) 5.3 X 10^3 (1.8-7.8); NEUTROPHILS % (AUTO) 69 % (42-75); PLATELET COUNT 251 10^3/uL (130-400); RED CELL DISTRIBUTION WIDTH 14.1 % (10.0-14.5); WHITE BLOOD COUNT 7.8 10^3/uL (4.3-11.0)
[2020-02-29 16:59] LABS: BILIRUBIN,URINE 3+ (NEGATIVE); COLOR,URINE AMBER
[2020-02-29 17:01] LABS: BACTERIA,URINE FEW /HPF; RBC,URINE 0-2 /HPF; SQUAMOUS EPITHELIAL CELL,UR 0-2 /HPF
[2020-02-29 17:02] LABS: ALBUMIN 4.4 GM/DL (3.2-4.5); CHLORIDE 102 MMOL/L (98-107); POTASSIUM 3.5 MMOL/L (3.6-5.0); SODIUM 139 MMOL/L (135-145)
[2020-02-29 17:03] LABS: CALCIUM 9.6 MG/DL (8.5-10.1)
[2020-02-29 17:04] LABS: GLUCOSE 91 MG/DL (70-105)
[2020-02-29 17:05] LABS: TOTAL PROTEIN 7.5 GM/DL (6.4-8.2)
[2020-02-29 17:06] LABS: BILIRUBIN,TOTAL 0.7 MG/DL (0.1-1.0); CARBON DIOXIDE 23 MMOL/L (21-32)
[2020-02-29 17:08] LABS: ALKALINE PHOSPHATASE 75 U/L (40-136); CREATININE SERUM 0.73 MG/DL (0.60-1.30); GFR ESTIMATED > 60
[2020-02-29 17:09] LABS: BUN/CREATININE RATIO 11
[2020-02-29 17:11] LABS: ALANINE AMINOTRANSFERASE 68 U/L (0-55)
== END ==
LOC: LAB 16:21
PROVIDERS: ATTEND Surgery
DX: N39.0 Urinary tract infection, site not specified (principal); E86.0 Dehydration
CPT/HCPCS: 36415; 80053; 81000; 85025; 87077; 87088; 87186

== ENCOUNTER 2020-12-01 19:18 | Emergency (ER) | payer BC ==
[~2020-12-01] VITALS: Ht 170 cm; Wt 86.2 kg
[~2020-12-01 19:18] MED LIST changes: +AMLO-250 PO; -AMLO5TAB9 PO; +SERT-413 PO; -SERT50TA9 PO
[2020-12-01] MEDS ORDERED: FLUO90CA4 (19:52)
[2020-12-01] MEDS ORDERED: ONDA4TAB11 (19:52)
[2020-12-01 20:27] LABS: BASOPHILS % (AUTO) 0 % (0-10); EOSINOPHILS # (AUTO) 0.2 10^3/uL (0.0-0.3); EOSINOPHILS % (AUTO) 2 % (0-10); HEMATOCRIT 43 % (35-52); HEMOGLOBIN 14.1 g/dL (11.5-16.0); LYMPHOCYTES # (AUTO) 3.1 10^3/uL (1.0-4.0); LYMPHOCYTES % (AUTO) 38 % (12-44); MEAN CORPUSCULAR HEMOGLOBIN 30 pg (25-34); MEAN CORPUSCULAR HGB CONC 33 g/dL (32-36); MEAN CORPUSCULAR VOLUME 91 fL (80-99); MEAN PLATELET VOLUME 10.5 fL (9.0-12.2); MONOCYTES # (AUTO) 0.5 10^3/uL (0.0-1.0); MONOCYTES % (AUTO) 6 % (0-12); NEUTROPHILS # (AUTO) 4.4 10^3/uL (1.8-7.8); NEUTROPHILS % (AUTO) 54 % (42-75); PLATELET COUNT 237 10^3/uL (130-400); WHITE BLOOD COUNT 8.1 10^3/uL (4.3-11.0)
[2020-12-01 20:28] LABS: BILIRUBIN,URINE NEGATIVE (NEGATIVE); CLARITY,URINE CLEAR; COLOR,URINE YELLOW; GLUCOSE, URINE (UA) NEGATIVE (NEGATIVE); KETONES,URINE NEGATIVE (NEGATIVE); LEUKOCYTE ESTERASE ,URINE NEGATIVE (NEGATIVE); NITRITE,URINE NEGATIVE (NEGATIVE); PROTEIN,URINE NEGATIVE (NEGATIVE)
[2020-12-01] MEDS ORDERED: IOHEXOL 350 MG/ML 100 ML (OMNIPAQUE 350) VIAL IV ONE (20:30)
[2020-12-01] MEDS ORDERED: HOLD METFORMIN - RECEIVED CONTRAST 20 ML VIAL IV SCH (20:30)
[2020-12-01] MEDS ORDERED: NS 100 ML (IVPB) BAG IV ONE (20:30)
[2020-12-01 20:33] LABS: BACTERIA,URINE TRACE /HPF; WBC,URINE RARE /HPF
[2020-12-01 20:45] LABS: ALANINE AMINOTRANSFERASE 48 U/L (0-55); ALBUMIN 4.5 GM/DL (3.2-4.5); ALKALINE PHOSPHATASE 58 U/L (40-136); AMYLASE 65 U/L (25-125); BILIRUBIN,TOTAL 0.7 MG/DL (0.1-1.0); BUN/CREATININE RATIO 12; CALCIUM 9.2 MG/DL (8.5-10.1); CARBON DIOXIDE 22 MMOL/L (21-32); CHLORIDE 108 MMOL/L (98-107); CREATININE SERUM 0.81 MG/DL (0.60-1.30); GFR ESTIMATED > 60; GLUCOSE 80 MG/DL (70-105); LIPASE 24 U/L (8-78); SODIUM 140 MMOL/L (135-145); TOTAL PROTEIN 6.9 GM/DL (6.4-8.2)
--- NOTE | 2020-12-01 20:57 | Diagnostic Imaging Report ---
PROCEDURE: CT abdomen and pelvis with contrast. TECHNIQUE: Multiple contiguous axial images were obtained through the abdomen and pelvis after administration of intravenous contrast. The patient was reportedly given oral contrast as well. Auto Exposure Controls were utilized during the CT exam to meet ALARA standards for radiation dose reduction. All CT scans use one or more of the following dose optimizing techniques: automated exposure control, MA and/or KvP adjustment based on patient size and exam type or iterative reconstruction. INDICATION: Abdominal pain and nausea for 4 days. Constipation. History of gastric sleeve. COMPARISON: No prior CT. FINDINGS: The lung bases are clear. The heart is normal in size. There is no pericardial effusion. The liver is mildly prominent at 19.5 cm. No focal hepatic lesion is seen. The spleen is heterogeneous, likely from perfusion artifact. The pancreas is normal. The kidneys appear normal. The adrenal glands are normal. There are postsurgical changes from prior gastric bypass. There is no free fluid or free air seen. There is no bowel distention. The appendix is not well seen but no secondary findings of appendicitis is identified. No acute osseous abnormality is identified. IMPRESSION: 1. Postsurgical changes from prior gastric bypass. No free fluid, free air or evidence of bowel obstruction is seen. 2. Mild hepatomegaly. Dictated by: Dictated on workstation # [id number]
[2020-12-01] MEDS ORDERED: ONDANSETRON 4 MG/2 ML (SDV) Z0FRAN IVP ONE (21:00)
[2020-12-01] MEDS ORDERED: KETOROLAC 30 MG/ML VIAL IVP ONE (21:00)
--- NOTE | 2020-12-01 21:08 | ED Abdominal Pain ---
General Chief Complaint: Abdominal/GI Problems Stated Complaint: DX W/ ILEUS/ABD PAIN/NAUSEA Nursing Triage Note: ABDOMINAL PAIN/NAUSEA X4 DAYS SEEN BY PCP TODAY DX WITH ILIUS. Sepsis Screen: No Definite Risk Source of Information: Patient Exam Limitations: No Limitations History of Present Illness Date Seen by Provider: Dec 01, 2020 Time Seen by Provider: 20:13 Initial Comments 30-year-old female who presents to the emergency room with complaints of left upper quadrant abdominal pain and nausea for the past 4 days. She reports that she she was seen and evaluated by her PCP today and had diagnosis of ileus. She denies any vomiting. Reports that her pain got worse tonight. Timing/Duration: 3-4 Days Severity/Quality: Aching, Cramping Location: LUQ Radiation: No Radiation Associated Symptoms: Nausea/Vomiting Allergies and Home Medications Allergies Coded Allergies: azithromycin (Unverified Adverse Reaction, Mild, N/V, 04/01/19) Patient Home Medication List Home Medication List Reviewed: Yes Review of Systems Review of Systems Constitutional: see HPI; No chills, No fever Gastrointestinal: See HPI, Abdominal Pain, Nausea All Other Systems Reviewed Negative Unless Noted: Yes Past Xohgpig-Dlpjrh-Sambwn Hx Past Med/Social Hx: Reviewed Nursing Past Med/Soc Hx Patient Social History Alcohol Use: Denies Use Drug of Choice: marijuana Smoking Status: Current Everyday Smoker Type Used: Electronic/Vapor Former Smoker, Quit: Sep 05, 2017 2nd Hand Smoke Exposure: No Recent Infectious Disease Expo: No Recent Hopitalizations: No Immunizations Up To Date Tetanus Booster (TDap): Unknown PED Vaccines UTD: Yes Seasonal Allergies Seasonal Allergies: No Past Medical History Surgeries: Yes ( X 1; HEMORRHOIDECTOMY, tubal ligation reversal, GASTRIC SLEEVE) Adenoidectomy, Section, Gallbladder, Rectal, Tonsillectomy, 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 Respiratory: No Currently Using CPAP: No Currently Using BIPAP: No Cardiac: Yes Hypertension Neurological: Yes Headaches /Migraines : No Last Menstrual Period: Dec 01, 2020 Reproductive Disorders: No Female Reproductive Disorders: 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 No Pertinent Family Hx Physical Exam Vital Signs Vital Signs - First Documented 12/01/20 19:43 Temp 36.5 Pulse 67 Resp 18 B/P (MAP) 128/84 (99) Pulse Ox 99 O2 Delivery Room Air Capillary Refill : Less Than 3 Seconds Height/Weight/BMI Height: 5'7.00" Weight: 265lbs. 9.8oz. 120.516737me; 29.00 BMI Method:Stated General Appearance: WD/WN, no apparent distress Respiratory: chest non-tender, lungs clear, normal breath sounds, no respira tory distress, no accessory muscle use Cardiovascular: normal peripheral pulses, regular rate, rhythm, no edema, no gallop, no JVD, no murmur Gastrointestinal: normal bowel sounds, soft, no organomegaly, no pulsatile mass, tenderness (Left upper quadrant tenderness) Extremities: normal range of motion, no pedal edema, no calf tenderness, normal capillary refill Neurologic/Psychiatric: alert, normal mood/affect, oriented x 3 Skin: normal color, warm/dry Progress/Results/Core Measures Results/Orders Lab Results Laboratory Tests Test 12/01/20 19:49 12/01/20 20:20 Range/Units Urine Color YELLOW Urine Clarity CLEAR Urine pH 6.0 5-9 Urine Specific [place] >=1.030 1.016-1.022 Urine Protein NEGATIVE NEGATIVE Urine Glucose (UA) NEGATIVE NEGATIVE Urine Ketones NEGATIVE NEGATIVE Urine Nitrite NEGATIVE NEGATIVE Urine Bilirubin NEGATIVE NEGATIVE Urine Urobilinogen 2.0 < = 1.0 MG/DL Urine Leukocyte Esterase NEGATIVE NEGATIVE Urine RBC (Auto) NEGATIVE NEGATIVE Urine RBC NONE /HPF Urine WBC RARE /HPF Urine Squamous Epithelial Cells 2-5 /HPF Urine Crystals NONE /LPF Urine Bacteria TRACE /HPF Urine Casts NONE /LPF Urine Mucus MODERATE H /LPF Urine Culture Indicated NO White Blood Count 8.1 4.3-11.0 10^3/uL Red Blood Count 4.68 3.80-5.11 10^6/uL Hemoglobin 14.1 11.5-16.0 g/dL Hematocrit 43 35-52 % Mean Corpuscular Volume 91 80-99 fL Mean Corpuscular Hemoglobin 30 25-34 pg Mean Corpuscular Hemoglobin Concent 33 32-36 g/dL Red Cell Distribution Width 12.3 10.0-14.5 % Platelet Count 237 130-400 10^3/uL Mean Platelet Volume 10.5 9.0-12.2 fL Immature Granulocyte % (Auto) 0 % Neutrophils (%) (Auto) 54 42-75 % Lymphocytes (%) (Auto) 38 12-44 % Monocytes (%) (Auto) 6 0-12 % Eosinophils (%) (Auto) 2 0-10 % Basophils (%) (Auto) 0 0-10 % Neutrophils # (Auto) 4.4 1.8-7.8 10^3/uL Lymphocytes # (Auto) 3.1 1.0-4.0 10^3/uL Monocytes # (Auto) 0.5 0.0-1.0 10^3/uL Eosinophils # (Auto) 0.2 0.0-0.3 10^3/uL Basophils # (Auto) 0.0 0.0-0.1 10^3/uL Immature Granulocyte # (Auto) 0.0 0.0-0.1 10^3/uL Sodium Level 140 135-145 MMOL/L Potassium Level 4.0 3.6-5.0 MMOL/L Chloride Level 108 H 98-107 MMOL/L Carbon Dioxide Level 22 21-32 MMOL/L Anion Gap 10 5-14 MMOL/L Blood Urea Nitrogen 10 7-18 MG/DL Creatinine 0.81 0.60-1.30 MG/DL Estimat Glomerular Filtration Rate > 60 BUN/Creatinine Ratio 12 Glucose Level 80 70-105 MG/DL Calcium Level 9.2 8.5-10.1 MG/DL Corrected Calcium 8.8 8.5-10.1 MG/DL Total Bilirubin 0.7 0.1-1.0 MG/DL Aspartate Amino Transf (AST/SGOT) 22 5-34 U/L Alanine Aminotransferase (ALT/SGPT) 48 0-55 U/L Alkaline Phosphatase 58 40-136 U/L Total Protein 6.9 6.4-8.2 GM/DL Albumin 4.5 3.2-4.5 GM/DL Amylase Level 65 25-125 U/L Lipase 24 8-78 U/L OLU [facility] Comprehensive Metabolic Panel (12/01/20 20:13) Lipase (12/01/20 20:13) Amylase (12/01/20 20:13) Ua Culture If Indicated (12/01/20 20:13) Ed Iv/Invasive Line Start (12/01/20 20:13) Cbc With Automated Diff (12/01/20 20:13) Ct Abdomen/Pelvis W (12/01/20 20:13) Iohexol Injection (Omnipaque 350 Mg/Ml 1 (12/01/20 20:30) Received Contrast (Hold Metformin- Contr (12/01/20 20:30) Ns (Ivpb) (Sodium Chloride 0.9% Ivpb Bag (12/01/20 20:30) Urine Bedside (12/01/20 20:21) Ketorolac Injection (Toradol Injection) (12/01/20 21:00) Ondansetron Injection (Zofran Injectio (12/01/20 21:00) Medications Given in ED Current Medications Medications Dose Ordered Sig/Maru Route Start Time Stop Time Status Last Admin Dose Admin Ketorolac Tromethamine 30 mg ONCE ONCE IVP 12/01/20 21:00 12/01/20 21:01 DC 12/01/20 20:59 30 MG Ondansetron HCl 4 mg ONCE ONCE IVP 12/01/20 21:00 12/01/20 21:01 DC 12/01/20 20:59 4 MG Vital Signs/I&O 12/01/20 19:43 Temp 36.5 Pulse 67 Resp 18 B/P (MAP) 128/84 (99) Pulse Ox 99 O2 Delivery Room Air Blood Pressure Mean: 99 Progress Progress Note : Time: 21:16 Progress Note I have seen and evaluated the patient. I have informed her of her laboratory and imaging studies. She is feeling better and is no longer experiencing pain or nausea after medication. She agrees with plan of care, plans for discharge, return precautions were given. Departure Impression Primary Impression: Abdominal pain Disposition: HOME, SELF-CARE Condition: Stable/Unchanged Departure-Patient Inst. Decision time for Depature: 21:18 Referrals: JF BOYKIN (PCP/Family) Primary Care Physician Patient Instructions: Severe Abdominal Pain, Adult (DC) Add. Discharge Instructions: You may use ibuprofen and Tylenol as needed for pain relief. Drink plenty of fluids and eat a bland diet and advance as tolerated. Follow-up with your primary care provider within 1 week for recheck. Return back to the emergency room for worsening symptoms or concerns as needed. All discharge instructions reviewed with patient and/or family. Voiced understanding. OLU PHAN Dec 01, 2020 21:08
[2020-12-01 21:26] VITALS: BP 125/79
== END 2020-12-01 21:27 | disposition home or self-care (01) ==
LOC: EDUNIT# 19:18 → ER 19:20
DX: R10.12 Left upper quadrant pain (principal); F17.290 Nicotine dependence, other tobacco product, uncomplicated; Z88.1 Allergy status to other antibiotic agents
CPT/HCPCS: 36415; 74177; 80053; 81000; 82150; 83690; 84703; 85025

== ENCOUNTER → 2021-01-26 | Outpatient (CLI) | payer BC ==
[~2021-01-26] MED LIST changes: +FLUO90CA4; +ONDA4TAB11
--- NOTE | 2021-01-26 15:28 | Diagnostic Imaging Report ---
PROCEDURE: Pelvic comp/transvaginal sonogram. TECHNIQUE: Complete transabdominal and transvaginal pelvic ultrasound was performed. In addition, limited pelvic Doppler was performed. INDICATION: Dyspareunia. Uterus is anteverted measuring 9.4 x 4.9 x 8.0 cm. Endometrium is 7 mm in thickness. No myometrial mass is detected. Right ovary measures 3.2 x 2.0 x 3.6 cm and left ovary measures 4.0 x 3.1 x 3.5 cm. The right ovary contains an approximately 2.9 cm cyst. Left ovary contains a 2.0 cm cyst. There is blood flow to the ovaries. No free fluid is detected. IMPRESSION: Small bilateral ovarian cysts. No other significant abnormality is detected. Dictated by: Dictated on workstation # [id number]
== END ==
LOC: RAD 12:00
PROVIDERS: ATTEND Obstetrics & Gynecology
DX: N83.202 Unspecified ovarian cyst, left side (principal); N83.201 Unspecified ovarian cyst, right side
CPT/HCPCS: 76830; 76856

== ENCOUNTER 2021-03-19 05:31 | Outpatient (CLI) | payer BC ==
[~2021-03-19] VITALS: Ht 167.6 cm; Wt 84.1 kg
== END 2021-03-19 12:08 | disposition home or self-care (01) ==
LOC: PREOP 05:31
PROVIDERS: ATTEND Obstetrics & Gynecology
DX: Z01.818 Encounter for other preprocedural examination (principal)

== ENCOUNTER 2021-03-23 06:53 | Day surgery (SDC) | payer BC ==
[~2021-03-23] VITALS: Ht 167.6 cm; Wt 84.1 kg
[2021-03-23] VITALS (10 sets, daily range): BP systolic 103–123; BP diastolic 55–86
[2021-03-23] MEDS ORDERED: metroNIDAZOLE 500MG/100ML IVPB 100 ML IV ONE (07:15)
[2021-03-23] MEDS ORDERED: ceFAZolin 2 GM IV Premixed 50 ML IV ONE (07:15)
--- NOTE | 2021-03-23 07:19 | Progress Note-Pre Operative ---
Pre-Operative Progress Note H&P Reviewed The H&P was reviewed, patient examined and no changes noted. Date Seen by Provider: Mar 23, 2021 Time Seen by Provider: 07:15 Date H&P Reviewed: Mar 23, 2021 Time H&P Reviewed: 07:15 Pre-Operative Diagnosis: AUB- Menorrhagia KAUSHAL LICONA DO Mar 23, 2021 07:19
[2021-03-23] MEDS: LACTATED RINGERS 1,000 ML IV PRN ×2 (07:21→10:42)
[2021-03-23] MEDS ORDERED: BUPIVACAINE 0.25% 30 ML (SENSORCAINE) VIAL ONE (07:39)
[2021-03-23] MEDS ORDERED: ROCURONIUM 10 MG/ML 5 ML SYRINGE IV ONE (07:44)
[2021-03-23] MEDS ORDERED: MIDAZOLAM 2 MG/2 ML (VERSED) VIAL ONE (07:44)
[2021-03-23] MEDS ORDERED: SEVOFLURANE (ULTANE) 15 ML INHAL SOLN ONE ×4 (07:44→10:06)
[2021-03-23] MEDS ORDERED: LIDOCAINE PF 2% 5 ML (XYLOCAINE) VIAL ONE (07:44)
[2021-03-23] MEDS ORDERED: ONDANSETRON 4 MG/2 ML (SDV) Z0FRAN ONE ×2 (07:44→10:53)
[2021-03-23] MEDS ORDERED: proPOfol 200 MG/20 ML (DIPRIVAN) VIAL IV ONE (07:44)
[2021-03-23] MEDS ORDERED: fentaNYL INJ 100 MCG/2 ML AMP ONE ×2 (07:44→09:48)
[2021-03-23 07:45] LABS: BASOPHILS # (AUTO) 0.1 10^3/uL (0.0-0.1); BASOPHILS % (AUTO) 1 % (0-10); EOSINOPHILS # (AUTO) 0.1 10^3/uL (0.0-0.3); EOSINOPHILS % (AUTO) 2 % (0-10); HEMATOCRIT 44 % (35-52); HEMOGLOBIN 14.6 g/dL (11.5-16.0); LYMPHOCYTES # (AUTO) 1.6 10^3/uL (1.0-4.0); LYMPHOCYTES % (AUTO) 27 % (12-44); MEAN CORPUSCULAR HEMOGLOBIN 30 pg (25-34); MEAN CORPUSCULAR HGB CONC 33 g/dL (32-36); MEAN CORPUSCULAR VOLUME 91 fL (80-99); MEAN PLATELET VOLUME 10.3 fL (9.0-12.2); MONOCYTES # (AUTO) 0.3 10^3/uL (0.0-1.0); MONOCYTES % (AUTO) 5 % (0-12); NEUTROPHILS # (AUTO) 3.9 10^3/uL (1.8-7.8); NEUTROPHILS % (AUTO) 65 % (42-75); PLATELET COUNT 229 10^3/uL (130-400); WHITE BLOOD COUNT 5.9 10^3/uL (4.3-11.0)
[2021-03-23] MEDS ORDERED: ZOLPIDEM 5 MG (AMBIEN) TAB PO PRN (08:30)
[2021-03-23] MEDS ORDERED: ANTACID SUSP 30 ML UDC (MYLANTA) PO PRN (08:30)
[2021-03-23] MEDS ORDERED: HYDROcodone/APAP 7.5 MG/325 MG (LORTAB, LORCET PLUS) TABLET PO PRN (08:30)
[2021-03-23] MEDS ORDERED: CHLORASEPTIC LOZENGE MM PRN (08:30)
[2021-03-23] MEDS ORDERED: ONDANSETRON 4 MG/2 ML (SDV) Z0FRAN IV PRN (08:30)
[2021-03-23] MEDS ORDERED: SIMETHICONE 80 MG (MYLICON) CHEW PO PRN (08:30)
[2021-03-23] MEDS ORDERED: DOCUSATE SODIUM 100 MG (COLACE) CAP PO PRN (08:30)
--- NOTE | 2021-03-23 08:30 | Discharge Inst-Women's Service ---
Discharge Inst-Women's Serv Depart Medication/Instructions New, Converted or Re-Newed RX: RX on Chart Problems Reviewed?: Yes Consults/Follow Up Additional Follow Up: Yes Orders/Referrals Dr. Lincoln in 7-10 days and in 8 weeks Activity Activity: Activity as Tolerated Driving Instructions: No Driving for 1 Week NO SMOKING: NO SMOKING Nothing Inside Vagina: No Douching, No [place], No Tampons Diet Discharge Diet: No Restrictions Symptoms to Report to : Bleeding Excessive, Pain Increased, Fever Over 101 Degrees F, Vaginal Bleeding Increase, Questions/Concerns For Any Problems or Questions: Contact Your Physician Skin/Wound Care Infection Signs and Symptoms: Increased Redness, Foul Odor of Wound, Increased Drainage, Skin Itchy or Has a Rash, Increased Swelling, Temperature Above 101 F Operative Area Clean and Dry: Keep Incision Clean/Dry Stitches/Julian/Dermabond: Dermabond, Care of Stitches Bathing Instructions: KAUSHAL Olivera DO Mar 23, 2021 08:30
[2021-03-23] MEDS ORDERED: HYDR-34 PO (08:31)
[2021-03-23] MEDS ORDERED: DCS100C PO (08:31)
[2021-03-23] MEDS ORDERED: IBUP-844 PO (08:31)
[2021-03-23] MEDS: LACTATED RINGERS 1,000 ML IV SCH ×2 (09:35→14:27)
[2021-03-23] MEDS ORDERED: NEOSTIGMINE 3 MG/3 ML VIAL ONE (10:15)
[2021-03-23] MEDS ORDERED: GLYCOPYRROLATE 0.2 MG/ML (ROBINUL) 2 ML VIAL ONE (10:15)
[2021-03-23] MEDS ORDERED: SUGAMMADEX 500 MG/5 ML VIAL (BRIDION) IV ONE (10:23)
[2021-03-23] MEDS ORDERED: HYDROmorphone 2 MG/ML VIAL (DILAUDID) IV ONE (10:30)
[2021-03-23] MEDS ORDERED: MEPERIDINE (DEMEROL) INJ 50 MG/ML IVP ONE (10:30)
[2021-03-23] MEDS ORDERED: morphine INJ 10 MG/ML 1ML (SYR OR VIAL) IVP ONE (10:30)
[2021-03-23] MEDS ORDERED: fentaNYL INJ 100 MCG/2 ML AMP IVP ONE (10:30)
[2021-03-23] MEDS ORDERED: KETOROLAC 30 MG/ML VIAL IVP ONE (10:30)
[2021-03-23] MEDS ORDERED: MEPERIDINE (DEMEROL) INJ 50 MG/ML ONE (10:31)
[2021-03-23] MEDS ORDERED: KETOROLAC 30 MG/ML VIAL ONE (10:39)
[2021-03-23] MEDS: KETOROLAC 30 MG/ML VIAL IV PRN ×2 (10:43→16:19)
[2021-03-23] MEDS ORDERED: morphine INJ 10 MG/ML 1ML (SYR OR VIAL) ONE (10:49)
--- NOTE | 2021-03-23 17:45 | OPERATIVE REPORT ---
DATE OF SERVICE: PREOPERATIVE DIAGNOSES: 1. A 31-year-old female with abnormal uterine bleeding. 2. Dysmenorrhea. POSTOPERATIVE DIAGNOSES: 1. A 31-year-old female with abnormal uterine bleeding. 2. Dysmenorrhea. PROCEDURES PERFORMED: Robotic-assisted total laparoscopic hysterectomy with right salpingectomy. SURGEON: Edward Licona DO. ANESTHESIA: General endotracheal. ESTIMATED BLOOD LOSS: Minimal. URINE OUTPUT: 100 mL clear at the end of the procedure. FLUIDS: 1000 mL lactated Ringer solution. FINDINGS: A slightly bulky and hyperemic uterus with filmy adhesions of the omentum to the serosal surface of the uterus as well as the serosal surface of the left fallopian tube and adnexa and ovary creating one scarred complex on the left side. SPECIMEN SENT: Uterus cervix and right sided fallopian tube. INDICATIONS FOR PROCEDURE: This 31-year-old female is a patient, who had sought care in my office. She has been a longstanding patient of mine, who have been dealing with heavy painful periods for quite some time. We have tried conservative measures including an IUD and hormonal control using oral contraceptive pills all without any kind of improvement. The patient was also reporting some pain with intercourse and extremely painful periods that are causing her to miss work. Due to failure of conservative measures, the patient was wishing to proceed with hysterectomy. Risks of this procedure were discussed with the patient in detail including risk of bleeding, infection, damage to surrounding structures including, but not limited to bowel, bladder, ureter, kidneys, possible need for operation, postoperative complications that could occur, risk from anesthesia and even . After everything was discussed with the patient in detail, consent was obtained, the patient was taken to the operating room. OPERATIVE REPORT IN DETAIL: Once in the operating room, general anesthesia was found to be adequate. She was placed in in dorsal lithotomy position, prepped and draped in normal sterile fashion. A timeout was performed. Herron catheter was placed using sterile technique. A weighted speculum was inserted to the patient's vagina. Right angle retractor was used to visualize the cervix. A 0 Vicryl suture was placed in the anterior lip of the cervix and used as retraction. I then gently sound the uterine cavity, depth was found to be 8 cm. I selected an 8 cm Ada uterine manipulator tip and a 4 cm colpotomy ring. I advanced the manipulator tip into the uterus deploying the balloon, advanced colpotomy ring around the vaginal fornix after which bimanual manipulation is appreciated on exam. I then removed all the other instruments from the patient's vagina, performed change of gloves, I turned my attention to the abdomen where infraumbilically I infiltrated this area using 0.25% Marcaine. I made an 8 mm incision with a knife and directed Veress needle through the incision until intraperitoneal placement was confirmed using saline drop test; however, when I began insufflation, I was unable to obtain an adequate pressure. It is over pressure approximately 17 mmHg. Therefore, I went subcostal at the midclavicular line with a Veress needle and introduced this through the skin there until intraperitoneal placement was confirmed using saline drop test. An opening pressure using CO2 gas was noted of 2 mmHg. I proceeded to max pressure of 15 mmHg, at which point, I placed an 8 mm laparoscopic da Iza camera trocar in the infraumbilical trocar site and I was able to confirm intraperitoneal placement using the da Iza laparoscope as well as confirmed no damage upon entry of the Veress needle in the left upper quadrant, at which point I removed the Veress needle. I then have the patient placed in a steep Trendelenburg after briefly scanning the upper abdominal anatomy, which appears grossly normal. Once in steep Trendelenburg, I was able to visualize all my pelvic anatomy was defined in my findings above. I placed two 8 mm trocars approximately 8 cm lateral to my infraumbilical trocar. Once both these trocars were in place, I brought in the da Iza robot and docked it in appropriate fashion. Starting with the vessel sealer in the left hand and monopolar umang in the right hand, I took down the filmy adhesions of the omentum to the serosal surface of the uterus and the left adnexa. There was some involvement of the descending sigmoid to the left adnexa. Therefore, I stopped my dissection at that point as I did not want to encounter bowel injury and her ovaries did not seem to be her chronic problem. On the left side, I started at the uteroovarian ligament, which I sealed and transected using vessel sealer. I grasped the round ligament and fallopian tube, transecting the fallopian tube and the round ligament and sealing it as I go. I then grasped the entire broad ligament, which I bipolar cauterized, sealed and transected using the vessel sealer to the point of the lower uterine segment, at which point, I the anterior and posterior leaflets of the broad ligament. Anterior leaflet was taken around to the anterior vaginal fornix and posterior leaflet was taken around the posterior vaginal fornix. This allows me to skeletonize the uterine vessels laterally, which I bipolar cauterized, sealed and transected using the vessel sealer. On the right side, I created a window in the mesosalpinx using monopolar umang and then transected the mesosalpinx and fallopian tube laterally and distally. I amputated fallopian tube from its surrounding blood supply. I then grasped the uteroovarian ligament, which I bipolar cauterized, sealed and transected using vessel sealer. I similarly grasped the round ligament, which I sealed and transected with the vessel sealer. I then grasped the entire broad ligament, which I bipolar cauterized, transected and sealed down to the level of the lower uterine segment, at which point, I the anterior and posterior leaflets of the broad ligament. The anterior leaflet dissection was taken around to the anterior vaginal fornix and the posterior leaflet was taken around to the posterior vaginal fornix. Again, this allows me to skeletonize the uterine vessels laterally, which I bipolar cauterized, sealed and transected using the vessel sealer. I then created a colpotomy at 12 o'clock position using monopolar umang and took this circumferentially around the vaginal fornix amputating the cervix away from the surrounding vagina. The entire specimen was then removed through the vagina. I then closed the lateral vaginal apices of the vaginal cuff using 2-0 Vicryl suture in a [id number] fashion colposuspending them to the uterosacral ligaments. I closed the remainder of the vaginal cuff using 2-0 V-Loc in a running fashion, after which there was no active bleeding noted from any of my dissection planes. I then undocked the da Iza robot and proceeded with the remainder of the case laparoscopically. I copiously irrigated the pelvis using normal saline. There was no active bleeding noted from any of my dissection planes. I placed Surgiflo hemostatic agent over all my planes of dissection. I have the patient taken out of steep Trendelenburg, where I am able to visualize the removal of the lateral trocars. The infraumbilical trocar was left in place to release insufflation and introduced 10 mL of 0.25% Marcaine into peritoneal cavity for postoperative pain management. I then removed this trocar as well. The skin was reapproximated using 4-0 Monocryl in interrupted subcuticular stitches. Dermabond was applied to incision and Band-Aids were placed over the incisions as well. Herron catheter was left in place. The patient tolerated the procedure well and was taken to the recovery area in stable condition. Lap and sponge counts were correct at the end of procedure. Instrument count was correct as well. Two grams of Ancef, 500 mg of Flagyl were given preoperatively for infection prophylaxis. Job ID: [id number] DocumentID: [id number] Dictated Date: 03/23/2021 12:02:59 Compliance Engineer Date: 03/23/2021 17:44:38 Dictated By: EDWARD LICONA DO
[2021-03-24] MEDS ORDERED: IBUPROFEN 600 MG (MOTRIN) TAB PO SCH (01:15)
--- NOTE | 2021-03-24 09:06 | Anesthesia-General Post-Op ---
General Patient Condition Mental Status/LOC: Same as Preop Cardiovascular: Satisfactory Nausea/Vomiting: Absent Respiratory: Satisfactory Pain: Controlled Complications: Absent Post Op Complications Complications None Follow Up Care/Instructions Patient Instructions None needed. Anesthesia/Patient Condition Patient Condition Patient is doing well, no complaints, stable vital signs, no apparent adverse anesthesia problems. No complications reported per nursing. D/C home per [facility] [place] Criteria: Yes CARRIE JOSUE CRNA Mar 24, 2021 09:06
== END 2021-03-23 20:35 ==
LOC: SDC 06:53 → WS 11:25 → SDC 20:35
PROVIDERS: ATTEND Obstetrics & Gynecology
DX: D28.2 Benign neoplasm of uterine tubes and ligaments (principal); N72 Inflammatory disease of cervix uteri; J44.9 Chronic obstructive pulmonary disease, unspecified; G43.909 Migraine, unspecified, not intractable, without status migrainosus; F32.9 Major depressive disorder, single episode, unspecified; E66.01 Morbid (severe) obesity due to excess calories; Z68.29 Body mass index [BMI] 29.0-29.9, adult; Z79.899 Other long term (current) drug therapy; Z87.891 Personal history of nicotine dependence
CPT/HCPCS: 36415; 84703; 85025; 86850; 86900; 86901; 87081; 88307; 94664

== ENCOUNTER 2021-06-06 09:08 | Emergency (ER) | payer BC ==
[~2021-06-06] VITALS: Ht 167.7 cm; Wt 81.6 kg
[~2021-06-06 09:08] MED LIST changes: +HYDR-34 PO; +LANS15CA18 PO; -LANS15CA21 PO
--- NOTE | 2021-06-06 09:33 | ED Headache ---
General Stated Complaint: L SIDED VISION LOSS, FACIAL /EXT NUMBNESS,DAILY Source: patient Exam Limitations: no limitations History of Present Illness Date Seen by Provider: Jun 06, 2021 Time Seen by Provider: 09:20 Initial Comments Patient is a 31-year-old female who presents to the emergency room today with a chief complaint of headache, onset Friday of this week. At about 730 this morning noticed that she was having visual difficulties, change in visual allan with black spots in her vision. Hard to describe the changes she was having but she states she became very agitated and concerned because she had a hard time focusing. Patient states the left side of her face went numb and she had tingling and paresthesias in her left hand and left foot. Patient states after she dropped her children off she sat in the [employer] parking lot for about 30 or 40 minutes and her symptoms improved, the headache stayed the same. She has never had anything like this before. She has been alternating Tylenol and ibuprofen to try and treat her headache since Friday. She states she felt a little uncoordinated as she was trying to drop her child off at kindergarten. History of a grandfather with a brain aneurysm no other family members with neurologic issues that she is aware of. No recent fevers, chills, congestion, cough, shortness of breath, chest pain, nausea vomiting or diarrhea. All other review of systems reviewed and negative except as stated. Timing/Duration: 1-3 hours Severity/Quality: severe Location: global Prior Headaches/Recent Trauma: occasional headaches Associated Symptoms: confusion, numbness in legs/feet (paresthesia, left hand and foot; numbness to left face) Allergies and Home Medications Allergies Coded Allergies: azithromycin (Unverified Adverse Reaction, Mild, N/V, 04/01/19) Home Medications Docusate Sodium 100 Mg Capsule, 100 MG PO BID PRN for CONSTIPATION-1ST LINE Prescribed by: KAUSHAL LICONA on 03/23/21830 Fluoxetine HCl 90 Mg Capsule., 1 CAP Q 7 DAYS, (Reported) Hydrocodone Bit/Acetaminophen 1 Ea Tablet, 2 EA PO Q6H PRN for Pain-See Instructions Prescribed by: KAUSHAL LICONA on 03/23/21830 Ibuprofen 600 Mg Tablet, 600 MG PO Q6H Prescribed by: KAUSHAL LICONA on 03/23/21830 Patient Home Medication List Home Medication List Reviewed: Yes Review of Systems Review of Systems Constitutional: see HPI Eyes: Blurred Vision, Vision Changes Ears, Nose, Mouth, Throat: no symptoms reported Respiratory: no symptoms reported Cardiovascular: no symptoms reported Gastrointestinal: no symptoms reported Genitourinary: no symptoms reported : No Musculoskeletal: no symptoms reported Skin: no symptoms reported Psychiatric/Neurological: Headache, Numbness, Paresthesia Past Vfqftsy-Gtqjix-Kjroap Hx Immunizations Up To Date Tetanus Booster (TDap): Unknown PED Vaccines UTD: Yes Seasonal Allergies Seasonal Allergies: Yes Past Medical History Surgeries: Yes Section, Gallbladder, Tonsillectomy, 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 Respiratory: No Currently Using CPAP: No Currently Using BIPAP: No Cardiac: No Hypertension Neurological: Yes Concussion, Headaches /Migraines Reproductive Disorders: No 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 No Pertinent Family Hx Physical Exam Vital Signs Vital Signs - First Documented 06/06/21 09:15 Temp 36.0 Pulse 71 Resp 24 B/P (MAP) 125/84 (98) Pulse Ox 100 Capillary Refill : Height, Weight, BMI Height: 5'7.00" Weight: 265lbs. 9.8oz. [id number]; 29.93 BMI Method:Stated General Appearance: WD/WN, no apparent distress HEENT: PERRL/EOMI, normal ENT inspection Neck: full range of motion, supple, other (no carotid bruits) Cardiovascular: regular rate, rhythm Respiratory: lungs clear, normal breath sounds, no respiratory distress, no accessory muscle use Gastrointestinal: normal bowel sounds, non tender, soft Extremities: normal range of motion, non-tender, normal inspection, no pedal edema, no calf tenderness Psychiatric: alert, oriented x 3 Crainal Nerves: normal hearing, normal speech, PERRL; No abnormal eye position, No abnormal speech, No facial droop, No facial paresthesias, No facial weakness, No tongue deviation to R, No tongue deviation to L Coordination/Gait: normal finger to nose, negative Romberg's sign Motor/Sensory: no motor deficit, no sensory deficit, pronator drift (L) (hint of pronator drift on the left) Skin: normal color, warm/dry Progress/Results/Core Measures Results/Orders Lab Results Laboratory Tests Test 06/06/21 09:20 Range/Units White Blood Count 5.4 4.3-11.0 10^3/uL Red Blood Count 4.74 3.80-5.11 10^6/uL Hemoglobin 14.4 11.5-16.0 g/dL Hematocrit 44 35-52 % Mean Corpuscular Volume 93 80-99 fL Mean Corpuscular Hemoglobin 30 25-34 pg Mean Corpuscular Hemoglobin Concent 33 32-36 g/dL Red Cell Distribution Width 12.5 10.0-14.5 % Platelet Count 217 130-400 10^3/uL Mean Platelet Volume 10.4 9.0-12.2 fL Immature Granulocyte % (Auto) 0 % Neutrophils (%) (Auto) 62 42-75 % Lymphocytes (%) (Auto) 28 12-44 % Monocytes (%) (Auto) 6 0-12 % Eosinophils (%) (Auto) 2 0-10 % Basophils (%) (Auto) 1 0-10 % Neutrophils # (Auto) 3.4 1.8-7.8 10^3/uL Lymphocytes # (Auto) 1.5 1.0-4.0 10^3/uL Monocytes # (Auto) 0.3 0.0-1.0 10^3/uL Eosinophils # (Auto) 0.1 0.0-0.3 10^3/uL Basophils # (Auto) 0.0 0.0-0.1 10^3/uL Immature Granulocyte # (Auto) 0.0 0.0-0.1 10^3/uL Sodium Level 139 135-145 MMOL/L Potassium Level 4.0 3.6-5.0 MMOL/L Chloride Level 108 H 98-107 MMOL/L Carbon Dioxide Level 23 21-32 MMOL/L Anion Gap 8 5-14 MMOL/L Blood Urea Nitrogen 9 7-18 MG/DL Creatinine 0.80 0.60-1.30 MG/DL Estimat Glomerular Filtration Rate 83 BUN/Creatinine Ratio 11 Glucose Level 87 70-105 MG/DL Calcium Level 9.8 8.5-10.1 MG/DL My Orders Orders - GIOVANNI ELLER MD Ed Iv/Invasive Line Start (06/06/21 09:33) Cbc With Automated Diff (06/06/21 09:33) Basic Metabolic Panel (06/06/21 09:33) Ct Angio Head W Wo (06/06/21 09:34) Ketorolac Injection (Toradol Injection) (06/06/21 09:45) Iohexol Injection (Omnipaque 350 Mg/Ml 1 (06/06/21 09:45) Received Contrast (Hold Metformin- Contr (06/06/21 09:45) Ns (Ivpb) (Sodium Chloride 0.9% Ivpb Bag (06/06/21 09:45) Medications Given in ED Current Medications Medications Dose Ordered Sig/Maru Route Start Time Stop Time Status Last Admin Dose Admin Iohexol 100 ml ONCE ONCE IV 06/06/21 09:45 06/06/21 09:46 DC 06/06/21 09:51 75 ML Ketorolac Tromethamine 15 mg ONCE ONCE IVP 06/06/21 09:45 06/06/21 09:46 DC 06/06/21 09:43 15 MG Sodium Chloride 100 ml ONCE ONCE IV 06/06/21 09:45 06/06/21 09:46 DC 06/06/21 09:51 80 ML Vital Signs/I&O 06/06/21 09:15 Temp 36.0 Pulse 71 Resp 24 B/P (MAP) 125/84 (98) Pulse Ox 100 Progress Progress Note : Time: 10:34 Progress Note Patient reevaluated feels about the same no significant improvement in her headache. CTA and CT noncontrast were read as normal except for a small left thyroid nodule of 11 mm that will need outpatient follow-up on a nonemergent basis with thyroid ultrasound. I talked to the patient about her results, she is comfortable and relieved with normal findings. She follows up with Shonda keys, nurse practitioner. I advised her to call for a follow-up appointment and to return to the emergency room if she has any recurrence of symptoms. Encouraged fluids, Tylenol and ibuprofen. Patient is comfortable with this plan of care. All questions are sought and answered. Patient is stable for discharge. Departure Impression Primary Impression: Headache Qualified Codes: G44.59 - Other complicated headache syndrome Disposition: HOME, SELF-CARE Condition: Stable Departure-Patient Inst. Decision time for Depature: 10:36 Referrals: NO,LOCAL PHYSICIAN (PCP) Primary Care Physician JF BOYKIN (Family) Primary Care Physician Patient Instructions: Headache, Adult (DC) Add. Discharge Instructions: Drink plenty of fluids to stay well-hydrated. Get good rest and nutrition. Alternate ibuprofen 600 mg with [id number]-[id number] extra strength Tylenol as needed for headache. Return to the emergency room for any recurrence of symptoms or worsening symptoms. Please call your primary care provider today and schedule a follow-up appointment. You will need an outpatient thyroid ultrasound to further evaluate a thyroid nodule that was noticed on CAT scan on the left side of your thyroid gland. GIOVANNI ELLER MD Jun 06, 2021 09:33
[2021-06-06] MEDS ORDERED: HOLD METFORMIN - RECEIVED CONTRAST 20 ML VIAL IV SCH (09:45)
[2021-06-06] MEDS ORDERED: KETOROLAC 30 MG/ML VIAL IVP ONE (09:45)
[2021-06-06] MEDS ORDERED: NS 100 ML (IVPB) BAG IV ONE (09:45)
[2021-06-06] MEDS ORDERED: IOHEXOL 350 MG/ML 100 ML (OMNIPAQUE 350) VIAL IV ONE (09:45)
[2021-06-06 10:00] LABS: BASOPHILS % (AUTO) 1 % (0-10); EOSINOPHILS # (AUTO) 0.1 10^3/uL (0.0-0.3); EOSINOPHILS % (AUTO) 2 % (0-10); HEMATOCRIT 44 % (35-52); HEMOGLOBIN 14.4 g/dL (11.5-16.0); LYMPHOCYTES # (AUTO) 1.5 10^3/uL (1.0-4.0); LYMPHOCYTES % (AUTO) 28 % (12-44); MEAN CORPUSCULAR HEMOGLOBIN 30 pg (25-34); MEAN CORPUSCULAR HGB CONC 33 g/dL (32-36); MEAN CORPUSCULAR VOLUME 93 fL (80-99); MEAN PLATELET VOLUME 10.4 fL (9.0-12.2); MONOCYTES # (AUTO) 0.3 10^3/uL (0.0-1.0); MONOCYTES % (AUTO) 6 % (0-12); NEUTROPHILS # (AUTO) 3.4 10^3/uL (1.8-7.8); NEUTROPHILS % (AUTO) 62 % (42-75); PLATELET COUNT 217 10^3/uL (130-400); WHITE BLOOD COUNT 5.4 10^3/uL (4.3-11.0)
[2021-06-06 10:13] LABS: CALCIUM 9.8 MG/DL (8.5-10.1)
[2021-06-06 10:17] LABS: CREATININE SERUM 0.8 MG/DL (0.60-1.30)
--- NOTE | 2021-06-06 10:25 | Diagnostic Imaging Report ---
CLINICAL INDICATION: Patient with left side of face numbness and left-sided blurry vision. Patient has acute headache. Patient has had a hysterectomy. EXAMS: 1: Head CT with and without IV contrast. Auto Exposure Controls were utilized during the CT exam to meet ALARA standards for radiation dose reduction. 2: CT angiogram of the head and neck performed with 100 cc of Omnipaque 350 IV contrast. Sagittal and coronal MIP reformations were created for better visualization of vascular anatomy. CT angiogram was post-processed using RAPID LVO detection to include quantitative measurements of cerebral blood flow and automated results notification to the stroke and/or neurointerventional team. COMPARISON: None. FINDINGS: There is no evidence of acute cerebral infarct, intracranial hemorrhage, or gross mass effect. There is no abnormal IV contrast enhancement. The brain parenchymal volume appears appropriate for patient's age. There is normal villafana-white matter distinction. There is no significant midline shift or herniation. There is no evidence of hydrocephalus. The basal cisterns are unremarkable. The skull, extracranial soft tissue, and orbits are unremarkable. The paranasal sinuses are unremarkable. Temporal bones show no significant abnormality. CT Angiogram: There is dense contrast within the left subclavian vein, which obscures portions of the aortic arch. There is common origin of the brachiocephalic artery and left common carotid consistent with bovine arch. The brachiocephalic artery and bilateral subclavian arteries are patent. There is streak and motion artifact obscuring the proximal bilateral common carotid arteries. Otherwise, the bilateral common carotid arteries are patent. The bilateral cervical ICA and ECA are patent. The bilateral cervical vertebral arteries are patent. Slightly dominant left vertebral artery is seen. The bilateral PICA, intradural bilateral vertebral arteries, basilar artery, bilateral superior cerebellar arteries, and bilateral ENVIRONMENT ARTIST are patent. Small-caliber bilateral posterior communicating arteries are seen. The bilateral petrous, cavernous, and supraclinoid ICA are patent. Likely small vascular infundibulum involving the posterior aspects of the supraclinoid ICA which measured 2 mm or less in size. The bilateral ACAs and distal branches and bilateral MCAs and distal branches are patent. The dural venous sinuses are patent. There is an 11 mm heterogeneous hyperdense nodule involving the posterior aspect of the left thyroid lobe. Otherwise, neck soft tissue structures show no significant abnormality. Visualized upper lung allan are clear. Cervical spine shows no significant abnormality. IMPRESSION: 1: Unremarkable CT scan of the brain. 2: Unremarkable CT angiogram of the unga of Vickers and neck, as visualized. 3: There is an 11 mm nodule involving the left thyroid lobe. Nonemergent thyroid ultrasound would better evaluate. Results of this report were discussed with Dr. Fanta Agarwal via the telephone on 06/06/2021 at 1015 hours. Dictated by: Dictated on workstation # [id number]
[2021-06-06 10:51] VITALS: BP 108/73
== END 2021-06-06 10:51 | disposition home or self-care (01) ==
LOC: EDUNIT# 09:08 → ER 09:10
DX: R51.9 Headache, unspecified (principal); I10 Essential (primary) hypertension; F41.9 Anxiety disorder, unspecified; F32.9 Major depressive disorder, single episode, unspecified; Z87.820 Personal history of traumatic brain injury; Z79.899 Other long term (current) drug therapy
CPT/HCPCS: 36415; 70496; 80048; 85025

== ENCOUNTER 2022-06-03 17:20 | Emergency (ER) | payer BC ==
[~2022-06-03] VITALS: Ht 170 cm; Wt 95.0 kg
[~2022-06-03 17:20] MED LIST changes: +CYCL10TA25 PO; -CYCL10TA9 PO; +DOCU-239 PO
--- NOTE | 2022-06-03 17:47 | ED Abdominal Pain ---
General Chief Complaint: Rect Problems Stated Complaint: CONSTIPATION Source of Information: Patient Exam Limitations: No Limitations History of Present Illness Date Seen by Provider: Jun 03, 2022 Time Seen by Provider: 17:47 Allergies and Home Medications Allergies Coded Allergies: azithromycin (Unverified Adverse Reaction, Mild, N/V, 04/01/19) Patient Home Medication List Docusate Sodium (Dok) 100 Mg Capsule, 100 MG PO BID PRN for CONSTIPATION-1ST LINE Prescribed by: KAUSHAL LICONA on 03/23/21830 Fluoxetine HCl (Fluoxetine Dr) 90 Mg Capsule.dr, 1 CAP Q 7 DAYS, (Reported) Entered as Reported by: ONOFRE PIERRE on 12/01/201951 Hydrocodone Bit/Acetaminophen (HYDROcodone/APAP 7.5/325 TAB) 1 Ea Tablet, 2 EA PO Q6H PRN for Pain-See Instructions Prescribed by: KAUSHAL LICONA on 03/23/21830 Ibuprofen (Ibu) 600 Mg Tablet, 600 MG PO Q6H Prescribed by: KAUSHAL LICONA on 03/23/21830 Past Idfcqqs-Ctvlmq-Feuqab Hx Immunizations Up To Date Tetanus Booster (TDap): Unknown PED Vaccines UTD: Yes First/Initial COVID19 Vaccinat: MARCH Second COVID19 Vaccination Juan Antonio: APRIL Seasonal Allergies Seasonal Allergies: Yes Past Medical History Surgeries: Yes Section, Gallbladder, Tonsillectomy, 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 Respiratory: No Currently Using CPAP: No Currently Using BIPAP: No Cardiac: No Hypertension Neurological: Yes Concussion, Headaches /Migraines Reproductive Disorders: No Female 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 No Pertinent Family Hx Physical Exam Vital Signs Vital Signs - First Documented 06/03/22 17:35 Temp 37.3 Pulse 68 Resp 16 B/P (MAP) 138/71 (93) Pulse Ox 99 O2 Delivery Room Air Capillary Refill : Height/Weight/BMI Height: 5'7.00" Weight: 265lbs. 9.8oz. 120.284318ls; 29.00 BMI Method:Stated Progress/Results/Core Measures Results/Orders Lab Results Laboratory Tests Test 06/03/22 18:40 Range/Units White Blood Count 10.2 4.3-11.0 10^3/uL Red Blood Count 4.52 3.80-5.11 10^6/uL Hemoglobin 13.7 11.5-16.0 g/dL Hematocrit 40 35-52 % Mean Corpuscular Volume 89 80-99 fL Mean Corpuscular Hemoglobin 30 25-34 pg Mean Corpuscular Hemoglobin Concent 34 32-36 g/dL Red Cell Distribution Width 12.5 10.0-14.5 % Platelet Count 225 130-400 10^3/uL Mean Platelet Volume 10.1 9.0-12.2 fL Immature Granulocyte % (Auto) 0 % Neutrophils (%) (Auto) 71 42-75 % Lymphocytes (%) (Auto) 23 12-44 % Monocytes (%) (Auto) 4 0-12 % Eosinophils (%) (Auto) 1 0-10 % Basophils (%) (Auto) 1 0-10 % Neutrophils # (Auto) 7.3 1.8-7.8 10^3/uL Lymphocytes # (Auto) 2.3 1.0-4.0 10^3/uL Monocytes # (Auto) 0.4 0.0-1.0 10^3/uL Eosinophils # (Auto) 0.1 0.0-0.3 10^3/uL Basophils # (Auto) 0.1 0.0-0.1 10^3/uL Immature Granulocyte # (Auto) 0.0 0.0-0.1 10^3/uL Sodium Level 139 135-145 MMOL/L Potassium Level 3.9 3.6-5.0 MMOL/L Chloride Level 107 98-107 MMOL/L Carbon Dioxide Level 24 21-32 MMOL/L Anion Gap 8 5-14 MMOL/L Blood Urea Nitrogen 13 7-18 MG/DL Creatinine 0.80 0.60-1.30 MG/DL Estimat Glomerular Filtration Rate 100 BUN/Creatinine Ratio 16 Glucose Level 84 70-105 MG/DL Calcium Level 9.2 8.5-10.1 MG/DL Corrected Calcium 9.0 8.5-10.1 MG/DL Total Bilirubin 0.5 0.1-1.0 MG/DL Aspartate Amino Transf (AST/SGOT) 17 5-34 U/L Alanine Aminotransferase (ALT/SGPT) 17 0-55 U/L Alkaline Phosphatase 42 40-136 U/L Total Protein 7.0 6.4-8.2 GM/DL Albumin 4.3 3.2-4.5 GM/DL My Orders Orders - APRIL CAMEJO APRN Ketorolac Injection (Toradol Injection) (06/03/22 18:30) Cbc With Automated Diff (06/03/22 18:38) Comprehensive Metabolic Panel (06/03/22 18:38) Ct Abdomen/Pelvis W (06/03/22 18:38) Iohexol Injection (Omnipaque 350 Mg/Ml 1 (06/03/22 18:45) Received Contrast (Hold Metformin- Contr (06/03/22 18:45) Ns (Ivpb) (Sodium Chloride 0.9% Ivpb Bag (06/03/22 18:45) Medications Given in ED Current Medications Medications Dose Ordered Sig/Maru Route Start Time Stop Time Status Last Admin Dose Admin Iohexol 100 ml ONCE ONCE IV 06/03/22 18:45 06/03/22 18:46 DC 06/03/22 19:00 80 ML Ketorolac Tromethamine 30 mg ONCE ONCE IVP 06/03/22 18:30 06/03/22 18:31 DC 06/03/22 18:32 30 MG Sodium Chloride 100 ml ONCE ONCE IV 06/03/22 18:45 06/03/22 18:46 DC 06/03/22 19:00 80 ML Vital Signs/I&O 06/03/22 17:35 Temp 37.3 Pulse 68 Resp 16 B/P (MAP) 138/71 (93) Pulse Ox 99 O2 Delivery Room Air Departure Impression Primary Impression: OTHER SPECIFIED DISEASES OF ANUS AND RECTUM Disposition: 01 HOME, SELF-CARE Condition: Improved Departure-Patient Inst. Decision time for Depature: 19:52 Referrals: NO,LOCAL PHYSICIAN (PCP) Primary Care Physician JF BOYKIN (Family) Primary Care Physician Patient Instructions: Anal Fissure (DC) Add. Discharge Instructions: Plan: 1. You still have quite a bit of bowel in your colon. Recommend taking MiraLAX twice a day to help soften your stools. 2. Try to avoid straining as much as possible when having a bowel movement as this will help reduce the swelling to your rectum. 3. If you do have rectal edema you can use table sugar and apply for 15 minutes. 4. You may have some slight bleeding or streaking from excessive straining. 5. Return to ER for any new, concerning, or worsening symptoms. All discharge instructions reviewed with patient and/or family. Voiced understanding. APRIL CAMEJO BOIL OFF WORKER Jun 03, 2022 17:47
[2022-06-03] MEDS ORDERED: KETOROLAC 30 MG/ML VIAL IVP ONE (18:30)
[2022-06-03 18:44] LABS: BASOPHILS # (AUTO) 0.1 10^3/uL (0.0-0.1); BASOPHILS % (AUTO) 1 % (0-10); EOSINOPHILS # (AUTO) 0.1 10^3/uL (0.0-0.3); EOSINOPHILS % (AUTO) 1 % (0-10); HEMATOCRIT 40 % (35-52); HEMOGLOBIN 13.7 g/dL (11.5-16.0); LYMPHOCYTES # (AUTO) 2.3 10^3/uL (1.0-4.0); LYMPHOCYTES % (AUTO) 23 % (12-44); MEAN CORPUSCULAR HEMOGLOBIN 30 pg (25-34); MEAN CORPUSCULAR HGB CONC 34 g/dL (32-36); MEAN CORPUSCULAR VOLUME 89 fL (80-99); MEAN PLATELET VOLUME 10.1 fL (9.0-12.2); MONOCYTES # (AUTO) 0.4 10^3/uL (0.0-1.0); MONOCYTES % (AUTO) 4 % (0-12); NEUTROPHILS # (AUTO) 7.3 10^3/uL (1.8-7.8); NEUTROPHILS % (AUTO) 71 % (42-75); PLATELET COUNT 225 10^3/uL (130-400); WHITE BLOOD COUNT 10.2 10^3/uL (4.3-11.0)
[2022-06-03] MEDS ORDERED: IOHEXOL 350 MG/ML 100 ML (OMNIPAQUE 350) VIAL IV ONE (18:45)
[2022-06-03] MEDS ORDERED: HOLD METFORMIN - RECEIVED CONTRAST 20 ML VIAL IV SCH (18:45)
[2022-06-03] MEDS ORDERED: NS 100 ML (IVPB) BAG IV ONE (18:45)
[2022-06-03 18:55] LABS: ALBUMIN 4.3 GM/DL (3.2-4.5)
[2022-06-03 18:56] LABS: POTASSIUM 3.9 MMOL/L (3.6-5.0)
[2022-06-03 18:57] LABS: CALCIUM 9.2 MG/DL (8.5-10.1)
[2022-06-03 19:00] LABS: BILIRUBIN,TOTAL 0.5 MG/DL (0.1-1.0)
[2022-06-03 19:02] LABS: CREATININE SERUM 0.8 MG/DL (0.60-1.30)
--- NOTE | 2022-06-03 19:26 | Diagnostic Imaging Report ---
PROCEDURE: CT abdomen and pelvis with contrast. TECHNIQUE: Multiple contiguous axial images were obtained through the abdomen and pelvis after administration of intravenous contrast. Auto Exposure Controls were utilized during the CT exam to meet ALARA standards for radiation dose reduction. All CT scans use one or more of the following dose optimizing techniques: automated exposure control, MA and/or KvP adjustment based on patient size and exam type or iterative reconstruction. INDICATION: Rectal pain and bleeding. COMPARISON: CT abdomen and pelvis with IV contrast 12/01/2020. FINDINGS: The lung bases are clear. Cholecystectomy. Postoperative changes in the stomach. The liver, pancreas, spleen, adrenals, kidneys, collecting systems, bladder and appendix are negative. Hysterectomy. No free intraperitoneal air or fluid. No lymphadenopathy. No evidence of bowel obstruction. There is a large amount of stool throughout most of the colon and rectum. No acute osseous findings. IMPRESSION: 1. No acute CT findings in the abdomen or pelvis. 2. Large amount of stool throughout the colon and rectum suggesting constipation. 3. Cholecystectomy. Postoperative changes of the gastric sleeve. Dictated by: Dictated on workstation # [id number]
[2022-06-03 20:25] VITALS: BP 134/82
== END 2022-06-03 20:22 | disposition home or self-care (01) ==
LOC: EDUNIT# 17:20 → ER 17:23
DX: K62.89 Other specified diseases of anus and rectum (principal)
CPT/HCPCS: 36415; 74177; 80053; 85025

== ENCOUNTER 2022-07-29 10:58 | Emergency (ER) | payer OTHER ==
[~2022-07-29] VITALS: Ht 170.1 cm; Wt 98.4 kg
[~2022-07-29 10:58] MED LIST changes: -LABE100T6 PO; +LABE100T9 PO
[2022-07-29 11:15] VITALS: BP 122/85
[2022-07-29] MEDS ORDERED: clonazePAM 0.5 MG (KlonoPIN) TAB PO ONE (12:30)
[2022-07-29 12:32] LABS: BASOPHILS % (AUTO) 1 % (0-10); EOSINOPHILS # (AUTO) 0.3 10^3/uL (0.0-0.3); EOSINOPHILS % (AUTO) 4 % (0-10); HEMATOCRIT 40 % (35-52); HEMOGLOBIN 13.3 g/dL (11.5-16.0); LYMPHOCYTES # (AUTO) 2.1 10^3/uL (1.0-4.0); LYMPHOCYTES % (AUTO) 29 % (12-44); MEAN CORPUSCULAR HEMOGLOBIN 30 pg (25-34); MEAN CORPUSCULAR HGB CONC 33 g/dL (32-36); MEAN CORPUSCULAR VOLUME 90 fL (80-99); MONOCYTES # (AUTO) 0.4 10^3/uL (0.0-1.0); MONOCYTES % (AUTO) 6 % (0-12); NEUTROPHILS # (AUTO) 4.2 10^3/uL (1.8-7.8); NEUTROPHILS % (AUTO) 60 % (42-75); PLATELET COUNT 225 10^3/uL (130-400)
[2022-07-29 12:44] LABS: BILIRUBIN,URINE NEGATIVE (NEGATIVE); CLARITY,URINE CLEAR; COLOR,URINE YELLOW; GLUCOSE, URINE (UA) NEGATIVE (NEGATIVE); KETONES,URINE NEGATIVE (NEGATIVE); LEUKOCYTE ESTERASE ,URINE NEGATIVE (NEGATIVE); NITRITE,URINE NEGATIVE (NEGATIVE); PH,URINE 6.5 (5-9); PROTEIN,URINE NEGATIVE (NEGATIVE)
[2022-07-29 12:47] LABS: ALBUMIN 4.1 GM/DL (3.2-4.5); CHLORIDE 109 MMOL/L (98-107); POTASSIUM 4.1 MMOL/L (3.6-5.0); SODIUM 142 MMOL/L (135-145)
[2022-07-29 12:49] LABS: CALCIUM 9.2 MG/DL (8.5-10.1)
[2022-07-29 12:50] LABS: GLUCOSE 85 MG/DL (70-105); TOTAL PROTEIN 6.6 GM/DL (6.4-8.2)
[2022-07-29 12:51] LABS: CARBON DIOXIDE 23 MMOL/L (21-32)
[2022-07-29 12:52] LABS: BILIRUBIN,TOTAL 0.4 MG/DL (0.1-1.0)
[2022-07-29 12:54] LABS: ALKALINE PHOSPHATASE 41 U/L (40-136); CREATININE SERUM 0.78 MG/DL (0.60-1.30); GFR ESTIMATED 103
[2022-07-29 12:54] LABS: BACTERIA,URINE NEGATIVE /HPF; SQUAMOUS EPITHELIAL CELL,UR RARE /HPF
[2022-07-29 12:55] LABS: BUN/CREATININE RATIO 13
[2022-07-29 12:55] LABS: AMPHETAMINE SCREEN, URINE NEGATIVE (NEGATIVE); BARBITURATE SCREEN URINE NEGATIVE (NEGATIVE); BENZODIAZEPINES SCREEN URINE NEGATIVE (NEGATIVE); CANNABINOID SCREEN, URINE POSITIVE (NEGATIVE); COCAINE SCREEN URINE NEGATIVE (NEGATIVE); METHADONE STAT NEGATIVE (NEGATIVE); OPIATE SCREEN URINE NEGATIVE (NEGATIVE); OXYCODONE STAT NEGATIVE (NEGATIVE); PROPOXYPHENE STAT NEGATIVE (NEGATIVE); TRICYCLIC ANTIDEPRESSANTS SCRE NEGATIVE (NEGATIVE)
[2022-07-29 12:56] LABS: SALICYLATE < 5.0 MG/DL (5.0-20.0)
--- NOTE | 2022-07-29 13:00 | ED Psychosocial ---
General Chief Complaint: Suicidal Ideation Risk Stated Complaint: MENTAL HEALTH ISSUES Nursing Triage Note: arrives to the ED seeking help for her suicidal ideation. states she has a hx of Bipolar 2 and needed to stop her medicaton 2-3 weeks ago because it was making her blood pressure too low. currently she takes trentellix, Klonipin, and adderal* (*out for 3 days d/t shortage) daily. Her plan is to "take a bunch of pills and go to bed", She has a previous attempt in 2017 when she took a bunch of pills. Also states her "dad attempted suicide twice and failed". History of Present Illness Date Seen by Provider: Jul 29, 2022 Time Seen by Provider: 11:15 Initial Comments Patient is a 32-year-old female with a history of bipolar, depression, and formal suicidal ideation who presents to the emergency department with SI for the last several days. She states she has not attempted to harm herself although her plan initially was to intentionally ingest a large amount of her pills in an attempt to harm herself. She states that she does have a history of psychiatric admission and has attempted suicide by taking pills in the past. She denies any homicidal ideation or audiovisual hallucination. She states that she was recently placed on several medicines for her psychiatric illness but these had to be stopped due to them causing her blood pressure to be too low. Patient does see a therapist. Her psychiatric medications are managed by her PCP. She denies any drug use outside of some intermittent cannabis use. Allergies and Home Medications Allergies Coded Allergies: azithromycin (Unverified Adverse Reaction, Mild, N/V, 04/01/19) Patient Home Medication List Home Medication List Reviewed: Yes Docusate Sodium (Dok) 100 Mg Capsule, 100 MG PO BID PRN for CONSTIPATION-1ST LINE Prescribed by: KAUSHAL LICONA on 03/23/21830 Fluoxetine HCl (Fluoxetine Dr) 90 Mg Capsule., 1 CAP Q 7 DAYS, (Reported) Entered as Reported by: ONOFRE PIERRE on 12/01/201951 Hydrocodone Bit/Acetaminophen (HYDROcodone/APAP 7.5/325 TAB) 1 Ea Tablet, 2 EA PO Q6H PRN for Pain-See Instructions Prescribed by: KAUSHAL LICONA on 03/23/21830 Ibuprofen (Ibu) 600 Mg Tablet, 600 MG PO Q6H Prescribed by: KAUSHAL LICONA on 03/23/21 0831 Review of Systems Constitutional: no symptoms reported EENTM: no symptoms reported Respiratory: no symptoms reported Cardiovascular: no symptoms reported Gastrointestinal: no symptoms reported Genitourinary: no symptoms reported Musculoskeletal: no symptoms reported Skin: no symptoms reported Psychiatric/Neurological: See HPI Past Ttifshw-Wmzznr-Ebjmxd Hx Patient Social History Tobacco Use?: No Use of E-Cig and/or Vaping dev: Yes E-Cig or Vaping type used: Nicotine Substance use?: Yes Additional substance use comme: cbd Substance frequency: Rarely Alcohol Use?: No Pt feels they are or have been: No Immunizations Up To Date Tetanus Booster (TDap): Unknown PED Vaccines UTD: Yes Influenza Vaccine Up-to-Date: No; Not Current First/Initial COVID19 Vaccinat: 2020 Second COVID19 Vaccination Juan Antonio: 2020 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: [employer] Seasonal Allergies Seasonal Allergies: Yes Past Medical History Surgery/Hospitalization HX: bipolar 2, adhd, manic depression Surgeries: Yes Section, Gallbladder, Tonsillectomy, 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 Respiratory: No Currently Using CPAP: No Currently Using BIPAP: No Cardiac: No Hypertension Neurological: Yes Concussion, Headaches /Migraines Reproductive Disorders: No Female Reproductive Disorders: Denies 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 No Pertinent Family Hx Physical Exam Vital Signs - First Documented 07/29/22 11:15 Temp 36.9 Pulse 66 Resp 18 B/P (MAP) 122/85 (97) Pulse Ox 99 O2 Delivery Room Air Capillary Refill : Height, Weight, BMI Height: 5'7.00" Weight: 265lbs. 9.8oz. 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, no motor/sensory deficits, alert, normal mood/affect, oriented x 3 Skin: normal color, warm/dry Progress/Results/Core Measures Results/Orders Lab Results Laboratory Tests Test 07/29/22 12:26 07/29/22 12:35 Range/Units White Blood Count 7.0 4.3-11.0 10^3/uL Red Blood Count 4.43 3.80-5.11 10^6/uL Hemoglobin 13.3 11.5-16.0 g/dL Hematocrit 40 35-52 % Mean Corpuscular Volume 90 80-99 fL Mean Corpuscular Hemoglobin 30 25-34 pg Mean Corpuscular Hemoglobin Concent 33 32-36 g/dL Red Cell Distribution Width 12.4 10.0-14.5 % Platelet Count 225 130-400 10^3/uL Mean Platelet Volume 10.0 9.0-12.2 fL Immature Granulocyte % (Auto) 0 % Neutrophils (%) (Auto) 60 42-75 % Lymphocytes (%) (Auto) 29 12-44 % Monocytes (%) (Auto) 6 0-12 % Eosinophils (%) (Auto) 4 0-10 % Basophils (%) (Auto) 1 0-10 % Neutrophils # (Auto) 4.2 1.8-7.8 10^3/uL Lymphocytes # (Auto) 2.1 1.0-4.0 10^3/uL Monocytes # (Auto) 0.4 0.0-1.0 10^3/uL Eosinophils # (Auto) 0.3 0.0-0.3 10^3/uL Basophils # (Auto) 0.0 0.0-0.1 10^3/uL Immature Granulocyte # (Auto) 0.0 0.0-0.1 10^3/uL Sodium Level 142 135-145 MMOL/L Potassium Level 4.1 3.6-5.0 MMOL/L Chloride Level 109 H 98-107 MMOL/L Carbon Dioxide Level 23 21-32 MMOL/L Anion Gap 10 5-14 MMOL/L Blood Urea Nitrogen 10 7-18 MG/DL Creatinine 0.78 0.60-1.30 MG/DL Estimat Glomerular Filtration Rate 103 BUN/Creatinine Ratio 13 Glucose Level 85 70-105 MG/DL Calcium Level 9.2 8.5-10.1 MG/DL Corrected Calcium 9.1 8.5-10.1 MG/DL Total Bilirubin 0.4 0.1-1.0 MG/DL Aspartate Amino Transf (AST/SGOT) 15 5-34 U/L Alanine Aminotransferase (ALT/SGPT) 18 0-55 U/L Alkaline Phosphatase 41 40-136 U/L Total Protein 6.6 6.4-8.2 GM/DL Albumin 4.1 3.2-4.5 GM/DL Salicylates Level < 5.0 L 5.0-20.0 MG/DL Acetaminophen Level < 10 L 10-30 UG/ML Serum Alcohol < 10 <10 MG/DL Urine Color YELLOW Urine Clarity CLEAR Urine pH 6.5 5-9 Urine Specific Albright 1.020 1.016-1.022 Urine Protein NEGATIVE NEGATIVE Urine Glucose (UA) NEGATIVE NEGATIVE Urine Ketones NEGATIVE NEGATIVE Urine Nitrite NEGATIVE NEGATIVE Urine Bilirubin NEGATIVE NEGATIVE Urine Urobilinogen 1.0 < = 1.0 MG/DL Urine Leukocyte Esterase NEGATIVE NEGATIVE Urine RBC (Auto) NEGATIVE NEGATIVE Urine RBC NONE /HPF Urine WBC NONE /HPF Urine Squamous Epithelial Cells RARE /HPF Urine Crystals NONE /LPF Urine Bacteria NEGATIVE /HPF Urine Casts NONE /LPF Urine Mucus NEGATIVE /LPF Urine Culture Indicated NO Urine Opiates Screen NEGATIVE NEGATIVE Urine Oxycodone Screen NEGATIVE NEGATIVE Urine Methadone Screen NEGATIVE NEGATIVE Urine Propoxyphene Screen NEGATIVE NEGATIVE Urine Barbiturates Screen NEGATIVE NEGATIVE Ur Tricyclic Antidepressants Screen NEGATIVE NEGATIVE Urine Phencyclidine Screen NEGATIVE NEGATIVE Urine Amphetamines Screen NEGATIVE NEGATIVE Urine Methamphetamines Screen NEGATIVE NEGATIVE Urine Benzodiazepines Screen NEGATIVE NEGATIVE Urine Cocaine Screen NEGATIVE NEGATIVE Urine Cannabinoids Screen POSITIVE H NEGATIVE My Orders Orders - FELICITY ROSAS APRN Ua Culture If Indicated (07/29/22 12:06) Cbc With Automated Diff (07/29/22 12:06) Comprehensive Metabolic Panel (07/29/22 12:06) Alcohol (07/29/22 12:06) Drug Screen Stat (Urine) (07/29/22 12:06) Acetaminophen (07/29/22 12:06) Salicylate (07/29/22 12:06) Ekg Tracing (07/29/22 12:06) Monitor-Rhythm Ecg Trace Only (07/29/22 12:06) Bh Status Checks/Observation O Q15M (07/29/22 12:06) Clonazepam Tablet (Klonopin Tablet) (07/29/22 12:30) General/Regular (07/29/22 Lunch) Clonazepam Tablet (Klonopin Tablet) (07/29/22 17:45) Medications Given in ED Current Medications Medications Dose Ordered Sig/Maru Route Start Time Stop Time Status Last Admin Dose Admin Clonazepam 0.5 mg ONCE ONCE PO 07/29/22 12:30 07/29/22 12:31 DC 07/29/22 12:41 0.5 MG Clonazepam 1 mg ONCE ONCE PO 07/29/22 17:45 07/29/22 17:46 DC 07/29/22 17:49 1 MG Vital Signs/I&O 07/29/22 11:15 Temp 36.9 Pulse 66 Resp 18 B/P (MAP) 122/85 (97) Pulse Ox 99 O2 Delivery Room Air Blood Pressure Mean: 97 Progress Progress Note : Progress Note Patient is nontoxic and well-hydrated on exam. She denies any suicidal ideation at the exact time of my assessment. She states she did have SI earlier today. Will obtain medical clearance and have the crisis psychiatric personnel assessed the patient. Patient was able to be medically cleared. UDS notable for cannabinoids but work-up is otherwise unremarkable. The mental health personnel assessed the patient and feels that she would benefit from inpatient admission. They spent several hours working on finding placement. They were able to find a facility that can take the patient. The crisis mental health professional ask that patient be discharged to their custody and they would transport the patient to the facility. At the time of patient's discharge, I did not have a specific accepting physician at the facility. The mental health staff member stated this would be figured out once they arrived to the facility. Patient is agreeable to this plan and was discharged. EKG : Rate: 60 Rhythm: Normal Sinus Intervals: Normal ECG Impression: Normal Departure Impression Primary Impression: Suicidal ideation Disposition: 65 XFER TO PSYCH HOSP/UNIT (discharged to mental health with plan for transport to facility) Condition: Improved Departure-Patient Inst. Decision time for Depature: 21:15 Referrals: NO,LOCAL PHYSICIAN (PCP) Primary Care Physician BOYKIN,JF J UNIX ARCHITECT (Family) Primary Care Physician Patient Instructions: OUTPT MENTAL HEALTH SERVICES FELICITY ROSAS APRN Jul 29, 2022 13:00
[2022-07-29 13:11] LABS: ACETAMINOPHEN < 10 UG/ML (10-30)
[2022-07-29 13:24] LABS: ALANINE AMINOTRANSFERASE 18 U/L (0-55)
[2022-07-29] MEDS ORDERED: clonazePAM 1 MG (KlonoPIN) TAB PO ONE (17:45)
== END 2022-07-29 21:20 | disposition home or self-care (01) ==
LOC: EDUNIT# 10:58 → ER 11:01
DX: R45.851 Suicidal ideations (principal); F17.290 Nicotine dependence, other tobacco product, uncomplicated
CPT/HCPCS: 80053; 80306; 81000; 85025; 93005; 99283; G0480 ×3; 36415; 80320; 80329

== ENCOUNTER 2022-08-08 05:39 | Outpatient (CLI) | payer OTHER ==
[~2022-08-08] VITALS: Ht 170.2 cm; Wt 102.7 kg
[2022-08-14] MEDS ORDERED: CLON1TAB PO (08:28)
[2022-08-14] MEDS ORDERED: DEXT20CA4 PO (08:28)
[2022-08-14] MEDS ORDERED: ARPZ20T PO (08:28)
== END 2022-08-14 08:49 | disposition home or self-care (01) ==
LOC: PREOP 05:39
PROVIDERS: ATTEND Surgery
DX: Z01.818 Encounter for other preprocedural examination (principal)

== ENCOUNTER 2022-08-16 11:03 | Day surgery (SDC) | payer OTHER ==
[~2022-08-16] VITALS: Ht 170.2 cm; Wt 102.7 kg
[~2022-08-16 11:03] MED LIST changes: +ARPZ20T PO; +CLON1TAB PO; +DEXT20CA4 PO
[2022-08-16] MEDS ORDERED: LACTATED RINGERS 1,000 ML IV STA (11:05)
[2022-08-16 11:20] VITALS: BP 130/71
--- NOTE | 2022-08-16 11:30 | Progress Note-Pre Operative ---
Pre-Operative Progress Note Date of Available H&P: Jul 31, 2022 Date H&P Reviewed: Aug 16, 2022 Time H&P Reviewed: 11:30 History & Physical: H&P Reviewed, Patient Examed, No changes noted Pre-Operative Diagnosis: rectal bleeding, family hx colon cancer DINA MARTIN DO Aug 16, 2022 11:30
[2022-08-16] MEDS ORDERED: PROPOFOL INJECTION 50 ML IV ONE (12:15)
[2022-08-16] MEDS ORDERED: MIDAZOLAM 2 MG/2 ML (VERSED) VIAL ONE (12:15)
--- NOTE | 2022-08-16 12:48 | Discharge Inst-Simple/Standard ---
Discharge Inst-Standard Reconcile Patient Problems Problems Reviewed?: Yes Patient Instructions/Follow Up Plan of Care/Instructions/FU: Follow up in [address] Morillo Activity as Tolerated: Yes Discharge Diet: Regular Diet DINA MORILLO DO Aug 16, 2022 12:48
[2022-08-16 12:50] VITALS: BP 123/69
[2022-08-16 12:55] VITALS: BP 134/75
--- NOTE | 2022-08-16 13:14 | Anesthesia-General Post-Op ---
MAC Patient Condition Mental Status/LOC: Same as Preop Cardiovascular: Satisfactory Nausea/Vomiting: Absent Respiratory: Satisfactory Pain: Controlled Complications: Absent Post Op Complications Complications None Follow Up Care/Instructions Patient Instructions None needed. Anesthesiology Discharge Order Discharge Order Patient is doing well, no complaints, stable vital signs, no apparent adverse anesthesia problems. No complications reported per nursing. NICKOLAS JHAVERI CRNA Aug 16, 2022 13:14
[2022-08-16 13:25] VITALS: BP 136/70
[2022-08-16 13:30] VITALS: BP 136/70
--- NOTE | 2022-08-16 22:09 | OPERATIVE REPORT ---
DATE OF SERVICE: 08/16/2022 PREOPERATIVE DIAGNOSES: Rectal bleeding and family history of colon cancer. POSTOPERATIVE DIAGNOSES: External hemorrhoids and descending colon polyp. PROCEDURE: Colonoscopy with hot biopsy polypectomy x1. SURGEON: Dina Morillo DO. FLUIDS: Per FLOOR RENOVATOR. ESTIMATED BLOOD LOSS: None. COMPLICATIONS: None. INDICATIONS: The patient is a 32-year-old female with rectal bleeding and family history of colon cancer. She understands risks and benefits of procedure and wishes to proceed. Consent was signed in chart. DESCRIPTION OF PROCEDURE: The patient was taken to the endoscopy suite, placed in left lateral recumbent position. A timeout was performed. Digital rectal exam was performed and external hemorrhoids. No palpable polyps, masses or ulcerations. Scope was inserted to the rectum was all the way to the cecum with minimal difficulty. Prep was adequate. Scope was slowly retracted back. No polyps, masses, ulcerations in the cecum, ascending, transverse colon, descending colon. A very small flat polyp was present, which a hot bath polypectomy was performed. Scope was then easily retracted. No polyps, masses or ulcerations within the remainder of the descending, sigmoid and rectum. Scope was also retroflexed. No other pathology. Scope was returned to its normal position and slowly withdrawn until completely removed. The patient tolerated the procedure well without complications. She was taken to recovery room in stable condition. RECOMMENDATIONS: The patient will need repeat colonoscopy in 5 years and any issues before that be seen at that time. Due to the size of her external hemorrhoids would consider surgical intervention. We will discuss this in followup. Due to the family history of colon cancer and polyp, we will have repeat colonoscopy in 5 years. Job ID: [id number] DocumentID: [id number] Dictated Date: 08/16/2022 13:20:52 Electrician Station Assistant Date: 08/16/2022 22:07:00 Dictated By: DINA MORILLO DO
== END 2022-08-16 13:30 | disposition home or self-care (01) ==
LOC: ENDO 11:03
PROVIDERS: ATTEND Surgery
DX: K63.5 Polyp of colon (principal); K64.4 Residual hemorrhoidal skin tags; Z80.0 Family history of malignant neoplasm of digestive organs; E66.01 Morbid (severe) obesity due to excess calories; Z68.35 Body mass index [BMI] 35.0-35.9, adult; F17.290 Nicotine dependence, other tobacco product, uncomplicated
CPT/HCPCS: 88305

== ENCOUNTER → 2022-08-28 | Outpatient (CLI) | payer OTHER | LOC: CARD 15:00 | PROVIDERS: ATTEND Internal Medicine Cardiovascular Disease | DX: R55 Syncope and collapse (principal) | CPT/HCPCS: 93306 ==

== ENCOUNTER 2022-12-04 16:13 | Emergency (ER) | payer OTHER ==
[~2022-12-04] VITALS: Ht 170 cm; Wt 95.7 kg
[2022-12-04] MEDS ORDERED: KETOROLAC 30 MG/ML VIAL IVP ONE (18:15)
[2022-12-04] MEDS ORDERED: LACTATED RINGERS 1,000 ML IV ONE (18:15)
--- NOTE | 2022-12-04 18:28 | ED Headache ---
General Chief Complaint: Head/Cervical Problems Stated Complaint: SEVERE MIGRAINE, PUPILS ARE NOT THE SAME Nursing Triage Note: PT PRESENTS TO ED VIA POV FROM [facility] FOR UNEQUAL PUPILS AND MIGRAINE. PT REPORTS MIGRAINE FIRST STARTED 3 DAYS AGO. Source: patient Exam Limitations: no limitations (KESHAWN CROOKS MD) History of Present Illness Date Seen by Provider: Dec 04, 2022 Time Seen by Provider: 17:50 Initial Comments This 32-year-old woman presents to the emergency room with complaints of a "really bad migraine" on the left side. She went to urgent care but was sent to the emergency room because they noticed anisocoria. On my exam the left pupil is very subtly larger than the right but they are equally reactive to light and accommodation. She has no focal neurologic deficits. She has had a history of migraines in the past but states none have been this severe although symptoms have been similar. She has associated nausea, photosensitivity, and some blurry vision without diplopia. The reports her pain is near a 10 on the pain scale. She has taken Tylenol but no NSAID medications. She avoids NSAID medications due to gastric sleeve surgery. (KESHAWN CROOKS MD) Allergies and Home Medications Allergies Coded Allergies: azithromycin (Unverified Adverse Reaction, Mild, N/V, 04/01/19) Patient Home Medication List Home Medication List Reviewed: Yes (KESHAWN CROOKS MD) Aripiprazole (Abilify) 20 Mg Tablet, 20 MG PO HS, (Reported) Entered as Reported by: ADRIANA VALDIVIA on 08/14/22827 Clonazepam (Klonopin) 1 Mg Tablet, 1 MG PO BID, (Reported) Entered as Reported by: ADRIANA VALDIVIA on 08/14/22827 Dextroamphetamine/Amphetamine (Dextroamp-Amphet ER 20 mg Cap) 20 Mg Cap.er.24h, 20 MG PO DAILY, (Reported) Entered as Reported by: ADRIANA VALDIVIA on 08/14/22827 Review of Systems Review of Systems Constitutional: no symptoms reported Eyes: See HPI Ears, Nose, Mouth, Throat: no symptoms reported Respiratory: no symptoms reported Cardiovascular: no symptoms reported Gastrointestinal: see HPI Genitourinary: no symptoms reported : No Musculoskeletal: no symptoms reported Skin: no symptoms reported Psychiatric/Neurological: No Symptoms Reported (KESHAWN CROOKS MD) Past Mpdsnlo-Hgobug-Btjyjt Hx Patient Social History Tobacco Use?: No Substance use?: No Alcohol Use?: No Pt feels they are or have been: No (KESHAWN CROOKS MD) Immunizations Up To Date Tetanus Booster (TDap): Unknown PED Vaccines UTD: Yes First/Initial COVID19 Vaccinat: 2020 Second COVID19 Vaccination Juan Antonio: 2020 Third COVID19 Vaccination Date: 2020 (KESHAWN CROOKS MD) Seasonal Allergies Seasonal Allergies: Yes (KESHAWN CROOKS MD) Past Medical History Surgery/Hospitalization HX: bipolar 2, adhd, manic depression Surgeries: Yes (back sx, tubal then reversal, d&c, gastric sleeve) Abdominal (Gastric sleeve), Section, Gallbladder, Hysterectomy, Tonsillectomy, 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 Respiratory: No Emphysema Currently Using CPAP: No Currently Using BIPAP: No Cardiac: Yes Hypertension Neurological: Yes Concussion, Headaches /Migraines Reproductive Disorders: No Female 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, 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 Sexually Transmitted Disease: No HIV/AIDS: No Genitourinary: No Gastrointestinal: Yes (rectal bleeding) Hemorrhoids Musculoskeletal: Yes Degenerate Disk Disease, Arthritis Endocrine: No HEENT: No Loss of Vision: Denies Hearing Impairment: Denies Cancer: No Psychosocial: Yes Anxiety, Depression Integumentary: No Blood Disorders: No Adverse Reaction/Blood Tranf: No (N/A) (KESHAWN CROOKS MD) Family Medical History Colon cancer No Pertinent Family Hx (KESHAWN CROOKS MD) Physical Exam Vital Signs Vital Signs - First Documented 12/04/22 16:57 Temp 36.8 Pulse 64 Resp 18 B/P (MAP) 113/77 (89) 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 9.8oz. 120.884358qi; 33.00 BMI Method:Stated General Appearance: WD/WN, no apparent distress HEENT: PERRL/EOMI (Very subtle anisocoria with left pupil subtly larger than the right but equally reactive to light and accommodation), normal ENT inspection, TMs normal, pharynx normal Neck: normal inspection Cardiovascular: regular rate, rhythm, no edema, no murmur Respiratory: lungs clear, normal breath sounds, no respiratory distress Gastrointestinal: normal bowel sounds, non tender, soft Extremities: normal inspection, no pedal edema Psychiatric: alert, oriented x 3 Crainal Nerves: normal hearing, normal speech, PERRL (Very subtle anisocoria with left pupil slightly larger than the right but equally reactive to light and accommodation) Coordination/Gait: normal finger to nose, normal gait Motor/Sensory: no motor deficit, no sensory deficit Skin: normal color, warm/dry (KESHAWN CROOKS MD) Progress/Results/Core Measures Results/Orders Lab Results Laboratory Tests Test 12/04/22 18:52 Range/Units White Blood Count 7.0 4.3-11.0 10^3/uL Red Blood Count 4.58 3.80-5.11 10^6/uL Hemoglobin 14.0 11.5-16.0 g/dL Hematocrit 41 35-52 % Mean Corpuscular Volume 89 80-99 fL Mean Corpuscular Hemoglobin 31 25-34 pg Mean Corpuscular Hemoglobin Concent 34 32-36 g/dL Red Cell Distribution Width 12.1 10.0-14.5 % Platelet Count 218 130-400 10^3/uL Mean Platelet Volume 10.4 9.0-12.2 fL Immature Granulocyte % (Auto) 0 % Neutrophils (%) (Auto) 58 42-75 % Lymphocytes (%) (Auto) 35 12-44 % Monocytes (%) (Auto) 5 0-12 % Eosinophils (%) (Auto) 2 0-10 % Basophils (%) (Auto) 1 0-10 % Neutrophils # (Auto) 4.0 1.8-7.8 10^3/uL Lymphocytes # (Auto) 2.4 1.0-4.0 10^3/uL Monocytes # (Auto) 0.4 0.0-1.0 10^3/uL Eosinophils # (Auto) 0.1 0.0-0.3 10^3/uL Basophils # (Auto) 0.1 0.0-0.1 10^3/uL Immature Granulocyte # (Auto) 0.0 0.0-0.1 10^3/uL Sodium Level 142 135-145 MMOL/L Potassium Level 3.5 L 3.6-5.0 MMOL/L Chloride Level 109 H 98-107 MMOL/L Carbon Dioxide Level 24 21-32 MMOL/L Anion Gap 9 5-14 MMOL/L Blood Urea Nitrogen 8 7-18 MG/DL Creatinine 0.80 0.60-1.30 MG/DL Estimat Glomerular Filtration Rate 100 BUN/Creatinine Ratio 10 Glucose Level 80 70-105 MG/DL Calcium Level 9.2 8.5-10.1 MG/DL Magnesium Level 1.9 1.6-2.4 MG/DL (MY LINTON APRN) My Orders Orders - MY LINTON APRN Potassium Chloride (Tablet) (K Dur Table (12/04/22 19:45) Ct Head Wo (12/04/22 19:35) (MY LINTON APRN) Medications Given in ED Current Medications Medications Dose Ordered Sig/Maru Route Start Time Stop Time Status Last Admin Dose Admin Dexamethasone Sodium Phosphate 4 mg ONCE ONCE IV 12/04/22 19:00 12/04/22 19:01 DC 12/04/22 19:27 4 MG Ketorolac Tromethamine 30 mg ONCE ONCE IVP 12/04/22 18:15 12/04/22 18:16 DC 12/04/22 18:46 30 MG Lactated Ringer's 1,000 ml @ 0 mls/hr Q0M ONCE IV 12/04/22 18:15 12/04/22 18:16 DC 12/04/22 18:46 0 MLS/HR (MY LINTON APRN) Vital Signs/I&O 12/04/22 16:57 Temp 36.8 Pulse 64 Resp 18 B/P (MAP) 113/77 (89) Pulse Ox 99 (MY LINTON APRN) Blood Pressure Mean: 89 Progress Progress Note : Time: 18:30 Progress Note Patient was interviewed and examined. She was neurologically intact. The anisocoria noted at urgent care was also seen on this exam but was extremely subtle. Eyes were equally reactive to light and accommodation. Extraocular muscles were intact. We discussed options for treatment at this time. She is going to receive a liter of IV fluid, Toradol, and Phenergan. Basic labs will be checked. If there is any concern for refractory symptoms or neurologic problems after treatment, we will revisit options for evaluation and imaging. (KESHAWN CROOKS MD) Progress Note #1: Time: 19:37 Progress Note Patient evaluated by me. She states that she is beginning to feel better, states headache is still present, but significantly decreased. Pupils remain different sizes. Left is obviously larger than the right. Discussed CT head with patient, patient agrees. Labs reviewed. CBC grossly normal. CMP shows slightly decreased potassium at 3.5, oral potassium ordered. Progress Note #2: Time: 20:[address] result reviewed, negative for acute abnormality. Results discussed with patient. Discussed medications patient can take at home for migraines. Will prescribe Zofran as needed for nausea and migraines. Patient given discharge directions and return precautions (MY LINTON APRN) Diagnostic Imaging Diagonstic Imaging: CT Plain Films/CT/US/NM/MRI: head Comments [facility] [place], [place] NAME: MY GRA[facility] REC#: [id number] PT STATUS: REG ER : 1990 PHYSICIAN: MY LINTON APRN ADMIT DATE: 12/04/22/ER Signed Date of Exam:12/04/22 CT HEAD WO PROCEDURE: CT head without contrast. TECHNIQUE: Multiple contiguous axial images were obtained through the brain without the use of intravenous contrast. Auto Exposure Controls were utilized during the CT exam to meet ALARA standards for radiation dose reduction. DATE: December 04, 2022. COMPARISON: CT angiography head June 06, 2021. INDICATION: 32-year-old female, unequal pupils. Headaches. Migraine headache. FINDINGS: The ventricles and cerebral spinal fluid spaces are of normal size and configuration for the patient's age. There is no mass effect or midline shift. There is no acute intracranial hemorrhage. There is no abnormal extra-axial fluid collection. There is a polypoid lesion in the left maxillary sinus most likely reflecting a mucous retention cyst. There is no air-fluid level in the paranasal sinuses. The mastoid air cells and middle ears are well aerated bilaterally. IMPRESSION: 1. No identified acute intracranial abnormality. Dictated by: Dictated on workstation # [id number] Dict: 12/04/221947 Trans: 12/04/221951 CVB [id number] Interpreted by: KT KAHN MD Electronically signed by: KT KAHN MD 12/04/221951 (MY LINTON APRN) Departure Impression Primary Impression: Migraine headache Qualified Codes: G43.909 - Migraine, unspecified, not intractable, without status migrainosus Disposition: HOME, SELF-CARE Condition: Stable Departure-Patient Inst. Decision time for Depature: 20:09 (MY LINTON APRN) Referrals: NO,LOCAL PHYSICIAN (PCP) Primary Care Physician JF BOYKIN (Family) Primary Care Physician Patient Instructions: Migraines (DC) Add. Discharge Instructions: Take Zofran as needed for nausea. Return for severe headache, recurrent vomiting, or any other new, concerning, or worsening symptoms. Follow-up with your primary care provider. All discharge instructions reviewed with patient and/or family. Voiced understanding. Scripts Ondansetron (Ondansetron Odt) 4 Mg Tab.rapdis 4 MG SL Q4H PRN for NAUSEA/VOMITING, #15 TAB 0 Refills Prov: MY LINTON APRN 12/04/22 KESHAWN CROOKS MD Dec 04, 2022 18:28 MY LINTON APRN Dec 04, 2022 19:38
[2022-12-04 18:55] LABS: BASOPHILS # (AUTO) 0.1 10^3/uL (0.0-0.1); BASOPHILS % (AUTO) 1 % (0-10); EOSINOPHILS # (AUTO) 0.1 10^3/uL (0.0-0.3); EOSINOPHILS % (AUTO) 2 % (0-10); HEMATOCRIT 41 % (35-52); LYMPHOCYTES # (AUTO) 2.4 10^3/uL (1.0-4.0); LYMPHOCYTES % (AUTO) 35 % (12-44); MEAN CORPUSCULAR HEMOGLOBIN 31 pg (25-34); MEAN CORPUSCULAR HGB CONC 34 g/dL (32-36); MEAN CORPUSCULAR VOLUME 89 fL (80-99); MEAN PLATELET VOLUME 10.4 fL (9.0-12.2); MONOCYTES # (AUTO) 0.4 10^3/uL (0.0-1.0); MONOCYTES % (AUTO) 5 % (0-12); NEUTROPHILS % (AUTO) 58 % (42-75); PLATELET COUNT 218 10^3/uL (130-400)
[2022-12-04] MEDS ORDERED: PROMETHAZINE INJ 25 MG/ML (PHENERGAN) AMP IVP ONE (19:00)
[2022-12-04] MEDS ORDERED: diphenhydrAMINE 50 MG/ML INJ (BENADRYL) IVP ONE (19:00)
[2022-12-04 19:12] LABS: CALCIUM 9.2 MG/DL (8.5-10.1); CREATININE SERUM 0.8 MG/DL (0.60-1.30); MAGNESIUM 1.9 MG/DL (1.6-2.4); POTASSIUM 3.5 MMOL/L (3.6-5.0)
[2022-12-04] MEDS ORDERED: KCL 20 MEQ TAB (K-DUR) PO ONE (19:45)
--- NOTE | 2022-12-04 19:52 | Diagnostic Imaging Report ---
PROCEDURE: CT head without contrast. TECHNIQUE: Multiple contiguous axial images were obtained through the brain without the use of intravenous contrast. Auto Exposure Controls were utilized during the CT exam to meet ALARA standards for radiation dose reduction. DATE: December 04, 2022. COMPARISON: CT angiography head June 06, 2021. INDICATION: 32-year-old female, unequal pupils. Headaches. Migraine headache. FINDINGS: The ventricles and cerebral spinal fluid spaces are of normal size and configuration for the patient's age. There is no mass effect or midline shift. There is no acute intracranial hemorrhage. There is no abnormal extra-axial fluid collection. There is a polypoid lesion in the left maxillary sinus most likely reflecting a mucous retention cyst. There is no air-fluid level in the paranasal sinuses. The mastoid air cells and middle ears are well aerated bilaterally. IMPRESSION: 1. No identified acute intracranial abnormality. Dictated by: Dictated on workstation # [id number]
[2022-12-04] MEDS ORDERED: ONDA4TAB11 SL (20:13)
[2022-12-04 20:22] VITALS: BP 137/85
== END 2022-12-04 20:22 | disposition home or self-care (01) ==
LOC: EDUNIT# 16:13 → ER 16:14
DX: G43.909 Migraine, unspecified, not intractable, without status migrainosus (principal); H57.02 Anisocoria; E87.6 Hypokalemia
CPT/HCPCS: 36415; 70450; 80048; 83735; 85025

== ENCOUNTER 2023-03-24 15:01 | Emergency (ER) | payer OTHER ==
[~2023-03-24] VITALS: Ht 167 cm; Wt 99.7 kg
[~2023-03-24 15:01] MED LIST changes: +ONDA4TAB11 SL
--- NOTE | 2023-03-24 15:26 | ED Abdominal Pain ---
General Chief Complaint: Rect Problems Stated Complaint: HEMMORHOIDS Nursing Triage Note: PT AMBULATORY TO ER, C/O HEMMORHOIDS ONSET SEVERAL DAYS AGO. REPORTS HAS USED TUCKS WIPES AT HOME WITH NO RELIEF. Source of Information: Patient Exam Limitations: No Limitations History of Present Illness Date Seen by Provider: Mar 24, 2023 Time Seen by Provider: 15:24 Initial Comments Patient Is a 33-year-old female who presents ED with rectal pain. Rectal pain over the past 2 days. Reports history of hemorrhoids. States over the past 2 days she has had itching, discomfort with bowel movements. She states her bowel movements are soft. She noted bright red blood with wiping. History of hemorrh oids. She has seen Dr. Martin who recommended hemorrhoidectomy. She has been using witch jaye, Tucks, hemorrhoid cream without much improvement. She denies of any abdominal pain or fever, chills, nausea, vomiting, diarrhea. Allergies and Home Medications Allergies Coded Allergies: azithromycin (Unverified Adverse Reaction, Mild, N/V, 04/01/19) Patient Home Medication List Home Medication List Reviewed: Yes Aripiprazole (Abilify) 20 Mg Tablet, 20 MG PO HS, (Reported) Entered as Reported by: ADRIANA VALDIVIA on 08/14/22827 Clonazepam (Klonopin) 1 Mg Tablet, 1 MG PO BID, (Reported) Entered as Reported by: ADRIANA VALDIVIA on 08/14/22827 Dextroamphetamine/Amphetamine (Dextroamp-Amphet ER 20 mg Cap) 20 Mg Cap.er.24h, 20 MG PO DAILY, (Reported) Entered as Reported by: ADRIANA VALDIVIA on 08/14/22827 Hydrocortisone (Anusol-Hc) 2.5 % Cream..g., 30 GM RC BID Prescribed by: ROMULO HEAD on 03/24/23 1528 Ondansetron (Ondansetron Odt) 4 Mg Tab.rapdis, 4 MG SL Q4H PRN for NAUSEA/VOMITING Prescribed by: Ann Smith on 12/04/222012 Review of Systems Review of Systems Constitutional: No chills, No diaphoresis, No fever, No malaise, No weakness EENTM: No Blurred Vision, No Double Vision, No Eye Pain Respiratory: Denies Cough, Denies Orthopnea Cardiovascular: Denies Chest Pain Gastrointestinal: Denies Abdominal Pain, Denies Diarrhea, Denies Difficulty Swallowing, Denies Nausea; Other (Rectal pain) Genitourinary: Denies Burning, Denies Discharge, Denies Drainage, Denies Frequency Musculoskeletal: No back pain, No gout Skin: No change in color, No change in hair/nails Psychiatric/Neurological: Denies Anxiety, Denies Depressed All Other Systems Reviewed Negative Unless Noted: Yes Past Jhdtpdy-Beqocm-Tnghtb Hx Patient Social History Use of E-Cig and/or Vaping dev: Yes Substance use?: No Alcohol Use?: No Immunizations Up To Date Tetanus Booster (TDap): Unknown PED Vaccines UTD: Yes First/Initial COVID19 Vaccinat: RECEIVED UNK WHEN Second COVID19 Vaccination Juan Antonio: RECEIVED, UNK WHEN Third COVID19 Vaccination Date: 2020 COVID19 Vaccine [employer]oe [employer] M[employer]: [employer] Seasonal Allergies Seasonal Allergies: Yes Past Medical History Surgery/Hospitalization HX: bipolar 2, adhd, manic depression Surgeries: Yes (back sx, tubal then reversal, d&c, gastric sleeve) Abdominal, Section, Gallbladder, Hysterectomy, Tonsillectomy, 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 Respiratory: No Emphysema Currently Using CPAP: No Currently Using BIPAP: No Cardiac: Yes Hypertension Neurological: Yes Concussion, Headaches /Migraines Reproductive Disorders: No Female Reproductive Disorders: Denies 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, 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 Sexually Transmitted Disease: No HIV/AIDS: No Genitourinary: No Gastrointestinal: Yes (rectal bleeding) Hemorrhoids Musculoskeletal: Yes Degenerate Disk Disease, Arthritis Endocrine: No HEENT: No Loss of Vision: Denies Hearing Impairment: Denies Cancer: No Psychosocial: Yes Anxiety, Depression Integumentary: No Blood Disorders: No Adverse Reaction/Blood Tranf: No (N/A) Family Medical History Colon cancer No Pertinent Family Hx Physical Exam Vital Signs Vital Signs - First Documented 03/24/23 15:05 Temp 36.6 Pulse 71 Resp 18 B/P (MAP) 122/75 (91) Pulse Ox 99 O2 Delivery Room Air Capillary Refill : Height/Weight/BMI Height: 5'7.00" Weight: 265lbs. 9.8oz. 120.893617kr; 35.00 BMI Method:Stated General Appearance: WD/WN, no apparent distress HEENT: PERRL/EOMI, normal ENT inspection, TMs normal, pharynx normal Neck: non-tender, full range of motion, supple, normal inspection Respiratory: chest non-tender, lungs clear, normal breath sounds, no respiratory distress, no accessory muscle use Cardiovascular: regular rate, rhythm, no edema, no gallop, no JVD Gastrointestinal: normal bowel sounds, non tender, soft, no organomegaly Genital/Rectal: other (External hemorrhoids noted. No evidence of thrombosis. Normal rectal tone. 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 Differential diagnoses of external hemorrhoids, fissure, abscess. Complaining of rectal pain with known history of hemorrhoids for the past two days. Mild rectal bleeding with wiping. On exam she does have evidence of external hemorrhoids. Normal rectal tone. No evidence of thrombosis. Skgv-aqr-ywvonum medication without much improvement. She has follow-up with Dr. Martin in the past who recommended him neurectomy. I do recommend as she does have significant amount of hemorrhoids. Discussed starting Anusol topical twice a day. Discussed sitz bath. Discussed soft bowel movements and recommend laxatives. Discussed following up with Dr. Martin this week for further evaluation. If increasing pain, skin color changes to return back to ED. She has no perineal pain or tenderness. No urinary symptoms, fever, chills, nausea, vomiting, diarrhea. No evidence of abscess at this time Impression Primary Impression: Hemorrhoids Disposition: HOME, SELF-CARE Condition: Stable Departure-Patient Inst. Decision time for Depature: 15:27 Referrals: JF BOYKIN (PCP) Primary Care Physician DINA MARTIN DO Patient Instructions: Hemorrhoids (DC) Add. Discharge Instructions: Recommend following up with Dr. Martin for further evaluation. Recommend soft bowel movements. Recommend laxatives. All discharge instructions reviewed with patient and/or family. Voiced understanding. Scripts Hydrocortisone (Anusol-Hc) 2.5 % Cream..g. 30 GM RC BID, #2 EA Prov: KANDY RODRIGUEZ 03/24/23 KANDY RODRIGUEZ Mar 24, 2023 15:26
[2023-03-24] MEDS ORDERED: HYDR30CR71 RC (15:28)
[2023-03-24 15:32] VITALS: BP 122/75
== END 2023-03-24 15:34 | disposition home or self-care (01) ==
LOC: EDUNIT# 15:01 → ER 15:03
DX: K64.4 Residual hemorrhoidal skin tags (principal); F17.290 Nicotine dependence, other tobacco product, uncomplicated
CPT/HCPCS: 99281

== ENCOUNTER 2023-03-27 08:45 | Outpatient (CLI) | payer OTHER ==
[~2023-03-27] VITALS: Ht 165 cm; Wt 80.9 kg
[~2023-03-27 08:45] MED LIST changes: +HYDR30CR71 RC
[2023-03-27] MEDS ORDERED: ESCI20TA39 PO (09:25)
[2023-03-27] MEDS ORDERED: DEXT50CP PO (09:25)
[2023-03-27] MEDS ORDERED: SEMA0.253 SQ (09:25)
[2023-03-28] MEDS ORDERED: DOCU-143 PO (13:21)
[2023-03-28] MEDS ORDERED: ACHD5005 PO (13:21)
== END 2023-03-27 09:45 | disposition home or self-care (01) ==
LOC: PREOP 08:45
PROVIDERS: ATTEND Surgery
DX: Z01.818 Encounter for other preprocedural examination (principal)

== ENCOUNTER 2023-03-28 10:51 | Day surgery (SDC) | payer OTHER ==
[2023-03-28] VITALS (12 sets, daily range): BP systolic 103–148; BP diastolic 53–90
[~2023-03-28] VITALS: Ht 170.2 cm; Wt 80.9 kg
[~2023-03-28 10:51] MED LIST changes: +DEXT50CP PO; +ESCI20TA39 PO; +SEMA0.253 SQ
[2023-03-28] MEDS ORDERED: BUP/EPI 0.5% 1:200,000 (SENSORCAINE) 30 ML VIAL ONE (11:08)
[2023-03-28] MEDS ORDERED: ceFAZolin INJECTION 2,000 MG in NS (IVPB) 50 ML IV ONE (11:15)
[2023-03-28] MEDS ORDERED: ONDANSETRON 4 MG/2 ML (SDV) Z0FRAN IVP ONE (11:30)
[2023-03-28] MEDS ORDERED: FAMOTIDINE 20MG/2ML IV (PEPCID) IVP ONE (11:30)
[2023-03-28] MEDS ORDERED: ONDANSETRON 4 MG/2 ML (SDV) Z0FRAN ONE ×2 (11:31→11:35)
[2023-03-28] MEDS ORDERED: FAMOTIDINE 20MG/2ML IV (PEPCID) ONE (11:31)
[2023-03-28] MEDS ORDERED: SEVOFLURANE (ULTANE) 15 ML INHAL SOLN ONE ×2 (11:35→12:57)
[2023-03-28] MEDS ORDERED: proPOfol 200 MG/20 ML (DIPRIVAN) VIAL IV ONE (11:35)
[2023-03-28] MEDS ORDERED: LIDOCAINE PF 2% 5 ML (XYLOCAINE) VIAL ONE (11:35)
[2023-03-28] MEDS ORDERED: fentaNYL INJ 100 MCG/2 ML AMP ONE (11:35)
[2023-03-28] MEDS ORDERED: MIDAZOLAM 2 MG/2 ML (VERSED) VIAL ONE (11:35)
[2023-03-28] MEDS ORDERED: diphenhydrAMINE 50 MG/ML INJ (BENADRYL) ONE (11:37)
[2023-03-28] MEDS ORDERED: diphenhydrAMINE 50 MG/ML INJ (BENADRYL) IVP ONE (12:15)
[2023-03-28] MEDS ORDERED: LACTATED RINGERS 1,000 ML IV PRN (12:15)
--- NOTE | 2023-03-28 12:21 | Progress Note-Pre Operative ---
Pre-Operative Progress Note Date H&P Reviewed: Mar 28, 2023 Time H&P Reviewed: 12:21 History & Physical: H&P Reviewed, Patient Examed, No changes noted Pre-Operative Diagnosis: HEMORRHOIDS DINA MARTIN DO Mar 28, 2023 12:21
[2023-03-28] MEDS ORDERED: METOCLOPRAMIDE INJ 10 MG/2 ML (REGLAN) ONE (12:27)
[2023-03-28] MEDS ORDERED: KETOROLAC 30 MG/ML VIAL ONE (12:41)
[2023-03-28] MEDS ORDERED: HYDROmorphone 2 MG/ML VIAL (DILAUDID) ONE ×2 (12:49→13:18)
[2023-03-28] MEDS ORDERED: MEPERIDINE (DEMEROL) INJ 50 MG/ML ONE (13:04)
[2023-03-28] MEDS ORDERED: PROMETHAZINE INJ 25 MG/ML (PHENERGAN) AMP IVP ONE (13:15)
[2023-03-28] MEDS ORDERED: HYDROmorphone 2 MG/ML VIAL (DILAUDID) IV ONE (13:15)
--- NOTE | 2023-03-28 13:20 | Progress Note-Post Operative ---
Post-Operative Progess Note Surgeon (s)/Pipe Stem Sawyer (s) Surgeon DINA MARTIN DO Pipe Stem Sawyer: na Pre-Operative Diagnosis HEMORRHOIDS Post-Operative Diagnosis internal/external hemorrhoids Procedure & Operative Findings Date of Procedure 03/28/23 Procedure Performed/Findings internal external hemorrhoidectomy x 3 Anesthesia Type general Estimated Blood Loss Estimated blood loss (mL): minimal Specimens/Packing Specimens Removed internal external hemorrhoids Packing: gelfoam/vasoline gauze DINA MARTIN DO Mar 28, 2023 13:20
[2023-03-28] MEDS ORDERED: DOCU-143 PO (13:21)
[2023-03-28] MEDS ORDERED: ACHD5005 PO (13:21)
--- NOTE | 2023-03-28 13:23 | Discharge Inst-Simple/Standard ---
Discharge Inst-Standard Discharge Medications New, Converted or Re-Newed RX: Transmitted to Pharmacy Patient Instructions/Follow Up Plan of Care/Instructions/FU: 2-3 weeks Morillo Activity as Tolerated: Yes Discharge Diet: Regular Diet Other Inst to Patient Follow up Appt: Make appointment for 2 week. Instructions: No strenuous activity. Use incentive spirometer at home as directed. No Smoking Sitz bath 2-3 times a day and after bowel movements. Keep clean and dry. You have a plug in the anus, if it has not come out in 24 hours gently remove it. Symptoms to Report: Appetite Changes, Extremity Discoloration, Numbness/Tingling, Swelling Increased, Bleeding Excessive, Eyesight Changes, Pain Increased, Urine Color Change, Constipation(Persistent), Fever over 101 degree F, Pain/Pressure in chest, Urinating Difficulty, Cough Up/Vomit Blood, Heart Beat Irreg/Pounding, Pain/Pressure in jaw, Vaginal Bleeding Increase, Cramps in feet or legs, L ightheadedness, Pain/Pressure in shoulder, Diarrhea(Persistent), Memory Changes Suddenly, Questions/Concerns, Weight gain consecutive days, Dizziness/Fainting, Nausea/Vomiting, Shortness of Breath, Weight gain over 2 pounds If questions or concerns contact your physician Or seek help at emergency department. DINA MORILLO DO Mar 28, 2023 13:23
--- NOTE | 2023-03-28 13:44 | Anesthesia-General Post-Op ---
General Patient Condition Mental Status/LOC: Same as Preop Cardiovascular: Satisfactory Nausea/Vomiting: Absent Respiratory: Satisfactory Pain: Controlled Complications: Absent Post Op Complications Complications None Follow Up Care/Instructions Patient Instructions None needed. Anesthesia/Patient Condition Patient Condition Patient is doing well, no complaints, stable vital signs, no apparent adverse anesthesia problems. No complications reported per nursing. D/C home per [facility] Criteria: Yes CARRIE JOSUE CRNA Mar 28, 2023 13:44
[2023-03-28] MEDS ORDERED: HYDROcodone/APAP 5 MG/325 MG (LORTAB) TAB PO ONE (14:45)
--- NOTE | 2023-03-29 04:24 | OPERATIVE REPORT ---
DATE OF SERVICE: 03/28/2023 PREOPERATIVE DIAGNOSIS: Hemorrhoids. POSTOPERATIVE DIAGNOSIS: Internal and external hemorrhoids. SURGEON: Dina Morillo DO ANESTHESIA: General. PROCEDURE: Internal and external hemorrhoidectomy x3. ESTIMATED BLOOD LOSS: Minimal. COMPLICATIONS: None. SPECIMENS: Internal and external hemorrhoids. PACKING: Gelfoam and Vaseline gauze. INDICATIONS: The patient is a 33-year-old female with longstanding history of internal and external hemorrhoids. She wishes to have surgical intervention. She understands risks and benefits and wishes to proceed. Consent was signed in chart. DESCRIPTION OF PROCEDURE: The patient was taken to the operating suite. She was prepped and draped in sterile fashion in lithotomy position. Timeout was performed. Digital rectal exam was performed. No palpable polyps, masses or ulcerations. Internal and external hemorrhoidal disease present. Dittmar retractor was inserted and the patient with significant left lateral, right anterior, right posterior hemorrhoid complexes. The Dittmar retractor was removed. A bilateral pudendal nerve block was performed. Dittmar retractor was then inserted back into the rectum and using an Allis, the hemorrhoid complex was grasped and retracted out for better visualization and a Harmonic procedure was then used to excise the left lateral internal and external hemorrhoid complex, right posterior and right anterior internal and external hemorrhoid component. Hemostasis had been achieved. Gelfoam and Vaseline gauze plug was then created and inserted into the anus to hold pressure for hemostasis. The patient tolerated the procedure well without any complications. She was taken to recovery room in stable condition. Job ID: [id number] DocumentID: [id number] Dictated Date: 03/28/2023 22:56:33 Legislative Advocate Date: 03/29/2023 04:22:00 Dictated By: DINA MORILLO DO
[2023-03-31] MEDS ORDERED: TRM50T PO (17:07)
== END 2023-03-28 15:30 | disposition home or self-care (01) ==
LOC: SDC 10:51
PROVIDERS: ATTEND Surgery
DX: K64.8 Other hemorrhoids (principal); K64.4 Residual hemorrhoidal skin tags; F17.290 Nicotine dependence, other tobacco product, uncomplicated
CPT/HCPCS: 87081

== ENCOUNTER 2023-04-01 08:13 | Emergency (ER) | payer OTHER ==
[~2023-04-01] VITALS: Ht 170 cm; Wt 102.0 kg
[~2023-04-01 08:13] MED LIST changes: +TRM50T PO
[2023-04-01 08:24] VITALS: BP 139/69
[2023-04-01 09:11] LABS: BILIRUBIN,URINE NEGATIVE (NEGATIVE); CLARITY,URINE CLEAR; COLOR,URINE YELLOW; GLUCOSE, URINE (UA) NEGATIVE (NEGATIVE); KETONES,URINE NEGATIVE (NEGATIVE); LEUKOCYTE ESTERASE ,URINE NEGATIVE (NEGATIVE); NITRITE,URINE NEGATIVE (NEGATIVE); PH,URINE 6.5 (5-9); PROTEIN,URINE NEGATIVE (NEGATIVE)
[2023-04-01 09:20] LABS: BACTERIA,URINE TRACE /HPF; SQUAMOUS EPITHELIAL CELL,UR 0-2 /HPF
[2023-04-01 09:22] LABS: RBC,URINE RARE /HPF; WBC,URINE RARE /HPF
--- NOTE | 2023-04-01 09:56 | ED Back Pain ---
General Chief Complaint: Back Problems Stated Complaint: LOWER BACK PAIN | POST OP HEMMORHOID SURGERY 03/28 Nursing Triage Note: PT IS 4 DAYS POST HEMORRHOID SURGERY AND HAS STARTED TO HAVE BACK PAIN Source of Information: Patient Exam Limitations: No Limitations (POPEYE NEGRON) History of Present Illness Date Seen by Provider: Apr 01, 2023 Time Seen by Provider: 09:15 Initial Comments Our patient is a 33 yo F who presented to the emergency department for severe lumbar back pain 4 days s/p hemorrhoidectomy. She states that she underwent a hemorrhoidectomy procedure on Friday, 03/28, in which 3 external hemorrhoids were excised and the wound left open. On Friday evening she began to notice pain in her lumbar spine that has continually worsened since then. She localizes her pain to the area between L2-L5, across the central portion of the back, that radiates along her side in a band-like pattern. She describes the pain as sharp, and stabbing, 8/10 currently but 10/10 at its worst. It is aggrevated by sudden movements and twisting motions as well as ambulation and palpation. She notes that tylenol and ibuprofen have not made a difference in her symptoms and hydrocodone has only "taken the edge off" without resolving her pain. In addition, she has tried sitting on the heat warmers in her car that provided a small amount of relief. This pain is accompanied by nausea without vomiting, subjective fever yesterday, abdominal pain, urinary hesitancy with slight burning sensation. She has had a single bowel movement since Friday. She notes a similar occurrence of pain after experiencing a slipped disc which was treated with a dudley-laminectomy 3 or 4 years ago. She denies any specific inciting incident, denies numbness, tingling, or loss of sensation in the back or legs. She states that Dr. Martin prescribed her tramadol but she has not yet had a chance to pick this up. Location: Lumbar Spine Timing/Duration: 2-3 Days, Constant Severity: Severe Radiation: Other (In a band-like pattern along the side) Method of Injury: Unknown Modifying Factors: Worse With Movement; Improves With Pain Medication Associated Symptoms: fever; No weakness, No numbness in legs/feet, No tingling in legs/feet, No sensory/motor loss; lower back pain; No loss of bladder control, No loss of bowel control (POPEYE NEGRON) Initial Comments Patient reports she ran out of her postop pain medication and has not filled the Ultram prescribed as a replacement. The hydrocodone she was taking did not seem to help her back pain. Muscle relaxers also were ineffective in relieving her pain. She denies any trauma recently or in the past. She denies any radicular symptoms. (KESHAWN CROOKS MD) Allergies and Home Medications Allergies Coded Allergies: azithromycin (Unverified Adverse Reaction, Mild, N/V, 03/27/23) Patient Home Medication List Home Medication List Reviewed: Yes (KESHAWN CROOKS MD) Clonazepam (Klonopin) 1 Mg Tablet, 1 MG PO BID, (Reported) Entered as Reported by: ADRIANA VALDIVIA on 08/14/22 0828 Dextroamphetamine/Amphetamine (Mydayis ER 50 mg Capsule) 50 Mg Cptp.24hr, 50 MG PO DAILY, (Reported) Entered as Reported by: VIVEK VALADEZ on 03/27/23 09 Docusate Sodium (Colace) 100 Mg Capsule, 100 MG PO BID Prescribed by: DINA MARTIN on 03/28/23 1321 Escitalopram Oxalate (Escitalopram Oxalate) 20 Mg Tablet, 20 MG PO DAILY, (Reported) Entered as Reported by: VIVEK VALADEZ on 03/27/23 09 Hydrocodone/Acetaminophen (Hydrocodone-Acetamin 5-325 mg) 5 Mg-325 Mg Tablet, 1- 2 EACH PO Q6H PRN for PAIN-MODERATE (5-7) Prescribed by: DINA MARTIN on 03/28/23 1322 Oxycodone HCl/Acetaminophen (Percocet 5-325 mg Tablet) 1 Each Tablet, 1-2 TAB PO Q6H PRN for PAIN BREAKTROUGH Prescribed by: KESHAWN OLMSTEAD on 04/01/23 1254 Prednisone (Prednisone) 20 Mg Tab, 40 MG PO DAILY Prescribed by: KESHAWN OLMSTEAD on 04/01/23 1253 Semaglutide (Wegovy) 0.25 Mg/0.5 Ml Pen.injctr, 0.25 MG SQ WEEK, (Reported) Entered as Reported by: VIVEK VALADEZ on 03/27/23 0925 Tramadol HCl (Tramadol HCl) 50 Mg Tablet, 50 MG PO Q4H PRN for PAIN Prescribed by: DINA MARTIN on 03/31/23 1708 Discontinued Medications Aripiprazole (Abilify) 20 Mg Tablet, 20 MG PO HS, (Reported) Discontinued Reason: No Longer Taking Entered as Reported by: ADRIANA VALDIVIA on 08/14/2228 Dextroamphetamine/Amphetamine (Dextroamp-Amphet ER 20 mg Cap) 20 Mg Cap.er.24h, 20 MG PO DAILY, (Reported) Discontinued Reason: Prescription changed Entered as Reported by: ADRIANA VALDIVIA on 08/14/22827 Hydrocortisone (Anusol-Hc) 2.5 % Cream..g., 30 GM RC BID Discontinued Reason: No Longer Taking Prescribed by: ROMULO HEAD on 03/24/23 1528 Ondansetron (Ondansetron Odt) 4 Mg Tab.rapdis, 4 MG SL Q4H PRN for NAUSEA/VOMITING Discontinued Reason: No Longer Taking Prescribed by: Ann Smith on 12/04/222012 Review of Systems Constitutional: No chills; fever (subjective yesterday); No weakness EENTM: no symptoms reported Respiratory: no symptoms reported; No cough, No short of breath Cardiovascular: no symptoms reported; No chest pain, No edema Gastrointestinal: RLQ, LLQ, abdominal pain, nausea; No vomiting Genitourinary: dysuria, hesitancy Musculoskeletal: see HPI, back pain Skin: no symptoms reported; No rash Psychiatric/Neurological: No Symptoms Reported; Denies Numbness, Denies Paresthesia, Denies Tingling, Denies Weakness (POPEYE NEGRON) Past Duedgrg-Kynxaz-Mpmchh Hx Patient Social History Tobacco Use?: No Use of E-Cig and/or Vaping dev: Yes E-Cig or Vaping type used: Nicotine, Marijuana Use of E-Cig and/or Vaping Justen: Current Everyday User Substance use?: Yes Substance type: Marijuana Substance frequency: Once in a while Alcohol Use?: No Pt feels they are or have been: No (POPEYE NEGRON) Immunizations Up To Date Tetanus Booster (TDap): Unknown PED Vaccines UTD: Yes First/Initial COVID19 Vaccinat: 04/2021 Second COVID19 Vaccination Juan Antonio: 04/2021 Third COVID19 Vaccination Date: 04/2021 (POPEYE NEGRON) Seasonal Allergies Seasonal Allergies: Yes (POPEYE NEGRON) Past Medical History Surgery/Hospitalization HX: bipolar 2, adhd, manic depression Surgeries: Yes (back sx, tubal then reversal, d&c, gastric sleeve) Abdominal, Section, Gallbladder, Hysterectomy, Orthopedic (lumbar dudley- laminectomy), Tonsillectomy, 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 Respiratory: Yes ([facility]ON[facility] [employer] YOUNGER) Asthma Currently Using CPAP: No Currently Using BIPAP: No Cardiac: Yes Hypertension, Irregular Heartbeat Neurological: Yes Concussion, Headaches /Migraines Reproductive Disorders: No Female Reproductive Disorders: Denies, Endometriosis 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, 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 Sexually Transmitted Disease: No HIV/AIDS: No Genitourinary: No Gastrointestinal: Yes (rectal bleeding) Hemorrhoids, Gall Bladder Disease Musculoskeletal: Yes Degenerate Disk Disease, Arthritis, Scoliosis Endocrine: No HEENT: No Loss of Vision: Denies Hearing Impairment: Denies Cancer: No Psychosocial: Yes Anxiety, Depression Integumentary: No Blood Disorders: No Adverse Reaction/Blood Tranf: No (N/A) (POPEYE NEGRON) Family Medical History Colon cancer Heart Disease (In maternal grandfather) (POPEYE NEGRON) Physical Exam Vital Signs Vital Signs - First Documented 04/01/23 08:24 Temp 36.0 Pulse 84 Resp 18 B/P (MAP) 139/69 (92) Pulse Ox 99 O2 Delivery Room Air (KESHAWN CROOKS MD) Vital Signs Capillary Refill : Less Than 3 Seconds (POPEYE NEGRON) Height, Weight, BMI Height: 5'7.00" Weight: 265lbs. 9.8oz. 120.386815xm; 35.00 BMI Method:Stated General Appearance: Anxious, Mild Distress, Obese HEENT: PERRL/EOMI, Moist Mucous Membranes; No Scleral Icterus (L), No Scleral Icterus (R) Neck: Normal Inspection, Non Tender, Supple Cardiovascular: Regular Rate, Rhythm, No Edema, No Gallop, No JVD, No Murmur, Normal Peripheral Pulses Respiratory: Chest Non Tender, Lungs Clear, Normal Breath Sounds, No Accessory Muscle Use, No Respiratory Distress Peripheral Pulses: 2+ Radial Pulses (R), 2+ Radial Pulses (L) Gastrointestinal: Normal Bowel Sounds, No Organomegaly, Non Tender, Soft Back: Decreased Range of Motion, Vertebral Tenderness (Diffuse lumbar tenderness more localized to the center of the lumbar spine at levels L2-L5) Extremity: Normal Capillary Refill, Normal Inspection, Non Tender, No Calf Tenderness, No Pedal Edema Neurologic/Psychiatric: Alert, Oriented x3, No Motor/Sensory Deficits, Normal Mood/Affect Skin: Normal Color, Warm/Dry (POPEYE NEGRON) Progress/Results/Core Measures Results/Orders Lab Results Laboratory Tests Test 04/01/23 09:06 Range/Units Urine Color YELLOW Urine Clarity CLEAR Urine pH 6.5 5-9 Urine Specific Hilton 1.015 L 1.016-1.022 Urine Protein NEGATIVE NEGATIVE Urine Glucose (UA) NEGATIVE NEGATIVE Urine Ketones NEGATIVE NEGATIVE Urine Nitrite NEGATIVE NEGATIVE Urine Bilirubin NEGATIVE NEGATIVE Urine Urobilinogen 2.0 < = 1.0 MG/DL Urine Leukocyte Esterase NEGATIVE NEGATIVE Urine RBC (Auto) 1+ H NEGATIVE Urine RBC RARE /HPF Urine WBC RARE /HPF Urine Squamous Epithelial Cells 0-2 /HPF Urine Crystals NONE /LPF Urine Bacteria TRACE /HPF Urine Casts NONE /LPF Urine Mucus NEGATIVE /LPF Urine Culture Indicated NO (KESHAWN CROOKS MD) My Orders Orders - KESHAWN CROOKS MD Ua Culture If Indicated (04/01/23 08:31) Ketorolac Injection (Toradol Injection) (04/01/23 13:00) (KESHAWN CROOKS MD) Medications Given in ED (KESHAWN CROOKS MD) Vital Signs/I&O 04/01/23 04/01/23 08:24 08:32 Temp 36.0 36.0 Pulse 84 84 Resp 18 18 B/P (MAP) 139/69 (92) 139/69 (92) Pulse Ox 99 99 O2 Delivery Room Air Room Air (KESHAWN CROOKS MD) Blood Pressure Mean: 92 Progress Progress Note : Progress Note Patient was interviewed and examined by me personally along with MS4. Toradol was given for treatment of her pain as she has not had any NSAIDs yet this morning. A short-term prescription for opioid analgesics was provided. She was also given a prescription for prednisone presuming this is an exacerbation of her existing lumbar disc disease. Patient intends to follow-up with her orthopedic spine surgeon, Dr. Angel. Discharge instructions were reviewed. See discharge instructions for further discussion. (KESHAWN CROOKS MD) Departure Impression Primary Impression: Low back pain Qualified Codes: M54.50 - Low back pain, unspecified Additional Impression: Postoperative pain Disposition: 01 HOME, SELF-CARE Condition: Stable Departure-Patient Inst. Decision time for Depature: 12:51 (KESHAWN CROOKS MD) Referrals: JF BOYKIN (PCP/Family) Primary Care Physician Patient Instructions: Low back pain in adults Add. Discharge Instructions: You may use ibuprofen up to 600 mg every 6 hours as needed for primary pain control. Add either Tylenol 1000 mg every 6 hours or Percocet as prescribed for pain not well controlled by ibuprofen. Use the prednisone steroids as prescribed. Take prednisone early in the day to avoid sleep disturbance and take with food or milk to avoid upset stomach. Follow-up with your primary care provider and/or your spine surgeon as soon as possible for further evaluation. Work toward weight loss to reduce strain on your back. Return to the emergency room if you have worsening symptoms, especially if you develop weakness in your legs, difficulty urinating, bowel control problems, or numbness in your groin. Follow your post-operative instructions. All discharge instructions reviewed with patient and/or family. Voiced understanding. Scripts Prednisone (Prednisone) 20 Mg Tab 40 MG PO DAILY, #8 TAB 0 Refills Prov: KESHAWN CROOKS MD 04/01/23 Oxycodone HCl/Acetaminophen (Percocet 5-325 mg Tablet) 1 Each Tablet 1-2 TAB PO Q6H PRN for PAIN BREAKTROUGH MDD 6 TABS, #15 TAB Prov: KESHAWN CROOKS MD 04/01/23 Medical Student Attestation and Attending Note: I have personally interviewed and examined this patient along with Popeye Negron MS4. I have reviewed student documentation including history, physical, and assessments. I agree with the documentation except where otherwise noted. Exam: General: Alert, oriented, no acute distress, well developed HEENT: Normocephalic and atraumatic Heart: Regular rate and rhythm without murmur Lungs: Clear to auscultation bilaterally with normal effort Back: Minimal TTP in the lumbar paraspinous regions, no lumbar spine TTP. Exam limited by body habitus Neuropsych: Alert, oriented, no focal deficits Skin: Warm and dry without rashes (KESHAWN CROOKS MD) Copy Copies To 1: CHIN ANGEL JOSEPH D Apr 01, 2023 09:56 KESHAWN CROOKS MD Apr 01, 2023 12:55
[2023-04-01] MEDS ORDERED: OXYC1TAB87 PO (12:53)
[2023-04-01] MEDS ORDERED: PRD20T PO (12:53)
[2023-04-01] MEDS ORDERED: KETOROLAC 30 MG/ML VIAL IVP ONE (13:00)
== END 2023-04-01 13:30 | disposition home or self-care (01) ==
LOC: EDUNIT# 08:13 → ER 08:15
DX: G89.18 Other acute postprocedural pain (principal); M54.50 Low back pain, unspecified; E66.9 Obesity, unspecified; F17.290 Nicotine dependence, other tobacco product, uncomplicated; Z68.35 Body mass index [BMI] 35.0-35.9, adult
CPT/HCPCS: 81000

== ENCOUNTER 2023-08-04 15:53 | Emergency (ER) | payer BC ==
[~2023-08-04] VITALS: Ht 170.1 cm; Wt 106.5 kg
[~2023-08-04 15:53] MED LIST changes: -GABA-490 PO; +GABA-491 PO; +OXYC1TAB87 PO; +PRD20T PO
--- NOTE | 2023-08-04 16:25 | ED Abdominal Pain ---
General Chief Complaint: Abdominal/GI Problems Stated Complaint: LOWER ABD PAIN, POSS APPENDICITIS Nursing Triage Note: PT AMB TO RM 10 WITH CC OF RIGHT LOWER QUADRANT PAIN THAT STARTED LATE FRIDAY NIGHT. PT STATES THAT SHE HAS HAD NAUSEA AND IS NOT ABLE TO EAT DUE TO INCREASE IN PAIN. Source of Information: Patient Exam Limitations: No Limitations History of Present Illness Date Seen by Provider: Aug 04, 2023 Time Seen by Provider: 15:56 Initial Comments 33-year-old female presents to the ER with complaint of right lower quadrant abdominal pain starting Friday night, 08/01/23. She reports that she was seen at the walk-in clinic today, they did an ultrasound but could not find her appendix, so they suggested that she come here. She reports they did a urinalysis which was normal. She reports feeling as though she has a low-grade temperature, has not checked it, she just felt warm. She reports 1 episode of loose stool today. She states that the pain sometimes seems to be worse after eating. She reports nausea, no vomiting. She reports that her abdomen hurts worse when she bears down to have a bowel movement or urinate, states it also hurts worse when she walks. She has had a partial hysterectomy and a cholecystectomy. Allergies and Home Medications Allergies Coded Allergies: ondansetron (Verified Allergy, Unknown, 08/04/23) HIVES azithromycin (Unverified Adverse Reaction, Mild, N/V, 03/27/23) Patient Home Medication List Home Medication List Reviewed: Yes Clonazepam (Klonopin) 1 Mg Tablet, 1 MG PO BID, (Reported) Entered as Reported by: ADRIANA VALDIVIA on 08/14/22 0828 Dextroamphetamine/Amphetamine (Mydayis ER 50 mg Capsule) 50 Mg Cptp.24hr, 50 MG PO DAILY, (Reported) Entered as Reported by: VIVEK VALADEZ on 03/27/23 0925 Docusate Sodium (Colace) 100 Mg Capsule, 100 MG PO BID Prescribed by: DINA MARTIN on 03/28/23 1321 Escitalopram Oxalate (Escitalopram Oxalate) 20 Mg Tablet, 20 MG PO DAILY, (Reported) Entered as Reported by: VIVEK VALADEZ on 03/27/23 0925 Hydrocodone/Acetaminophen (Hydrocodone-Acetamin 5-325 mg) 5 Mg-325 Mg Tablet, 1- 2 EACH PO Q6H PRN for PAIN-MODERATE (5-7) Prescribed by: DINA MARTIN on 03/28/23 1322 Omeprazole (Omeprazole) 20 Mg Tablet.dr, 20 MG PO DAILY Prescribed by: Ann Smith on 08/04/23 1822 Oxycodone HCl/Acetaminophen (Percocet 5-325 mg Tablet) 1 Each Tablet, 1-2 TAB PO Q6H PRN for PAIN BREAKTROUGH Prescribed by: KESHAWN OLMSTEAD on 04/01/23 1254 Prednisone (Prednisone) 20 Mg Tab, 40 MG PO DAILY Prescribed by: KESHAWN OLMSTEAD on 04/01/23 1253 Semaglutide (Wegovy) 0.25 Mg/0.5 Ml Pen.injctr, 0.25 MG SQ WEEK, (Reported) Entered as Reported by: VIVEK VALADEZ on 03/27/23 0925 Tramadol HCl (Tramadol HCl) 50 Mg Tablet, 50 MG PO Q4H PRN for PAIN Prescribed by: DINA MARTIN on 03/31/23 1708 Review of Systems Review of Systems Constitutional: see HPI Past Ydhabuc-Dlcuyh-Cswttf Hx Patient Social History Tobacco Use?: Yes Use of E-Cig and/or Vaping dev: Yes E-Cig or Vaping type used: Nicotine, Marijuana Substance use?: Yes Substance type: Marijuana Alcohol Use?: No Immunizations Up To Date Tetanus Booster (TDap): Unknown PED Vaccines UTD: Yes First/Initial COVID19 Vaccinat: 04/2021 Second COVID19 Vaccination Juan Antonio: 04/2021 Third COVID19 Vaccination Date: 04/2021 Seasonal Allergies Seasonal Allergies: Yes Past Medical History Surgery/Hospitalization HX: bipolar 2, adhd, manic depression, HYSTERECTOMY, GALLBLADDER Surgeries: Yes (back sx, tubal then reversal, d&c, gastric sleeve) Abdominal, Section, Gallbladder, Hysterectomy, Orthopedic, Tonsillectomy, 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 Respiratory: Yes (SEASONAL WHEN YOUNGER) Asthma Currently Using CPAP: No Currently Using BIPAP: No Cardiac: Yes Hypertension, Irregular Heartbeat Neurological: Yes Concussion, Headaches /Migraines Reproductive Disorders: No Female Reproductive Disorders: Denies, Endometriosis 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 History: Hysterectomy, 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 Sexually Transmitted Disease: No HIV/AIDS: No Genitourinary: No Gastrointestinal: Yes (rectal bleeding) Hemorrhoids, Gall Bladder Disease Musculoskeletal: Yes Degenerate Disk Disease, Arthritis, Scoliosis Endocrine: No HEENT: No Loss of Vision: Denies Hearing Impairment: Denies Cancer: No Psychosocial: Yes Anxiety, Depression Integumentary: No Blood Disorders: No Adverse Reaction/Blood Tranf: No (N/A) Family Medical History Colon cancer Heart Disease Physical Exam Vital Signs Vital Signs - First Documented 08/04/23 16:01 Temp 37.0 Pulse 66 B/P (MAP) 134/82 (99) Pulse Ox 98 O2 Delivery Room Air Capillary Refill : Height/Weight/BMI Height: 5'7.00" Weight: 265lbs. 9.8oz. 120.992502os; 36.00 BMI Method:Stated General Appearance: WD/WN, mild distress Neck: supple, normal inspection Respiratory: lungs clear, normal breath sounds, no respiratory distress, no accessory muscle use Cardiovascular: regular rate, rhythm Gastrointestinal: normal bowel sounds, soft; No guarding; rebound, tenderness (Right lower quadrant) Extremities: normal range of motion, normal inspection Neurologic/Psychiatric: alert, normal mood/affect Skin: normal color, warm/dry Progress/Results/Core Measures Results/Orders Lab Results Laboratory Tests Test 08/04/23 16:00 08/04/23 16:07 Range/Units Urine Color YELLOW Urine Clarity CLEAR Urine pH 7.0 5-9 Urine Specific [place] 1.025 H 1.016-1.022 Urine Protein NEGATIVE NEGATIVE Urine Glucose (UA) NEGATIVE NEGATIVE Urine Ketones NEGATIVE NEGATIVE Urine Nitrite NEGATIVE NEGATIVE Urine Bilirubin NEGATIVE NEGATIVE Urine Urobilinogen 1.0 < = 1.0 MG/DL Urine Leukocyte Esterase NEGATIVE NEGATIVE Urine RBC (Auto) NEGATIVE NEGATIVE Urine RBC NONE /HPF Urine WBC RARE /HPF Urine Squamous Epithelial Cells 2-5 /HPF Urine Crystals NONE /LPF Urine Bacteria NEGATIVE /HPF Urine Casts NONE /LPF Urine Mucus NEGATIVE /LPF Urine Culture Indicated NO White Blood Count 9.2 4.3-11.0 10^3/uL Red Blood Count 4.89 3.80-5.11 10^6/uL Hemoglobin 14.7 11.5-16.0 g/dL Hematocrit 45 35-52 % Mean Corpuscular Volume 91 80-99 fL Mean Corpuscular Hemoglobin 30 25-34 pg Mean Corpuscular Hemoglobin Concent 33 32-36 g/dL Red Cell Distribution Width 12.1 10.0-14.5 % Platelet Count 271 130-400 10^3/uL Mean Platelet Volume 10.2 9.0-12.2 fL Immature Granulocyte % (Auto) 0 % Neutrophils (%) (Auto) 68 42-75 % Lymphocytes (%) (Auto) 26 12-44 % Monocytes (%) (Auto) 5 0-12 % Eosinophils (%) (Auto) 1 0-10 % Basophils (%) (Auto) 1 0-10 % Neutrophils # (Auto) 6.3 1.8-7.8 10^3/uL Lymphocytes # (Auto) 2.4 1.0-4.0 10^3/uL Monocytes # (Auto) 0.4 0.0-1.0 10^3/uL Eosinophils # (Auto) 0.1 0.0-0.3 10^3/uL Basophils # (Auto) 0.1 0.0-0.1 10^3/uL Immature Granulocyte # (Auto) 0.0 0.0-0.1 10^3/uL Sodium Level 139 135-145 MMOL/L Potassium Level 3.7 3.6-5.0 MMOL/L Chloride Level 108 H 98-107 MMOL/L Carbon Dioxide Level 22 21-32 MMOL/L Anion Gap 9 5-14 MMOL/L Blood Urea Nitrogen 6 L 7-18 MG/DL Creatinine 0.82 0.60-1.30 MG/DL Estimat Glomerular Filtration Rate 96 BUN/Creatinine Ratio 7 Glucose Level 91 70-105 MG/DL Calcium Level 9.3 8.5-10.1 MG/DL Corrected Calcium 8.5-10.1 MG/DL Total Bilirubin 0.5 0.1-1.0 MG/DL Aspartate Amino Transf (AST/SGOT) 14 5-34 U/L Alanine Aminotransferase (ALT/SGPT) 13 0-55 U/L Alkaline Phosphatase 53 40-136 U/L C-Reactive Protein High Sensitivity 0.16 0.00-0.50 MG/DL Total Protein 7.6 6.4-8.2 GM/DL Albumin 4.8 H 3.2-4.5 GM/DL Lipase 22 8-78 U/L My Orders Orders - HARRISON,ANN R KEY BED INSTALLER Ua Culture If Indicated (08/04/23 15:56) Urine Bedside (08/04/23 15:56) Comprehensive Metabolic Panel (08/04/23 16:17) Lipase (08/04/23 16:17) Ed Iv/Invasive Line Start (08/04/23 16:17) Cbc And Automated Diff (08/04/23 16:17) Hs C Reactive Protein (08/04/23 16:17) Fentanyl Injection (Fentanyl Injection (08/04/23 16:30) Promethazine Injection (Promethazine I (08/04/23 16:30) Ns Iv 1000 Ml (Ns Iv 1000 Ml) (08/04/23 16:30) Ct Abd/Pelv W (Appendicitis) (08/04/23 16:36) Iohexol Injection (Omnipaque 350 Mg/Ml 1 (08/04/23 17:00) Ns (Ivpb) 100 Ml (Sodium Chloride 0.9% 1 (08/04/23 17:00) Pantoprazole Injection (Pantoprazole Inj (08/04/23 18:00) Lidocaine 2% Viscous 15 Ml (Xylocaine Vi (08/04/23 18:00) Antacid Suspension (Antacid Suspension (08/04/23 18:00) Medications Given in ED Current Medications Medications Dose Ordered Sig/Maru Route Start Time Stop Time Status Last Admin Dose Admin Al Hydrox/Mg Hydrox/Simethicone 30 ml ONCE ONCE PO 08/04/23 18:00 08/04/23 18:01 DC 08/04/23 17:58 30 ML Fentanyl Citrate 50 mcg ONCE ONCE IVP 08/04/23 16:30 08/04/23 16:31 DC 08/04/23 16:28 50 MCG Iohexol 100 ml ONCE ONCE IV 08/04/23 17:00 08/04/23 17:01 DC 08/04/23 17:00 100 ML Lidocaine HCl 15 ml ONCE ONCE PO 08/04/23 18:00 08/04/23 18:01 DC 08/04/23 17:58 15 ML Pantoprazole 40 mg ONCE ONCE IV 08/04/23 18:00 08/04/23 18:01 DC 08/04/23 17:58 40 MG Promethazine HCl 12.5 mg ONCE ONCE IVP 08/04/23 16:30 08/04/23 16:31 DC 08/04/23 16:28 12.5 MG Sodium Chloride 100 ml ONCE ONCE IV 08/04/23 17:00 08/04/23 17:01 DC 08/04/23 17:00 80 ML Vital Signs/I&O 08/04/23 08/04/23 16:01 18:26 Temp 37.0 Pulse 66 B/P (MAP) 134/82 (99) 117/86 Pulse Ox 98 O2 Delivery Room Air Blood Pressure Mean: 99 Progress Progress Note : Progress Note Patient seen and evaluated, resting in bed, mild distress. Based on exam and symptoms, work-up initiated included CBC, CMP, lipase, UA, . IV fluids, fentanyl, Phenergan ordered. [address] reviewed. CBC grossly normal. CMP grossly normal. Lipase normal. Urinalysis shows elevated urine specific gravity 1.025, negative for infection. CT shows no evidence of acute abnormality. She does have a 3 mm cyst in the left adnexal region likely ovarian in nature. This is likely not the cause of her pain since her pain is in the right lower quadrant. Results discussed with patient. Patient reports some improvement in pain after fentanyl. Pain could be from gastritis, due to the pain becoming worse after eating. Will treat with GI cocktail and Protonix. And discharge with 6-week course of omeprazole. 1819 patient reports some more improvement in pain. Patient is stable for discharge at this time. Discharge instructions and return precautions provided. Diagnostic Imaging Diagonstic Imaging: CT Plain Films/CT/US/NM/MRI: abdomen, pelvis Comments [facility], [place] NAME: ANN GRAFF [facility] REC#: [id number] PT STATUS: REG ER : 1990 PHYSICIAN: ANN TERRY KEY BED INSTALLER ADMIT DATE: 08/04/23/ER Signed Date of Exam:08/04/23 CT ABD/PELV W (APPENDICITIS) PROCEDURE: CT abdomen and pelvis with contrast, rule out appendicitis. TECHNIQUE: Multiple contiguous axial images were obtained through the abdomen and pelvis after the administration of intravenous contrast. All CT scans use one or more of the following dose optimizing techniques: automated exposure control, MA and/or KvP adjustment based on patient size and exam type or iterative reconstruction. INDICATION: Right lower quadrant abdominal pain. COMPARISON: 06/03/2022. FINDINGS: No focal hepatic or splenic abnormalities identified. Gallbladder is surgically absent and there are surgical sutures along the greater curvature of the stomach. No pancreatic, adrenal gland or focal renal abnormality is seen. There is no evidence of bowel obstruction. There is no evidence of free intraperitoneal gas. No pathologically enlarged adenopathy is detected. Note is made of an approximately 3 cm cyst in left adnexal region. There is no evidence of appendiceal region inflammation. No other organized fluid collection is detected. There is advanced L5-S1 degenerative disc disease. IMPRESSION: 1. No evidence of acute abnormality seen within the abdomen or pelvis. 2. Cholecystectomy and gastric surgery. 3. 3 cm cyst in left adnexal region is likely ovarian in nature. Consideration could be given to ultrasonography, if indicated. Dictated by: Dictated on workstation # [id number] Dict: 08/04/231705 Trans: 08/04/231802 [id number] Interpreted by: JACIEL RASHID MD Electronically signed by: JACIEL RASHID MD 08/04/231802 Departure Impression Primary Impression: Abdominal pain Qualified Codes: R10.31 - Right lower quadrant pain Disposition: 01 HOME, SELF-CARE Condition: Stable Departure-Patient Inst. Decision time for Depature: 18:19 Referrals: JF BOYKIN (PCP/Family) Primary Care Physician Patient Instructions: Abdominal pain Add. Discharge Instructions: Take omeprazole once a day for the next 6 weeks. Omeprazole takes a while to start working, so you may also try Tums, Maalox, or Mylanta [id number]. Follow-up with your primary care provider if symptoms do not improve. Return for any new, concerning, or worsening symptoms. All discharge instructions reviewed with patient and/or family. Voiced understanding. Scripts Omeprazole (Omeprazole) 20 Mg Tablet. 20 MG PO DAILY for 42 Days, #42 TAB 0 Refills Prov: ANN TERRY APRN 08/04/23 ANN TERRY APRN Aug 04, 2023 16:25
[2023-08-04 16:27] LABS: ALBUMIN 4.8 GM/DL (3.2-4.5); CHLORIDE 108 MMOL/L (98-107); POTASSIUM 3.7 MMOL/L (3.6-5.0); SODIUM 139 MMOL/L (135-145)
[2023-08-04 16:28] LABS: BASOPHILS # (AUTO) 0.1 10^3/uL (0.0-0.1); BASOPHILS % (AUTO) 1 % (0-10); EOSINOPHILS # (AUTO) 0.1 10^3/uL (0.0-0.3); EOSINOPHILS % (AUTO) 1 % (0-10); HEMATOCRIT 45 % (35-52); HEMOGLOBIN 14.7 g/dL (11.5-16.0); LYMPHOCYTES # (AUTO) 2.4 10^3/uL (1.0-4.0); LYMPHOCYTES % (AUTO) 26 % (12-44); MEAN CORPUSCULAR HEMOGLOBIN 30 pg (25-34); MEAN CORPUSCULAR HGB CONC 33 g/dL (32-36); MEAN CORPUSCULAR VOLUME 91 fL (80-99); MEAN PLATELET VOLUME 10.2 fL (9.0-12.2); MONOCYTES # (AUTO) 0.4 10^3/uL (0.0-1.0); MONOCYTES % (AUTO) 5 % (0-12); NEUTROPHILS # (AUTO) 6.3 10^3/uL (1.8-7.8); NEUTROPHILS % (AUTO) 68 % (42-75); PLATELET COUNT 271 10^3/uL (130-400); WHITE BLOOD COUNT 9.2 10^3/uL (4.3-11.0)
[2023-08-04 16:29] LABS: CALCIUM 9.3 MG/DL (8.5-10.1)
[2023-08-04 16:30] LABS: GLUCOSE 91 MG/DL (70-105); TOTAL PROTEIN 7.6 GM/DL (6.4-8.2)
[2023-08-04] MEDS ORDERED: fentaNYL INJECTION 100 MCG/2 ML VIAL IVP ONE (16:30)
[2023-08-04] MEDS ORDERED: NS IV 1000 ML 1,000 ML IV SCH (16:30)
[2023-08-04] MEDS ORDERED: PROMETHAZINE INJ 25 MG/ML VIAL IVP ONE (16:30)
[2023-08-04 16:31] LABS: CARBON DIOXIDE 22 MMOL/L (21-32)
[2023-08-04 16:32] LABS: CLARITY,URINE CLEAR; COLOR,URINE YELLOW; GLUCOSE, URINE (UA) NEGATIVE (NEGATIVE); PROTEIN,URINE NEGATIVE (NEGATIVE)
[2023-08-04 16:32] LABS: BILIRUBIN,TOTAL 0.5 MG/DL (0.1-1.0)
[2023-08-04 16:33] LABS: BACTERIA,URINE NEGATIVE /HPF; BILIRUBIN,URINE NEGATIVE (NEGATIVE); KETONES,URINE NEGATIVE (NEGATIVE); LEUKOCYTE ESTERASE ,URINE NEGATIVE (NEGATIVE); NITRITE,URINE NEGATIVE (NEGATIVE); WBC,URINE RARE /HPF
[2023-08-04 16:33] LABS: ALKALINE PHOSPHATASE 53 U/L (40-136)
[2023-08-04 16:34] LABS: CREATININE SERUM 0.82 MG/DL (0.60-1.30); GFR ESTIMATED 96
[2023-08-04 16:35] LABS: BUN/CREATININE RATIO 7
[2023-08-04 16:37] LABS: ALANINE AMINOTRANSFERASE 13 U/L (0-55); LIPASE 22 U/L (8-78)
[2023-08-04] MEDS ORDERED: IOHEXOL 350 MG/ML 100 ML (OMNIPAQUE 350) VIAL IV ONE (17:00)
[2023-08-04] MEDS ORDERED: NS 100 ML (IVPB) BAG IV ONE (17:00)
--- NOTE | 2023-08-04 17:16 | Diagnostic Imaging Report ---
PROCEDURE: CT abdomen and pelvis with contrast, rule out appendicitis. TECHNIQUE: Multiple contiguous axial images were obtained through the abdomen and pelvis after the administration of intravenous contrast. All CT scans use one or more of the following dose optimizing techniques: automated exposure control, MA and/or KvP adjustment based on patient size and exam type or iterative reconstruction. INDICATION: Right lower quadrant abdominal pain. COMPARISON: 06/03/2022. FINDINGS: No focal hepatic or splenic abnormalities identified. Gallbladder is surgically absent and there are surgical sutures along the greater curvature of the stomach. No pancreatic, adrenal gland or focal renal abnormality is seen. There is no evidence of bowel obstruction. There is no evidence of free intraperitoneal gas. No pathologically enlarged adenopathy is detected. Note is made of an approximately 3 cm cyst in left adnexal region. There is no evidence of appendiceal region inflammation. No other organized fluid collection is detected. There is advanced L5-S1 degenerative disc disease. IMPRESSION: 1. No evidence of acute abnormality seen within the abdomen or pelvis. 2. Cholecystectomy and gastric surgery. 3. 3 cm cyst in left adnexal region is likely ovarian in nature. Consideration could be given to ultrasonography, if indicated. Dictated by: Dictated on workstation # [id number]
[2023-08-04] MEDS ORDERED: ANTACID SUSPENSION 30 ML UDC PO ONE (18:00)
[2023-08-04] MEDS ORDERED: PANTOPRAZOLE INJECTION 40 MG VIAL IV ONE (18:00)
[2023-08-04] MEDS ORDERED: LIDOCAINE 2% VISCOUS 15 ML UDC PO ONE (18:00)
[2023-08-04] MEDS ORDERED: OMEP20TA56 PO (18:22)
[2023-08-04 18:26] VITALS: BP 117/86
== END 2023-08-04 18:31 | disposition home or self-care (01) ==
LOC: EDUNIT# 15:53 → ER 15:56
DX: R10.31 Right lower quadrant pain (principal); N83.202 Unspecified ovarian cyst, left side; F17.290 Nicotine dependence, other tobacco product, uncomplicated; Z98.84 Bariatric surgery status; Z90.49 Acquired absence of other specified parts of digestive tract
CPT/HCPCS: 36415; 74177; 80053; 81000; 83690; 84703; 85025; 86141